=== PATIENT | male | born 1945 | race Caucasian/White ===

== ENCOUNTER → 2017-09-20 09:56 | Day surgery (SDC) | payer OTHER, SELFPAY ==
[2017-09-20 10:27] VITALS: BP 144/96; PULSE 70; TEMP 36.1; O2SAT 99; BMI 24.4
--- NOTE | 2017-09-20 11:09 | PM.HP.1 ---
History of Present Illness Chief complaint: [id number] Narrative: Eleuterio Avery is a 72 year old male He had polyps removed at his last colonoscopy 5 years ago. He is here for screening exam. PFS Medical History Prostate cancer (Acute) Surgical History Status post right knee replacement (Resolved) History of cataract surgery (Inactive) Family History Brother Cancer Prostate cancer Social History household members: spouse Meds Home Medications Medication Instructions Recorded Confirmed Type ASPIRIN (Aspirin EC) 81 mg PO Q DAY #0 10/09/10 09/20/17 History terazosin 5 mg PO Q DAY #0 02/04/17 09/20/17 History Generic Name Dose Route Start Last Admin Trade Name Freq PRN Reason Stop Dose Admin Flumazenil 0.2 mg 09/20/17 10:56 Romazicon IV PRN PRN Benzodiazepine Reversal Sodium Chloride 1,000 mls @ 200 mls/hr 09/20/17 11:00 09/20/17 11:12 Normal Saline 0.9% IV 200 mls/hr CONT TREVOR Administration Naloxone HCl 0.2 mg 09/20/17 10:56 Narcan IV Q2MIN PRN Opiate Reversal Allergies Allergy/AdvReac Type Severity Reaction Status Date / Time No Known Drug Allergies Allergy Verified 09/20/17 10:12 Review of Systems Review of Systems All systems reviewed & are unremarkable except as noted in HPI and below Exam Vital Signs (past 8 hours): Vital Signs - 8 hr 09/20/17 10:27 Temperature 97 F L Pulse Rate 70 Blood Pressure 144/96 H Pulse Oximetry 99 Pulse Oximetry 99 Oxygen Delivery Method Room Air Narrative Exam Narrative: Operative no apparent distress. Neck is supple. No nodes in the supraclavicular areas. Lungs clear to auscultation without rales or rhonchi. Heart regular rate and rhythm me as a 2/6 systolic murmur heard best at the left apex without radiation. Abdomen is mildly protuberant soft nontender without mass. Alert and oriented x3. Assessment & Plan Plan: Plan: I have discussed the procedure and the rationale with the patient including risks of bleeding, perforation which would necessitate a major operation, failure to find remove all lesions and the potential to tattoo. They appeared to understand and wished to proceed.
[2017-09-20] MEDS: SODIUM CHLORIDE 0.9% 1,000 ML 200 ML IV (11:12)
--- NOTE | 2017-09-20 11:15 | PM.PREOP ---
Pre-operative Note Interval Note Pre-op Check: History & Physical exam performed today H&P completed within 30 days and has changed as indicated here:: None ASA Class (for procedural sedation): II
--- NOTE | 2017-09-20 11:16 | P.HP_ITS ---
History of Present Illness Chief complaint: [id number] Narrative: Eleuterio Avery is a 72 year old male He had polyps removed at his last colonoscopy 5 years ago. He is here for screening exam. [facility] Medical History Prostate cancer (Acute) Surgical History Status post right knee replacement (Resolved) History of cataract surgery (Inactive) Family History Brother Cancer Prostate cancer Social History household members: spouse Meds Home Medications Medication Instructions Recorded Confirmed Type ASPIRIN (Aspirin EC) 81 mg PO Q DAY #0 10/09/10 09/20/17 History terazosin 5 mg PO Q DAY #0 02/04/17 09/20/17 History Generic Name Dose Route Start Last Admin Trade Name Freq PRN Reason Stop Dose Admin Flumazenil 0.2 mg 09/20/17 10:56 Romazicon IV PRN PRN Benzodiazepine Reversal Sodium Chloride 1,000 mls @ 200 mls/hr 09/20/17 11:00 09/20/17 11:12 Normal Saline 0.9% IV 200 mls/hr CONT TREVOR Administration Naloxone HCl 0.2 mg 09/20/17 10:56 Narcan IV Q2MIN PRN Opiate Reversal Allergies Allergy/AdvReac Type Severity Reaction Status Date / Time No Known Drug Allergies Allergy Verified 09/20/17 10:12 Review of Systems Review of Systems All systems reviewed & are unremarkable except as noted in HPI and below Exam Vital Signs (past 8 hours): Vital Signs - 8 hr 3 09/20/17 10:27 Temperature 97 F L Pulse Rate 70 Blood Pressure 144/96 H Pulse Oximetry 99 Pulse Oximetry 99 Oxygen Delivery Method Room Air Narrative Exam Narrative: Operative no apparent distress. Neck is supple. No nodes in the supraclavicular areas. Lungs clear to auscultation without rales or rhonchi. Heart regular rate and rhythm me as a 2/6 systolic murmur heard best at the left apex without radiation. Abdomen is mildly protuberant soft nontender without mass. Alert and oriented x3. Assessment & Plan Plan: Plan: I have discussed the procedure and the rationale with the patient including risks of bleeding, perforation which would necessitate a major operation, failure to find remove all lesions and the potential to tattoo. They appeared to understand and wished to proceed.
--- NOTE | 2017-09-20 11:42 | PM.OP.ENDO ---
Operative Date/Time/Diagnoses - Date of procedure: 09/20/17 Time of procedure: 11:42 Pre-op diagnosis: History of polyps Post-op diagnosis: same (Pierson colonic diverticulosis) Procedure & Clinicians Study performed: Colonoscopy Same procedure as scheduled: Yes Indications: Screening in 5 years since last colonoscopy. History of polyps. Surgeon: Rosales Abreu Procedure Notes SCOAP/Timeout: Performed Procedure in detail: The patient was placed in the left lateral decubitus position and underwent IV sedation directed by the surgeon consisting of fentanyl and Versed. Digital exam was remarkable for large firm prostate consistent with patient's diagnosis of prostate cancer. The scope was inserted and advanced through the rectum into the sigmoid, descending, transverse, and ascending colon. The patient was noted to have extensive sigmoid diverticulosis and scattered diverticula elsewhere.. The cecum was reached identified by the ileocecal valve and the appendiceal opening. The ileocecal valve was[not] cannulated. The scope was gradually brought out. The scope ultimately was retroflexed in the rectum. The appearance was[normal in appearance]. The scope was removed and the patient tolerated the procedure well Scope withdrawal time: 7 min Sedation minutes: 25 Findings: diverticulosis (Pierson colonic with heaviest concentration in the sigmoid) Specimen(s): none sent Complications: none Recommendations: Colonscopy in 5 years Plan for aftercare: Follow-up as needed Follow up: as needed Disposition: PACU
[2017-09-20] MEDS: MIDAZOLAM 5 MG/5 ML VIAL IV (11:43)
[2017-09-20] MEDS: fentaNYL 250 MCG/5 ML INJ IV (11:43)
[2017-09-20 11:44] VITALS: BP 109/74; PULSE 64; RESP 20; TEMP 37; O2SAT 93
--- NOTE | 2017-09-20 11:46 | P.OP.ENDO_ITS ---
Operative Date/Time/Diagnoses - Date of procedure: 09/20/17 Time of procedure: 11:42 Pre-op diagnosis: History of polyps Post-op diagnosis: same (Pierson colonic diverticulosis) Procedure & Clinicians Study performed: Colonoscopy Same procedure as scheduled: Yes Indications: Screening in 5 years since last colonoscopy. History of polyps. Surgeon: Rosales Abreu Procedure Notes SCOAP/Timeout: Performed Procedure in detail: The patient was placed in the left lateral decubitus position and underwent IV sedation directed by the surgeon consisting of fentanyl and Versed. Digital exam was remarkable for large firm prostate consistent with patient's diagnosis of prostate cancer. The scope was inserted and advanced through the rectum into the sigmoid, descending, transverse, and ascending colon. The patient was noted to have extensive sigmoid diverticulosis and scattered diverticula elsewhere.. The cecum was reached identified by the ileocecal valve and the appendiceal opening. The ileocecal valve was[not] cannulated. The scope was gradually brought out. The scope ultimately was retroflexed in the rectum. The appearance was[normal in appearance]. The scope was removed and the patient tolerated the procedure well Scope withdrawal time: 7 min Sedation minutes: 25 Findings: diverticulosis (Pierson colonic with heaviest concentration in the sigmoid ) Specimen(s): none sent Complications: none Recommendations: Colonscopy in 5 years Plan for aftercare: Follow-up as needed Follow up: as needed Disposition: PACU
[2017-09-20 11:50] VITALS: BP 116/81; PULSE 69; RESP 14; O2SAT 92
[2017-09-20 11:53] VITALS: BP 116/80; PULSE 60; RESP 11; O2SAT 96
[2017-09-20 11:59] VITALS: BP 111/76; PULSE 62; RESP 15; TEMP 37; O2SAT 93
[2017-09-20 12:11] VITALS: BP 123/82; PULSE 62; RESP 16; TEMP 36.5; O2SAT 97
== END | disposition home or self-care (01) ==
PROVIDERS: PCP Internal Medicine; Visit Provider Specialist
PROC: 0DJD8ZZ Inspection of Lower Intestinal Tract, Via Natural or Artificial Opening Endoscopic (ICD-10-PCS; CPT 45378; principal; 2017-09-20 10:45)
DX: Z12.11 Encounter for screening for malignant neoplasm of colon (principal); Z86.010 Personal history of colon polyps; K57.30 Diverticulosis of large intestine without perforation or abscess without bleeding
CPT/HCPCS: G0105; 99152; 99153; J2250; J3010

== ENCOUNTER → 2018-04-19 11:10 | Outpatient (CLI) | payer OTHER, SELFPAY ==
--- NOTE | 2018-04-19 | DI.RAD.S_ITS ---
PROCEDURE: XR CHEST 2V INDICATIONS: Nonrheumatic aortic (valve) insufficiency TECHNIQUE: 2 views of the chest were acquired. COMPARISON: None. FINDINGS: Surgical changes and devices: None. Lungs and pleura: No pleural effusions or pneumothorax. Lungs are clear. Mediastinum: Mediastinal contours are normal. Heart size is normal. Bones and chest wall: No suspicious bony abnormalities. Soft tissues appear unremarkable. IMPRESSION: No acute cardiopulmonary findings. Dictated by: Renetta Pack M.D. on 04/19/2018 at 12:41 Approved by: Renetta Pack M.D. on 04/19/2018 at 12:41
== END ==
PROVIDERS: PCP Internal Medicine; Visit Provider Internal Medicine Cardiovascular Disease
DX: I35.1 Nonrheumatic aortic (valve) insufficiency (principal)
CPT/HCPCS: 71046

== ENCOUNTER → 2018-05-15 13:38 | Outpatient (CLI) | payer OTHER, SELFPAY ==
--- NOTE | 2018-05-15 14:57 | PM.TREADMILL ---
Cardiac Stress Test Report Referral & Results Date Patient Seen: 05/15/18 Requesting provider: Gurjit Jones Indication: Left bundle branch block Rest ECG: Left bundle branch block Procedure Note: After both written and verbal informed consent the patient had an IV started by the diagnostic imaging RN, and then was hooked up to the treadmill monitoring system. The Lexiscan material, and then the Cardiolite tracer, were administered sequentially. An additional 3 min was spent monitoring the patient while supine on the gurney. The patient had a normal response to all infused materials. Impression: Please see perfusion imaging report for details regarding possible ischemia Please note: Actual ECG tracings can be found in the PACS system.
--- NOTE | 2018-05-16 15:11 | DI.NM.S_ITS ---
DATE OF SERVICE: 05/15/2018 PROCEDURE: Pharmacological perfusion study. INDICATIONS: Chest pressure with underlying left bundle-branch block, hypertension, aortic regurgitation. RADIOPHARMACEUTICAL: 24.9 mCi technetium-99m Myoview IV was injected at stress and 26.7 mCi technetium-99m Myoview IV was injected at rest. CARDIAC STRESS: Patient underwent IV Lexiscan perfusion study under the supervision of an attending staff using standard Lexiscan as per protocol. Baseline rhythm was sinus with underlying left bundle-branch block. Stress EKG did not reveal any new obvious inducible ischemic changes. There were no significant arrhythmias. The patient remained hemodynamically stable. RAW DATA: There was increased subdiaphragmatic activity. GATED STUDY: Stress LV ejection fraction 71%. There was no transient ischemic dilatation. TID ratio is 0.99, which is within normal limits. Resting end- diastolic volume is 128 mL. Lung/heart ratio is 0.38, which is within normal limits. No obvious regional significant wall motion abnormality seen. MYOCARDIAL PERFUSION: Stress supine and resting supine images revealed moderately sized, [id number] decreased perfusion of inferior wall and inferior apex which got completely resolved during prone images suggestive of diaphragmatic tissue attenuation artifact. No obvious convincing ischemia infarction. CONCLUSION: I will call this study likely a normal myocardial perfusion study with evidence of diaphragmatic tissue attenuation artifact which got resolved during prone images. Patient had perfusion study in 03/2017. At that time also he had similar perfusion defect which got resolved during prone images. At that time, calculated left ventricular (LV) ejection fraction was 64% and resting end- diastolic volume 140 mL. Overall, this is a low-risk myocardial perfusion scan. Eleuterio Avery - Carolyn/ doc#: [id number]/job#: [id number] dd: 05/16/2018 12:58:00 dt: 05/16/2018 15:01:00 DICTATING MD/COPIES TO: Nolvia Ruiz MD COPIES MNE: BETSY
== END ==
PROVIDERS: PCP Internal Medicine; Visit Provider Internal Medicine Cardiovascular Disease
DX: I44.7 Left bundle-branch block, unspecified (principal); I35.1 Nonrheumatic aortic (valve) insufficiency; I10 Essential (primary) hypertension; R07.89 Other chest pain
CPT/HCPCS: 78452; 93016; 93017; 93018; A9502; J2785

== ENCOUNTER → 2018-09-16 11:04 | Outpatient (CLI) | payer OTHER, SELFPAY ==
[2018-09-16 13:14] LABS: Prostate Specific Antigen 5.49 ng/mL (0.10-4.00)
== END ==
PROVIDERS: PCP Family Medicine; Visit Provider Urology
DX: R97.20 Elevated prostate specific antigen [PSA] (principal)
CPT/HCPCS: 36415; 84153

== ENCOUNTER → 2018-11-22 19:01 | Outpatient (CLI) | payer OTHER, SELFPAY ==
--- NOTE | 2018-11-22 19:04 | DI.MRI.S_ITS ---
PROCEDURE: MR LUMBAR SPINE WO CON INDICATIONS: ongoing back pain TECHNIQUE: Noncontrast sagittal T1 spin echo and T2 fast echo, sagittal STIR, axial T1 and T2 fast spin echo through the lumbar spine. In cases with scoliosis, additional coronal T2 fast spin echo may be performed. COMPARISON: [facility], CT, IVP (ABD & PEL WWO CONTRAST), 07/08/2017, 9:49. FINDINGS: Image quality: Excellent. Alignment and Curvature: There is minimal anterolisthesis of L4 and L5. No gross pars defect is seen. Bone Marrow: There is marrow edema involving inferior portion of L5 and throughout S1 vertebral bodies. No discrete fracture line is seen. No significant loss of vertebral body heights. No bony erosive changes are seen. Spinal Cord: Conus medullaris terminates at the L1-2 level. Visualized cord demonstrates normal signal and size. Paraspinous Soft Tissues: No paravertebral masses. L1-L2: Mild diffuse disc bulge and bilateral facet arthrosis is seen. No significant canal stenosis or neuroforaminal narrowing. L2-L3: Mild diffuse disc bulge and bilateral facet arthrosis is seen with no significant central canal stenosis or neuroforaminal narrowing. L3-L4: There is decreased intervertebral disc space and degenerative endplate changes. Broad-based disc bulge and bilateral facet arthrosis is seen with mild to moderate central canal stenosis and mild bilateral neuroforaminal narrowing. L4-L5: Decreased intervertebral disc space and degenerative endplate changes are seen. Broad-based disc bulge and bilateral facet arthrosis is seen. There is mild central canal stenosis and moderate right-sided neuroforaminal narrowing. Mild left-sided neural foramina narrowing is also seen. L5-S1: Decreased intervertebral disc space and degenerative end plate changes are seen. Diffuse disc bulge and bilateral facet arthrosis is seen. No significant central canal stenosis. Moderate bilateral neural foramina narrowing is seen. There is likely compression of bilateral exiting L5 nerve roots. IMPRESSION: 1. Edema involving inferior half of L5 vertebral body and S1 vertebral body with no discrete fracture line seen. No loss of vertebral body height. No bony erosive changes. Findings most likely represent Modic type degenerative end plate changes. No other area of abnormal marrow signal is seen. 2. Degenerative disc bulge and bilateral facet arthrosis throughout lumbar spine with mild central canal stenosis and mild to moderate bilateral neuroforaminal narrowing as described above more prominent at L4-5 and L5-S1 levels. 3. Minimal anterolisthesis of L4 on L5. No gross pars defect. Dictated by: Alejandro Hassan M.D. on 11/23/2018 at 10:09 Approved by: Alejandro Hassan M.D. on 11/23/2018 at 10:21
== END ==
PROVIDERS: Family Provider Family Medicine; PCP Family Medicine; Visit Provider Family Medicine
DX: M46.46 Discitis, unspecified, lumbar region (principal); M46.26 Osteomyelitis of vertebra, lumbar region; M47.816 Spondylosis without myelopathy or radiculopathy, lumbar region; M47.817 Spondylosis without myelopathy or radiculopathy, lumbosacral region
CPT/HCPCS: 72148

== ENCOUNTER → 2018-11-28 11:09 | Outpatient (CLI) | payer OTHER, SELFPAY ==
[2018-11-28 12:02] LABS: Add Manual Diff / Slide Review NO; Basophils Absolute Auto 0 /uL (0-100); Basophils Percent Auto 0.4 % (0-2); Eosinophils Absolute Auto 100 /uL (0-450); Eosinophils Percent Auto 1.2 % (2-4); Hematocrit 41.6 % (41-53); Hemoglobin 14.1 g/dL (13.5-17.5); Lymphocytes Absolute Auto 1300 /uL (1100-4500); Lymphocytes Percent Auto 15.7 % (25-40); Mean Corpuscular HGB Conc 33.8 % (30-36); Mean Corpuscular Hemoglobin 31.4 PG (26-34); Mean Corpuscular Volume 92.9 fL (80-100); Monocytes Absolute Auto 700 /uL (0-900); Monocytes Percent Auto 8.6 % (3-14); Neutrophils Absolute Auto 6300 /uL (1500-7000); Neutrophils Percent Auto 74.1 % (50-75); Platelet Count 261 X10^3/uL (150-400); Red Blood Cell Count 4.48 X10^6/uL (4.5-5.9); Red Cell Distribution Width 12.2 % (11.6-14.8); White Blood Cell Count 8.5 X10^3/uL (4.5-11.0)
[2018-11-28 12:14] LABS: C-Reactive Protein Quant 4.5 mg/dL (<1.0)
[2018-11-28 12:15] LABS: Erythrocyte Sedimentation Rate 48 MM/HR (0-15)
[2018-11-28 12:42] LABS: Prostate Specific Antigen Scrn 8.08 ng/mL (0.1-4.0)
== END ==
PROVIDERS: PCP Family Medicine; Visit Provider Family Medicine
DX: M46.47 Discitis, unspecified, lumbosacral region (principal)
CPT/HCPCS: 36415; 85025; 85651; 86140; G0103

== ENCOUNTER 2018-11-29 11:49 | Inpatient (IN) | payer OTHER, SELFPAY ==
[2018-11-29 12:29] VITALS: BP 148/76; PULSE 72; RESP 16; TEMP 37; O2SAT 98
[2018-11-29 13:18] LABS: Add Manual Diff / Slide Review NO; Basophils Absolute Auto 0 /uL (0-100); Basophils Percent Auto 0.3 % (0-2); Eosinophils Absolute Auto 100 /uL (0-450); Eosinophils Percent Auto 0.6 % (2-4); Hematocrit 39.8 % (41-53); Hemoglobin 13.5 g/dL (13.5-17.5); Lymphocytes Absolute Auto 1100 /uL (1100-4500); Lymphocytes Percent Auto 10.8 % (25-40); Mean Corpuscular HGB Conc 33.9 % (30-36); Mean Corpuscular Hemoglobin 31.3 PG (26-34); Mean Corpuscular Volume 92.4 fL (80-100); Monocytes Absolute Auto 700 /uL (0-900); Monocytes Percent Auto 7.1 % (3-14); Neutrophils Absolute Auto 8200 /uL (1500-7000); Neutrophils Percent Auto 81.2 % (50-75); Platelet Count 250 X10^3/uL (150-400); Red Blood Cell Count 4.31 X10^6/uL (4.5-5.9); Red Cell Distribution Width 12.3 % (11.6-14.8); White Blood Cell Count 10.1 X10^3/uL (4.5-11.0)
--- NOTE | 2018-11-29 13:23 | P.HP_ITS ---
History of Present Illness Date Patient Seen: 11/29/18 Time Patient Seen: 11:20 Chief complaint: DIRECT ADMIT LUMBAR OSTEOMYLITIS Narrative: Patient is a 73-year-old otherwise healthy male who presented to clinic in early October for lower back pain. It had been going on for about a month that he initially described as discomfort. Patient saw a chiropractor for Nuca treatment, saw x-ray, was out of alignment in the cervical spine, and got good relief in his lower back from this adjustment. 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 Got another a djustment and got no relief from the pain. Has pain that radiates across the lower back, has taken oxy 5mg from rx given to patient s/p his knee replacement. Has also tried ice, heat, ibuprofen, motrin, aleve. Aleve took 2 hours to take effect but was best at managing pain. Feels like someone took a hammer or knife to my back. Tries also to stretch frequently but this has also not helped. Denies numbness and tingling, denies pain shooting into legs. Denies hip pain. He was given a Medrol Dosepak and sent for physical therapy. He did not make any improvement at all so we obtained an MRI of his lumbar spine. It showed some bone marrow edema and possible diskitis/osteomyelitis. Inf lammatories were drawn and showed a ESR of 48 and a CRP of 4.5. He follows with Dr. Kenney for BPH and his psa was 8 up from 5.3 from September of this year. Patient History Medical History (Updated 11/29/18 @ 19:31 by Cheri Murillo DO) LBBB (left bundle branch block) (Chronic) Colon polyps (Resolved) Diverticulosis (Chronic ~09/2017) Urethral stricture (Acute ~09/2017) Surgical History (Updated 11/29/18 @ 20:15 by Cheri Murillo DO) History of cataract extraction with lens replacement (Acute 09/23/15) History of total right knee replacement (Acute 03/26/15) History of cataract surgery (Inactive) Family History (Updated 09/20/17 @ 11:13 by Rosales Abreu MD) Brother Cancer Prostate cancer Social History household members: spouse Smoking Status: Never smoker alcohol intake: current Family & Social History Social History: household members spouse Tobacco & Substance use: Smoking Status Never smoker Meds Home Medications Medication Instructions Recorded Confirmed Type terazosin 5 mg PO Q DAY #0 02/04/17 11/29/18 History oxycodone 10 mg tablet 10 mg PO Q4-6H PRN #30 tab 11/27/18 11/29/18 Rx Allergies Allergy/AdvReac Type Severity Reaction Status Date / Time No Known Drug Allergies Allergy Verified 10/31/18 10:01 Review of Systems Review of Systems All systems reviewed & are unremarkable except as noted in HPI and below Exam Vital Signs (past 8 hours): - 11/29/18 12:29 Temperature 98.6 F Pulse Rate 72 Respiratory Rate 16 Blood Pressure 148/76 H Pulse Oximetry 98 Oxygen Flow Rate 0 Narrative Exam Narrative: General: cooperative, healthy appearing, well developed, well groomed and acute distress (with motion) moderate Nutritional Appearance: well nourished Orientation: alert, awake and oriented x3 Heart: Regular rate and rhythm, 2-3/6 murmur not new Lungs: Clear to auscultation bilaterally, no wheezes, rales or rhonchi Extremities: Warm and well perfused, no edema Musc Thoracic/Lumbar Spine: straight leg raise negative bilaterally, pain with thoraco-lumbar ROM and thoraco-lumbar spasm Sacroiliac joints: on the left tender to palpation Neuro General: gait abnormal (able to walk on heels and toes, favors right side) and deep tendon reflexes 2+ bilaterally Objective Imaging MRI - lumbar: Radiologist's impression: MPRESSION: 1. Edema involving inferior half of L5 vertebral body and S1 vertebral body with no discrete fracture line seen. No loss of vertebral body height. No bony erosive changes. Findings most likely represent Modic type degenerative end plate changes. No other area of abnormal marrow signal is seen. 2. Degenerative disc bulge and bilateral facet arthrosis throughout lumbar spine with mild central canal stenosis and mild to moderate bilateral neuroforaminal narrowing as described above more prominent at L4-5 and L5-S1 levels. 3. Minimal anterolisthesis of L4 on L5. No gross pars defect. Dictated by: Alejandro Hassan M.D. on 11/23/2018 at 10:09 Approved by: Alejandro Hassan M.D. on 11/23/2018 at 10:21 ADDENDUM: A differential diagnosis for L5-S1 vertebral disc and adjacent vertebral body edema is discitis/vertebral osteomyelitis. There is mild prevertebral soft tissue swelling. Recommend clinical correlation. The result was discussed with Dr. Murillo. Dictated by: Ann Jefferson M.D. on 11/28/2018 at 8:14 Approved by: Ann Jefferson M.D. on 11/28/2018 at 8:19 Labs Result Diagrams: 11/29/18 12:50 11/29/18 12:50 Assessment & Plan Assessment & Plan narrative: 73 yo male who has significant back pain with MRI and lab findings concerning for discitis/osteomyelitis on imaging. He has had no improvement in his pain over the past 3-4 weeks despite a course of steroids and physical therapy. His WBC has increased since yesterday with a slight left yaa ft. He's also had a slight increase in his already elevated CRP since yesterday. Discussed his case with orthopedics who reviewed the imaging. There isn't anything surgical at this time. Possible sources would be a prostatitis but patient has had no symptoms and only a slight bump in his PSA. Blood and urine cultures are pending. A metastatic cancer is another probable cause given his PSA elevation and family history but this wouldn't cause the elevation in WBC. So for now will follow cultures and treat empirically with vancomycin and ceftriaxone and see if he improves. If no improvement in 4-5 days would re-image with and without contrast. Pain control has been an issue at home as well. While patient himself does not endorse severe pain his indicates that there are times when he turns white and shakes because of it. So I am encouraging him to take medication for his pain before it escalates. Will give him a few doses of ketorolac overnight. Would not continue if he will continue to need vancomycin. Monitor his kidney function. Continue terazosin for BPH. Code status: full code DVT prophylaxis: lovenox Patient requires IV antibiotics for osteomyelitis and pain control and will be here for at least 2 midnights while we await culture results. I am hopeful that if this treatment is effective and we can narrow the spectrum of antibiotics by culture that he would be able to receive his infusions at home.
[2018-11-29 13:39] LABS: Alanine Aminotransferase 27 IU/L (21-72); Albumin 3.9 g/dL (3.5-5.0); Albumin Globulin Ratio 1.2 (1.0-2.8); Alkaline Phosphatase 72 U/L (38-126); Aspartate Aminotransferase 28 IU/L (17-59); Bilirubin Total 0.5 mg/dL (0.2-1.3); Blood Urea Nitrogen 18 mg/dL (9-20); C-Reactive Protein Quant 4.9 mg/dL (<1.0); Calcium 9.8 mg/dL (8.4-10.2); Carbon Dioxide 28 mmol/L (22-32); Chloride 99 mmol/L (98-107); Estimated Glomerular Filt Rate > 60.0 mL/min (>60); Globulin 3.2 g/dL (1.7-4.1); Glucose 107 mg/dL (80-110); HEMOLYSIS < 15 (0-50); Potassium 4.3 mmol/L (3.4-5.1); Sodium 138 mmol/L (137-145); Total Protein 7.1 g/dL (6.3-8.2)
[2018-11-29 13:50] VITALS: BMI 22.6
[2018-11-29 15:10] VITALS: BP 131/58; PULSE 76; RESP 18; TEMP 36.7
--- NOTE | 2018-11-29 16:34 | OT.IP.TRT ---
Occupational Therapy Treatment Note M3 OT- IP Subjective and Pain Start: 11/29/18 16:33 Freq: Status: Active Protocol: Document 11/29/18 16:33 GERARDO (Rec: 11/29/18 16:34 GERARDO [id number]) OT- Subjective Occupational Therapy Visit Type Visit Start Time 16:30 Notes OT referral received. Will initiate evaluation in AM.
[2018-11-29 16:45] VITALS: O2SAT 98
[2018-11-29] MEDS: CEFTRIAXONE 2 GM/50 ML FROZ.PIGGY IV (17:33)
[2018-11-29] MEDS: KETOROLAC 30 MG/ML VIAL IV (18:04)
[2018-11-29] MEDS: VANCOMYCIN 1500 MG IV (18:05)
[2018-11-29 19:25] VITALS: BP 137/73; PULSE 63; RESP 18; TEMP 36.7
[2018-11-29] MEDS: DOCUSATE 100 MG CAPSULE PO (21:13)
[2018-11-29] MEDS: OXYCODONE IR 10 MG TABLET PO (21:17)
[2018-11-29 23:30] VITALS: BP 151/61; PULSE 56; RESP 16; TEMP 36.6; O2SAT 95
[2018-11-30] VITALS (8 sets, daily range): BP systolic 119–142; BP diastolic 60–97; PULSE 50–67; RESP 16–19; TEMP 36.3–36.8; O2SAT 95–99
[2018-11-30] MEDS: KETOROLAC 30 MG/ML VIAL IV ×2 (00:23→05:48)
[2018-11-30] MEDS: LORazepam 2 MG/ML INJ 0.5 MG IV (00:47)
[2018-11-30] MEDS: VANCOMYCIN 1500 MG IV (05:49)
[2018-11-30 06:13] LABS: Add Manual Diff / Slide Review NO; Basophils Absolute Auto 0 /uL (0-100); Basophils Percent Auto 0.6 % (0-2); Eosinophils Absolute Auto 200 /uL (0-450); Eosinophils Percent Auto 2.5 % (2-4); Hematocrit 37.2 % (41-53); Hemoglobin 12.7 g/dL (13.5-17.5); Lymphocytes Absolute Auto 1600 /uL (1100-4500); Lymphocytes Percent Auto 24.7 % (25-40); Mean Corpuscular HGB Conc 34.3 % (30-36); Mean Corpuscular Hemoglobin 31.3 PG (26-34); Mean Corpuscular Volume 91.3 fL (80-100); Monocytes Absolute Auto 700 /uL (0-900); Monocytes Percent Auto 10.4 % (3-14); Neutrophils Absolute Auto 4100 /uL (1500-7000); Neutrophils Percent Auto 61.8 % (50-75); Platelet Count 216 X10^3/uL (150-400); Red Blood Cell Count 4.07 X10^6/uL (4.5-5.9); Red Cell Distribution Width 12.4 % (11.6-14.8); White Blood Cell Count 6.6 X10^3/uL (4.5-11.0)
[2018-11-30 06:27] LABS: BUN Creatinine Ratio 26.3 (6-22); Blood Urea Nitrogen 21 mg/dL (9-20); Calcium 9.5 mg/dL (8.4-10.2); Carbon Dioxide 30 mmol/L (22-32); Chloride 103 mmol/L (98-107); Estimated Glomerular Filt Rate > 60.0 mL/min (>60); Glucose 108 mg/dL (80-110); HEMOLYSIS < 15 (0-50); Potassium 4.4 mmol/L (3.4-5.1); Sodium 137 mmol/L (137-145)
--- NOTE | 2018-11-30 08:17 | PM.PN.1 ---
Subjective Date Patient Seen: 11/30/18 Time Patient Seen: 08:17 Interval history: Hospital day 2 with diagnosis of lumbar diskitis/osteomyelitis L5-S1 level. Dr. Murillo did do phone consult with Dr. Garcia regarding the patient's back pain and MRI findings. It was recommended that patient be admitted to the hospital for IV antibiotic. He states his pain level on admission yesterday was 8/10 and now it is 5/10. He denies any leg symptoms. Still notes some discomfort when moving out of bed and walking. No difficulty urinating. [place] [id number]. Urine and blood cultures are pending. He has been afebrile. Exam Vital Signs (past 8 hours): - 11/30/18 03:20 11/30/18 05:03 Temperature 97.6 F Pulse Rate 50 L Respiratory Rate 16 Blood Pressure 139/97 H Pulse Oximetry 97 97 Oxygen Delivery Method Room Air Oxygen Flow Rate 0 Narrative Exam Narrative: Alert, oriented no acute distress resting in bed. Legs. No calf pain or swelling. Pulses symmetrical. Good sensation to touch to lower legs. Good strength on foot dorsiflexion plantar flexion. Objective Labs Result Diagrams: 11/30/18 05:50 11/30/18 05:50 Labs: Laboratory Results - last 24 hr 11/29/18 11/29/18 11/29/18 12:50 12:50 12:50 WBC 10.1 RBC 4.31 L Hgb 13.5 Hct 39.8 L MCV 92.4 MCH 31.3 MCHC 33.9 RDW 12.3 Plt Count 250 Neut % (Auto) 81.2 H Lymph % (Auto) 10.8 L [place] % (Auto) 7.1 Eos % (Auto) 0.6 L Baso % (Auto) 0.3 Neut # (Auto) 8200 H Lymph # (Auto) 1100 [place] # (Auto) 700 Eos # (Auto) 100 Baso # (Auto) 0 Sodium 138 Potassium 4.3 Chloride 99 Carbon Dioxide 28 BUN 18 Creatinine 0.90 Estimated GFR > 60.0 BUN/Creatinine Ratio 20.0 Glucose 107 Calcium 9.8 Total Bilirubin 0.5 AST 28 ALT 27 Alkaline Phosphatase 72 C-Reactive Protein 4.9 H Total Protein 7.1 Albumin 3.9 Globulin 3.2 Albumin/Globulin Ratio 1.2 11/30/18 11/30/18 05:50 05:50 WBC 6.6 RBC 4.07 L Hgb 12.7 L Hct 37.2 L MCV 91.3 MCH 31.3 MCHC 34.3 RDW 12.4 Plt Count 216 Neut % (Auto) 61.8 Lymph % (Auto) 24.7 L [place] % (Auto) 10.4 Eos % (Auto) 2.5 Baso % (Auto) 0.6 Neut # (Auto) 4100 Lymph # (Auto) 1600 [place] # (Auto) 700 Eos # (Auto) 200 Baso # (Auto) 0 Sodium 137 Potassium 4.4 Chloride 103 Carbon Dioxide 30 BUN 21 H Creatinine 0.80 Estimated GFR > 60.0 BUN/Creatinine Ratio 26.3 H Glucose 108 Calcium 9.5 Total Bilirubin AST ALT Alkaline Phosphatase C-Reactive Protein Total Protein Albumin Globulin Albumin/Globulin Ratio Assessment & Plan Assessment & Plan narrative: Plan: Patient will continue on his current antibiotic. Await culture results. Consult for Dr. Garcia is pending later today. Quality VTE Deep Vein Thrombosis/Pulmonary Embolism Present on Admission: No
[2018-11-30] MEDS: ENOXAPARIN 40 MG/0.4 ML SYRINGE SUBCUT (08:55)
[2018-11-30] MEDS: TERAZOSIN 5 MG CAPSULE PO (08:56)
[2018-11-30] MEDS: SODIUM CHLORIDE 0.9% FLUSH 10 ML IV ×2 (08:57→20:09)
--- NOTE | 2018-11-30 09:13 | P.PN_ITS ---
Subjective Date Patient Seen: 11/30/18 Time Patient Seen: 09:12 Interval history: Patient is sitting up before breakfast this morning. Tells me that his pain is improved since last night. Continues to not have any lower urinary tract symptoms. Has not had any fevers. Tolerating his antibiotics well. Exam Vital Signs (past 8 hours): - 11/30/18 03:20 11/30/18 05:03 11/30/18 08:00 Temperature 97.6 F 97.3 F L Pulse Rate 50 L 66 Respiratory Rate 16 16 Blood Pressure 139/97 H 132/65 Pulse Oximetry 97 97 95 Oxygen Delivery Method Room Air Oxygen Flow Rate 0 Narrative Exam Narrative: General: cooperative, healthy appearing, well developed, well groomed, no acute distress, sitting comfortably in hospital bed Nutritional Appearance: well nourished Orientation: alert, awake and oriented x3 Heart: Regular rate and rhythm, 2-3/6 murmur not new Lungs: Clear to auscultation bilaterally, no wheezes, rales or rhonchi : good anal sphincter tone, no stool in the vault, enlarged prostate smooth Extremities: Warm and well perfused, no edema Objective Labs Result Diagrams: 11/30/18 05:50 11/30/18 05:50 Labs: Laboratory Results - last 24 hr 11/29/18 11/29/18 11/29/18 12:50 12:50 12:50 WBC 10.1 RBC 4.31 L Hgb 13.5 Hct 39.8 L MCV 92.4 MCH 31.3 MCHC 33.9 RDW 12.3 Plt Count 250 Neut % (Auto) 81.2 H Lymph % (Auto) 10.8 L [place] % (Auto) 7.1 Eos % (Auto) 0.6 L Baso % (Auto) 0.3 Neut # (Auto) 8200 H Lymph # (Auto) 1100 [place] # (Auto) 700 Eos # (Auto) 100 Baso # (Auto) 0 Sodium 138 Potassium 4.3 Chloride 99 Carbon Dioxide 28 BUN 18 Creatinine 0.90 Estimated GFR > 60.0 BUN/Creatinine Ratio 20.0 Glucose 107 Calcium 9.8 Total Bilirubin 0.5 AST 28 ALT 27 Alkaline Phosphatase 72 C-Reactive Protein 4.9 H Total Protein 7.1 Albumin 3.9 Globulin 3.2 Albumin/Globulin Ratio 1.2 11/30/18 11/30/18 05:50 05:50 WBC 6.6 RBC 4.07 L Hgb 12.7 L Hct 37.2 L MCV 91.3 MCH 31.3 MCHC 34.3 RDW 12.4 Plt Count 216 Neut % (Auto) 61.8 Lymph % (Auto) 24.7 L [place] % (Auto) 10.4 Eos % (Auto) 2.5 Baso % (Auto) 0.6 Neut # (Auto) 4100 Lymph # (Auto) 1600 [place] # (Auto) 700 Eos # (Auto) 200 Baso # (Auto) 0 Sodium 137 Potassium 4.4 Chloride 103 Carbon Dioxide 30 BUN 21 H Creatinine 0.80 Estimated GFR > 60.0 BUN/Creatinine Ratio 26.3 H Glucose 108 Calcium 9.5 Total Bilirubin AST ALT Alkaline Phosphatase C-Reactive Protein Total Protein Albumin Globulin Albumin/Globulin Ratio Assessment & Plan Assessment & Plan narrative: 73 yo male who has significant back pain with MRI and lab findings concerning for discitis/osteomyelitis on imaging. He has had improvement overnight in his pain after starting antibiotics. His WBC is down today. Appreciate orthopedics recommendations. Will continue antibiotics and hope for a definitive source on culture so we can narrow the spectrum. Will consult with ID. A metastatic cancer is another probable cause given his PSA elevation and family history but this wouldn't cause the elevation in WBC. Discussed with urology and they do not believe his small elevation would indicate a prostate malignancy and normal for age. Pain control has been an issue at home as well. While patient himself does not endorse severe pain his indicates that there are times when he turns white and shakes because of it. So I am encouraging him to take medication for his pain before it escalates. PO oxycodone and hydromorphone for breakthrough. Continue terazosin for BPH. Code status: full code DVT prophylaxis: lovenox Patient requires IV antibiotics for osteomyelitis and pain control and will be here for at least another night while we await culture results. I am hopeful that if this treatment is effective and we can narrow the spectrum of antibioti cs by culture that he would be able to receive his infusions at home. Quality VTE Deep Vein Thrombosis/Pulmonary Embolism Present on Admission: No
--- NOTE | 2018-11-30 09:30 | PT.IIE ---
Current Diagnoses Osteomyelitis of vertebra, lumbosacral region (11/29/18) Surgical History (Last Updated 11/29/18 @ 20:15 by Cheri Murillo DO) History of cataract extraction with lens replacement (Acute 09/23/15) History of total right knee replacement (Acute 03/26/15) History of cataract surgery (Inactive) Medical History (Last Updated 11/29/18 @ 19:31 by Cheri Murillo DO) LBBB (left bundle branch block) (Chronic) Colon polyps (Resolved) Diverticulosis (Chronic ~09/2017) Urethral stricture (Acute ~09/2017) Physical Therapy Inpatient Evaluation/Re-Eval M1 PT/OT-IP Prior Functional Status Start: 11/30/18 11:29 Freq: NEEDED Status: Active Protocol: Document 11/30/18 09:30 AB (Rec: 11/30/18 11:38 AB [email or web address]) Medical Review Prior Functional Status Medical History Reviewed Yes Diet/Fluid Consistency Regular Communication able to make needs known Mobility and Gait pt stated that he is independent with all mobilities and ambulation without AD Social History Household Members spouse Living Arrangements House Number of Floors (Floors) 3 or More Floors Number of Stairs To Enter/Railing? has 4 steps with R rail ascending to enter has 12 steps R rail ascending to bedroom level has 12 steps R rail ascending to basement Home Environment Standard Height Toilet Walk in Shower Employment Status Retired M2 PT-IP Current Condition Start: 11/30/18 11:29 Freq: NEEDED Status: Active Protocol: Document 11/30/18 09:30 AB (Rec: 11/30/18 11:38 AB [email or web address]) Physical Therapy Current Condition Current Condition Evaluation Date 11/30/18 Treatment Diagnosis lumbar discitis/osteomyelitis; difficulty in walking Onset Date 11/29/18 M3 PT-IP Subjective Start: 11/30/18 11:29 Freq: NEEDED Status: Active Protocol: Document 11/30/18 09:30 AB (Rec: 11/30/18 11:38 AB [email or web address]) Subjective Physical Therapy Visit Type Type Initial Evaluation Visit Start Time 09:30 Visit Stop Time 10:17 Total Visit Minutes 47 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 Physical Therapy Visit Comments Patient Comments pt agreeable to do PT Therapy Pain Assessment Pain When Pain Assessed At Rest Pain Present Pain Present Pain Reported Location lumbar Intensity 3 Scale Used Numeric (1 - 10) Pain Management Techniques Timing of Activity with Medications M4 PT-IP Mobility and Gait Start: 11/30/18 11:29 Freq: NEEDED Status: Active Protocol: Document 11/30/18 09:30 AB (Rec: 11/30/18 11:38 AB [email or web address]) PT-Bed Mobility Assessment Rolling Type of Rolling Log Rolling Level of Assist Standby Assistance Supine to Sit Supine to Sit Standby Assistance Sit to Supine Sit to Supine Standby Assistance Scooting Scooting to Edge of Bed Standby Assistance PT-Transfer Assessment Sit to and From Stand Sit to and from Stand Standby Assistance Equipment Transfer Assistive Device None Gait Belt Orthotic/Prosthetic Devices or Brace: No Transfers Transfer Destination Bed Chair Transfer Technique Stand Step Pivot Transfer Ability Level of Assist Standby Assistance Comments Mobility Comments pt found standing without AD by the sink and wanted to brush his teeth. spouse in room with pt. Gait Assessment Gait Gait Assistance Required: Standby Assistance Distance (Feet) 250 Assistive Devices Assistive Device None Gait Belt Orthotic/Prosthetic Devices or Brace: No Gait Deviations General Gait Pattern Antalgic Lateral Trunk Lean Factors Limiting Gait Function Factors Limiting Gait Function Pain Comments Gait Comments pt ambulated without AD ~ 250 ft SBA; presents with antalgic gait in lateral trunk lean to the L. pt stated that he has a bad L knee. Stair Climbing Assessment Evaluation Level of Assist On Stairs Standby Assistance Devices Stair Climbing Assistive Devices Right Railing Technique/Endurance Stair Climbing Direction Ascend and Descend Stair Climbing Technique Step Over Step Number of Steps Climbed 3 Query Text: Stair Climbing Set # Repetitions (reps) 5 PT-Balance Assessment Sitting Balance and Reactions Static Sitting Balance Ability Normal Dynamic Sitting Balance Ability Normal Standing Balance and Reactions Static Standing Balance Ability Good Dynamic Standing Balance Ability Fair Device Used without AD M5 PT-IP Objective Assessments Start: 11/30/18 11:29 Freq: NEEDED Status: Active Protocol: Document 11/30/18 09:30 AB (Rec: 11/30/18 11:38 AB [email or web address]) Orientation Orientation/Cognition Level of Alertness Alert Orientation Name Age Birthday Month Date Year Day of Week Place Situation Language Function Ability No Deficits Noted Safety Awareness Understands Safety Issues Memory Description No Deficits Noted Gross Range of Motion Lower Extremity ROM Assessment Within Functional Limits Strength Lower Extremity Strength Assessment Within Functional Limits Coordination Assessment Gross Coordination Gross Coordination WNL Sensation Assessment Sensation Gross Sensation WNL Muscle Tone Muscle Tone WNL Yes M6 PT-IP Treatment Start: 11/30/18 11:29 Freq: NEEDED Status: Active Protocol: Document 11/30/18 09:30 AB (Rec: 11/30/18 11:38 [email or web address]) Physical Therapy Treatment Education Education Provided Precautions Safety Other Treatments Other Treatment Performed educated on log roll bed mobility and back precautions. M7 PT-IP Assessment and Plan Start: 11/30/18 11:29 Freq: NEEDED Status: Active Protocol: Document 11/30/18 09:30 AB (Rec: 11/30/18 11:38 [email or web address]) PT Summary Assessment and Plan Potential Rehabilitation Potential Excellent Status of Condition at Evaluation Stable Summary Impairments Pain ROM Balance Bed Mobility Transfers Gait Activity Tolerance Assessment Summary Pt is doing well with mobility . pt cleared to ambulate in room independently. may ambulate with nurses with supervision for safety. pt aware of safety. PT eval completed and no further PT intervention indicated at this time. Frequency of Treatment Frequency Of Treatment Discharge Recommendations To Nursing Amount of Assist Needed Standby Assistance Discharge Recommendations PT Discharge Recommendations Home
--- NOTE | 2018-11-30 10:46 | CM.DANOTE ---
DCP: Case received, EMR reviewed and met with patient. Introduced self and role. Was able to converse with patient and obtain baseline health information. DCP assessment completed with information currently available. Patient is a 73 year old male who admitted this morning to the care of the hospitalist/orthopedic team. PCP: Dr. Murillo. Payer: confirmed: [facility]. Patient came to the hospital secondary to low back pain. He holds diagnosis of Osteomyletis. He is currently on two antibiotics, and culture is pending. Met with patient. Pleasant, alert and oriented. He lives with his , Nicolasa, who had just come into the room. Patient is active, golfs. Stated that he had been going to outpatient therapy here in [place] for chronic back pain and had noticed a different sort of discomfort. He then had an MRI, and due to diagnosis, was hospitalized. Is working with orthopedics as well, and will be seeing Dr. Garcia today. Kurtis Urbano had also gave report on patient. His primary provider had been in to see patient earlier this morning. P: DCP to continue to follow closely. He will continue with IV therapy while here. Will depend upon culture to see if patient will be able to be switched to oral upon discharge home. Crystal Villafuerte RN/Basic Sciences Professor
[2018-11-30 11:46] LABS: Acinetobacter baumannii Not Detected (Not Detect); Candida albicans Not Detected (Not Detect); Candida glabrata Not Detected (Not Detect); Candida krusei Not Detected (Not Detect); Candida parapsilosis Not Detected (Not Detect); Candida tropicalis Not Detected (Not Detect); E. coli Not Detected (Not Detect); Enterobacter cloacae complex Not Detected (Not Detect); Enterobacteriaceae species Not Detected (Not Detect); Enterococcus species Not Detected (Not Detect); Haemophilus influenzae Not Detected (Not Detect); KPC (carbapenem-resist gene) Not Detected (Not Detect); Listeria monocytogenes Not Detected (Not Detect); Methicillin-resistant gene Not Detected (Not Detect); Neisseria meningitidis Not Detected (Not Detect); Proteus species Not Detected (Not Detect); Pseudomonas aeruginosa Not Detected (Not Detect); Serratia marcescens Not Detected (Not Detect); Staphylococcus species Detected (Not Detect); Streptococcus agalactiae (Gr B Not Detected (Not Detect); Streptococcus pneumonia Not Detected (Not Detect); Streptococcus pyogenes (Gr A) Not Detected (Not Detect); Streptococcus species Not Detected (Not Detect); Vancomycin-rest genes A/B Not Detected (Not Detect)
--- NOTE | 2018-11-30 13:15 | OT.IP.TRT ---
Current Diagnoses Osteomyelitis of vertebra, lumbosacral region (11/29/18) Occupational Therapy Treatment Note M3 OT- IP Subjective and Pain Start: 11/29/18 16:33 Freq: Status: Active Protocol: Document 11/30/18 13:15 GERARDO (Rec: 11/30/18 13:38 PJDonald [email or web address]) OT- Subjective Occupational Therapy Visit Type Type Administrative Note Visit Start Time 13:10 Visit Stop Time 13:15 Total Visit Minutes 5 Notes Brief OT interview completed with this 73 yr old male admitted with L5-S1 lumbar osteomyelitis/discitis, on IV antibiotics. Now that pain is better controlled, pt is independent with self care tasks in room. Note P.T. has cleared pt for independent ambulation. No OT goals identified for this admission. No charge.
[2018-11-30] MEDS: OXYCODONE IR 10 MG TABLET PO ×2 (13:39→20:08)
[2018-11-30] MEDS: CEFTRIAXONE 2 GM/50 ML FROZ.PIGGY IV (17:02)
[2018-11-30] MEDS: VANCOMYCIN 1,500 MG/300 ML FROZ.PIGGY 200 MG IV (18:22)
[2018-12-01] VITALS (8 sets, daily range): BP systolic 99–141; BP diastolic 52–75; PULSE 60–68; RESP 16–18; TEMP 36.4–37.3; O2SAT 94–98
[2018-12-01] MEDS: HYDROMORPHONE 1 MG INJ IV ×2 (00:08→05:59)
[2018-12-01] MEDS: LORazepam 2 MG/ML INJ 0.5 MG IV (02:34)
[2018-12-01] MEDS: OXYCODONE IR 10 MG TABLET PO ×2 (02:34→09:10)
--- NOTE | 2018-12-01 04:32 | CM.MNRNOTE ---
Pt reported pain worse overnight, it had been good all day, now it hurts bad. Pt rates pain 8/10 3hrs after 10mg oxycodone given. Pt given 1mg IV dilaudid with good effect. Pt reported anxiety, PO ativan given. Pt pain con't to be controlled overnight with PO oxycodone. Consult requested for Dr. Garcia, not yet done. Plan to con't IV antibiotics for treatment of osteomyelitis and discitis. Blood cultures drawn on 11/29 with preliminary results of staph, await final results.
[2018-12-01] MEDS: VANCOMYCIN TROUGH 1 REQUEST MISC (05:30)
[2018-12-01 05:50] LABS: Add Manual Diff / Slide Review NO; Basophils Absolute Auto 0 /uL (0-100); Basophils Percent Auto 0.5 % (0-2); Eosinophils Absolute Auto 200 /uL (0-450); Eosinophils Percent Auto 2.5 % (2-4); Hematocrit 36.9 % (41-53); Hemoglobin 12.7 g/dL (13.5-17.5); Lymphocytes Absolute Auto 1600 /uL (1100-4500); Lymphocytes Percent Auto 17.4 % (25-40); Mean Corpuscular HGB Conc 34.3 % (30-36); Mean Corpuscular Hemoglobin 31.5 PG (26-34); Mean Corpuscular Volume 91.8 fL (80-100); Monocytes Absolute Auto 900 /uL (0-900); Monocytes Percent Auto 10.1 % (3-14); Neutrophils Absolute Auto 6300 /uL (1500-7000); Neutrophils Percent Auto 69.5 % (50-75); Platelet Count 227 X10^3/uL (150-400); Red Blood Cell Count 4.03 X10^6/uL (4.5-5.9); White Blood Cell Count 9.1 X10^3/uL (4.5-11.0)
[2018-12-01 05:58] LABS: Blood Urea Nitrogen 18 mg/dL (9-20); Calcium 9.4 mg/dL (8.4-10.2); Carbon Dioxide 28 mmol/L (22-32); Chloride 101 mmol/L (98-107); Estimated Glomerular Filt Rate > 60.0 mL/min (>60); Glucose 109 mg/dL (80-110); HEMOLYSIS < 15 (0-50); Potassium 4.1 mmol/L (3.4-5.1); Sodium 137 mmol/L (137-145); Vancomycin Trough 12.7 ug/mL (10-20)
[2018-12-01] MEDS: SODIUM CHLORIDE 0.9% 250 ML 21 ML IV (05:59)
[2018-12-01] MEDS: VANCOMYCIN 1,500 MG/300 ML FROZ.PIGGY 200 MG IV (06:00)
--- NOTE | 2018-12-01 07:26 | DI.ECHO.S_ITS ---
[facility]---------+ [facility] +---------+ : : [address] : : : : [id number] : : : : Phone: [phone]+ Echocardiogram Report + + :Name: FACUNDO MARTINO Study Date: 12/01/2018 Height: 72 in : :[facility] Weight: 170 lb : : Gender: Male BSA: 2.0 m2 : :: 1945 Age: 73 yrs BP: 139/71 mmHg: :Reason For Study: Endocarditis : : Performed By: Sherice Person : :Referring: LISA RODRÍGUEZ : + + Interpretation Summary Normal left ventricle size with ejection fraction 60-65%. Mildly dilated left atrium. Mild aortic valve sclerosis. Moderate aortic regurgitation. Mild-moderately enlarged ascending aorta (4.3 cm). No vegetation seen. Comparison is made with the echocardiogram of 10-02-15, LV wall thickenss has decreased. Procedure: A two-dimensional transthoracic echocardiogram with color flow and Doppler was performed. The study quality was technically good. Comparison is made with the echocardiogram of 10-02-15. The patient was in normal sinus rhythm during the exam. Left Ventricle: The left ventricle is normal in size. There is normal left ventricular wall thickness. The ejection fraction is estimated to be 60-65%. There are no focal wall motion abnormalities. Right Ventricle: The right ventricle grossly appears normal in size with probable normal systolic function. Atria: The left atrium is mildly dilated. Right atrial size is normal. Mitral Valve: The mitral valve is normal in structure and function. There is no mitral regurgitation noted. Aortic Valve: The aortic valve is trileaflet. The aortic valve opens well. There is mild aortic valve sclerosis. There is moderate aortic regurgitation. Tricuspid Valve: The tricuspid valve is normal in structure and function. There is trace tricuspid regurgitation. The right ventricular systolic pressure is estimated to be at least 23 mmHg based on an estimated right atrial pressure of 3 mm Hg. Pulmonic Valve: The pulmonic valve is normal in structure and function. There is trace pulmonic regurgitation. Great Vessels: The aortic root is mildly dilated. The ascending aorta is mild-moderately enlarged. The aortic arch is at the upper limits of normal in size. The IVC is of normal diameter and collapses greater than 50% with a sniff. This suggests a low right atrial pressure of 3 mm Hg. Pericardium/ Pleura There is no pericardial effusion. There is no pleural effusion. MMode/2D Measurements & Calculations LVIDd: 5.9 cm Ao root diam: 4.1 cm LVIDs: 3.0 cm Aortic Jxn: 3.3 cm FS: 48.1 % asc Aorta Diam: 4.3 cm EPSS: 0.91 cm Ao Arch Diam (Prox Trans): 3.4 cm IVSd: 1.1 cm LVPWd: 0.94 cm LV . diameter/BSA (cm/m^2): 2.9 LV sys. diameter/BSA (cm/m^2): 1.5 LA dimension: 3.9 cm RA long axis: 4.4 cm LA A2 area: 23.6 cm2 RA area: 15.7 cm2 LA A4 area: 22.3 cm2 RA vol: 47.8 ml LA length (vol): 6.2 cm RA : 24.1 ml/m2 LA vol: 72.0 ml RVDd major: 5.5 cm LA vol index: 36.2 ml/m2 RVD1 (basal): 3.4 cm RVD2 (mid): 3.1 cm Doppler Measurements & Calculations Ao V2 max: 178.3 cm/sec AI P1/2t: 694.0 msec Ao V2 mean: 116.8 cm/sec AI dec slope: 171.8 cm/sec2 Ao max P.7 mmHg Ao mean P.4 mmHg Ao V2 VTI: 37.6 cm MV E max jacob: 78.6 cm/sec TR max jacob: 225.6 cm/sec MV A max jacob: 78.6 cm/sec TR max P.4 mmHg MV E/A: 1.0 PA V2 max: 96.1 cm/sec Med Peak E' Jacob: 4.9 cm/sec PA V2 mean: 56.4 cm/sec E/E' med: 15.9 PA mean P.6 mmHg Lat Peak E' Jacob: 5.6 cm/sec PA Accel Time: 0.13 sec E/E' lat: 14.1 E/e' average: 15.0 MV dec time: 0.28 sec MV P1/2t: 84.3 msec MV P1/2t max jacob: 78.1 cm/sec MVA(P1/2t): 2.6 cm2 Electronically signed by: Max Bradley on Reading Physician:12/01/2018 01:17 PM
[2018-12-01] MEDS: TERAZOSIN 5 MG CAPSULE PO (09:09)
[2018-12-01] MEDS: ENOXAPARIN 40 MG/0.4 ML SYRINGE SUBCUT (09:09)
[2018-12-01] MEDS: SODIUM CHLORIDE 0.9% FLUSH 10 ML IV (09:10)
[2018-12-01] MEDS: KETOROLAC 15 MG/ML VIAL IV ×2 (09:12→14:32)
--- NOTE | 2018-12-01 10:30 | PC.NURSE ---
Addendum entered by Sobia Wagoner R.N. 12/01/18 14:53: PAIN - back discomfort 3-4 on scale 0/10, discussed medications, given scheduled toradol now, up ambul hallway, gait steady. Addendum entered by Sobia Wagoner R.N. 12/01/18 12:55: PAIN - lying comfortably in bed, states pain 3 on scale 0/10, discussed medications, declines any narcotic at this time, discussed medications, dosages timing for oxycodone, toradol, will call before pain level increases past 5. Addendum entered by Sobia Wagoner R.N. 12/01/18 11:36: CARDIAC/GI - ECHO completed, discussed constipation and narcotics, per pt, reports had bm yesterday and declined stool softener this am. Addendum entered by Sobia Wagoner R.N. 12/01/18 11:07: MEDICATION - msg left with Dr. Murillo's nurse [phone] to verify the oxycodone change is scheduled and not prn. Original Note: AM NOTE - lying bed, states back pain, lower r side has worsened and medications not providing much relief, 8 on scale 0/10, I'm going backwards pt did sleep a couple hours after the earlier Dr. Chidi perla in this am and toradol iv restarted, after breakfast, given 10mg oxycodone, pt standby assist up to br w/void, states getting up to stand from dangle position in bed is the most difficult, to chair w/ice pack and positioned comfort, recheck and states his pain much improved, smiling talking on cell phone w/spouse at his side.
[2018-12-01] MEDS: BISACODYL 10 MG SUPP PR (13:30)
[2018-12-01] MEDS: CEFTRIAXONE 2 GM/50 ML FROZ.PIGGY IV (17:58)
--- NOTE | 2018-12-01 18:14 | P.DS_ITS ---
History of Present Illness Chief complaint: DIRECT ADMIT LUMBAR OSTEOMYLITIS Narrative: Patient is a 73-year-old otherwise healthy male who presented to clinic in early October for lower back pain. It had been going on for about a month that he initially described as discomfort. Patient saw a chiropractor for Nuca treatment, saw x-ray, was out of alignment in the cervical spine, and got good relief in his lower back from this adjustment. 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 Got another ad justment and got no relief from the pain. Has pain that radiates across the lower back, has taken oxy 5mg from rx given to patient s/p his knee replacement. Has also tried ice, heat, ibuprofen, motrin, aleve. Aleve took 2 hours to take effect but was best at managing pain. Feels like someone took a hammer or knife to my back. Tries also to stretch frequently but this has also not helped. Denies numbness and tingling, denies pain shooting into legs. Denies hip pain. He was given a Medrol Dosepak and sent for physical therapy. He did not make any improvement at all so we obtained an MRI of his lumbar spine. It showed some bone marrow edema and possible diskitis/osteomyelitis. Infl ammatories were drawn and showed a ESR of 48 and a CRP of 4.5. He follows with Dr. Kenney for BPH and his psa was 8 up from 5.3 from September of this year. Discharge Providers Date of admission: 11/29/18 11:49 Discharge Date: 12/01/18 Primary care physician: Cheri Murillo DO Consults: 11/29/18 12:33 Consult to Discharge Planning Routine Comment: Consult to Occupational Therapy Evaluate & Treat Comment: Physician Instructions: Evaluate and treat Consult to Physical Therapy Evaluate & Treat Comment: Physician Instructions: Evaluate and Treat Consult to Physician Routine Comment: Consulting Provider: Mina Garcia Reason for consultation: osteomyelitis Has provider been notified: Yes Discharge provider: Cheri Murillo DO Summary Discharge Diagnosis: Discitis/Osteomyelitis Lumbar degenerative disease BPH Hospital Course: 73 yo healthy male who has significant back pain with MRI and lab findings concerning for discitis/osteomyelitis. He was originally treated with vancomycin and ceftriaxone. He had improvement of his CRP on this treatment. After 36 hours of vancomycin blood cultures showed growth of coag negative staph species, likely contaminant. Vancomycin was stopped. There is still no definitive source for his discitis and there is controversy over whether this is discitis or just degenerative changes. He had improvement in his pain after starting antibiotics and toradol as well as decrease in his inflammatory markers. Had discussions with ID at [facility] who recommends sampling the disc to determine if he has infection and that he can have discitis without positive blood cultures. That we really can't be sure without a sample and then they may be negative as well since he has been on antibiotics. He is very healthy at baseline and does not feel ill. He would like to go home so we will discharge today with continuation of his ceftriaxone, once daily until Tuesday and re-evaluation of his inflammatory markers. We will try to arrange for MRI with contrast or disc biopsy then. Echocardiogram today without evidence of endocarditis which is reassuring. Urine cultures without growth. A metastatic cancer is another probable cause given his PSA elevation and family history but this wouldn't cause the elevation in WBC. Discussed with urology and they do not believe his small PSA elevation would indicate a prostate malignancy and is within normal range for age. His home dose of terazosin for BPH was continued. Code status: full code DVT prophylaxis: lovenox Exam Vital Signs (past 8 hours): - 12/01/18 11:35 12/01/18 16:00 12/01/18 16:39 Temperature 97.6 F 97.8 F Pulse Rate 61 62 Respiratory Rate 16 16 Blood Pressure 105/64 99/52 L Pulse Oximetry 98 96 98 Oxygen Delivery Method Room Air Oxygen Flow Rate 0 Narrative Exam Narrative: General: cooperative, healthy appearing, well developed, well groomed, no acute distress, sitting comfortably in hospital bed Nutritional Appearance: well nourished Orientation: alert, awake and oriented x3 Heart: Regular rate and rhythm, 2-3/6 murmur not new Lungs: Clear to auscultation bilaterally, no wheezes, rales or rhonchi Extremities: Warm and well perfused, no edema Pain on arising, gait appears normal Objective Imaging MRI - lumbar: Radiologist's impression: [address] [address] Magnetic Resonance Report Addendum Patient: Eleuterio Avery RMR#: [id number] : 4Acct:[id number] Age/Sex: 73 / MDate of Service: 11/22/18 Loc: MRI Accession Number: [id number] Procedure: MR lumbar spine wo con Ordering Provider: Cheri Murillo D.O. ADDENDUM This report includes an Addendum and supersedes previous reports for this exam. PROCEDURE: MR LUMBAR SPINE WO CON INDICATIONS: ongoing back pain TECHNIQUE: Noncontrast sagittal T1 spin echo and T2 fast echo, sagittal STIR, axial T1 and T2 fast spin echo through the lumbar spine. In cases with scoliosis, additional coronal T2 fast spin echo may be performed. COMPARISON: [facility], CT, IVP (ABD & PEL WWO CONTRAST), 07/08/2017, 9:49. FINDINGS: Image quality: Excellent. Alignment and Curvature: There is minimal anterolisthesis of L4 and L5. No gross pars defect is seen. Bone Marrow: There is marrow edema involving inferior portion of L5 and through out S1 vertebral bodies. No discrete fracture line is seen. No significant loss of vertebral body heights. No bony erosive changes are seen. Spinal Cord: Conus medullaris terminates at the L1-2 level. Visualized cord demonstrates normal signal and size. Paraspinous Soft Tissues: No paravertebral masses. L1-L2: Mild diffuse disc bulge and bilateral facet arthrosis is seen. No signif icant canal stenosis or neuroforaminal narrowing. L2-L3: Mild diffuse disc bulge and bilateral facet arthrosis is seen with no significant central canal stenosis or neuroforaminal narrowing. L3-L4: There is decreased intervertebral disc space and degenerative endplate changes. Broad-based disc bulge and bilateral facet arthrosis is seen with mild to moderate central canal stenosis and mild bilateral neuroforaminal narrowing. L4-L5: Decreased intervertebral disc space and degenerative endplate changes are seen. Broad-based disc bulge and bilateral facet arthrosis is seen. There is mild central canal stenosis and moderate right-sided neuroforaminal narrowing. Mild left-sided neural foramina narrowing is also seen. L5-S1: Decreased intervertebral disc space and degenerative end plate changes are seen. Diffuse disc bulge and bilateral facet arthrosis is seen. No significant central canal stenosis. Moderate bilateral neural foramina narrowing is seen. There is likely compression of bilateral exiting L5 nerve roots. IMPRESSION: 1. Edema involving inferior half of L5 vertebral body and S1 vertebral body with no discrete fracture line seen. No loss of vertebral body height. No bony erosive changes. Findings most likely represent Modic type degenerative end plate changes. No other area of abnormal marrow signal is seen. 2. Degenerative disc bulge and bilateral facet arthrosis throughout lumbar spine with mild central canal stenosis and mild to moderate bilateral neuroforaminal narrowing as described above more prominent at L4-5 and L5-S1 levels. 3. Minimal anterolisthesis of L4 on L5. No gross pars defect. Dictated by: Alejandro Hassan M.D. on 11/23/2018 at 10:09 Approved by: Alejandro Hassan M.D. on 11/23/2018 at 10:21 ADDENDUM: A differential diagnosis for L5-S1 vertebral disc and adjacent vertebral body edema is discitis/vertebral osteomyelitis. There is mild prevertebral soft tissue swelling. Recommend clinical correlation. The result was discussed with Dr. Murillo. Dictated by: Ann Jefferson M.D. on 11/28/2018 at 8:14 Approved by: Ann Jefferson M.D. on 11/28/2018 at 8:19 Echo: Radiologist's impression: Interpretation Summary Normal left ventricle size with ejection fraction 60-65%. Mildly dilated left atrium. Mild aortic valve sclerosis. Moderate aortic regurgitation. Mild-moderately enlarged ascending aorta (4.3 cm). No vegetation seen. Comparison is made with the echocardiogram of 10-02-15, LV wall thickenss has decreased. Labs Result Diagrams: 12/01/18 05:25 12/01/18 05:25 Labs: Laboratory Results - last 24 hr 11/29/18 12/01/18 12/01/18 12:55 05:25 05:25 WBC RBC Hgb Hct MCV MCH MCHC RDW Plt Count Neut % (Auto) Lymph % (Auto) [place] % (Auto) Eos % (Auto) Baso % (Auto) Neut # (Auto) Lymph # (Auto) [place] # (Auto) Eos # (Auto) Baso # (Auto) Sodium Potassium Chloride Carbon Dioxide BUN Creatinine Estimated GFR BUN/Creatinine Ratio Glucose Calcium C-Reactive Protein 3.0 H Vancomycin Trough 12.7 A. baumannii (PCR) Not detected Toña albicans (PCR) Not detected C. glabrata (PCR) Not detected C. krusei (PCR) Not detected C. parapsilosis (PCR) Not detected C. tropicalis (PCR) Not detected Enterobacteriac sp PCR Not detected E. cloacae complex PCR Not detected Enterococcus sp PCR Not detected E. coli (PCR) Not detected H. influenzae (PCR) Not detected Klebsiella oxytoca PCR Not detected Klebsiella pneumoniae Not detected List. monocytogenes PCR Not detected N. meningitidis (PCR) Not detected Proteus species (PCR) Not detected Serratia marcescens PCR Not detected Staphylococcus sp PCR Detected H Staph aureus (PCR) Not detected mecA-Methicil Res Gene Not detected Streptococcus sp PCR Not detected Group A Strep (PCR) Not detected Strep agalactiae (PCR) Not detected Strep pneumoniae (PCR) Not detected P. aeruginosa (PCR) Not detected Lg/B-Vanco Res Genes Not detected KPC-Carbap Res Gene PCR Not detected 12/01/18 12/01/18 05:25 05:25 WBC 9.1 RBC 4.03 L Hgb 12.7 L Hct 36.9 L MCV 91.8 MCH 31.5 MCHC 34.3 RDW 12.0 Plt Count 227 Neut % (Auto) 69.5 Lymph % (Auto) 17.4 L [place] % (Auto) 10.1 Eos % (Auto) 2.5 Baso % (Auto) 0.5 Neut # (Auto) 6300 Lymph # (Auto) 1600 [place] # (Auto) 900 Eos # (Auto) 200 Baso # (Auto) 0 Sodium 137 Potassium 4.1 Chloride 101 Carbon Dioxide 28 BUN 18 Creatinine 0.90 Estimated GFR > 60.0 BUN/Creatinine Ratio 20.0 Glucose 109 Calcium 9.4 C-Reactive Protein Vancomycin Trough A. baumannii (PCR) Toña albicans (PCR) C. glabrata (PCR) C. krusei (PCR) C. parapsilosis (PCR) C. tropicalis (PCR) Enterobacteriac sp PCR E. cloacae complex PCR Enterococcus sp PCR E. coli (PCR) H. influenzae (PCR) Klebsiella oxytoca PCR Klebsiella pneumoniae List. monocytogenes PCR N. meningitidis (PCR) Proteus species (PCR) Serratia marcescens PCR Staphylococcus sp PCR Staph aureus (PCR) mecA-Methicil Res Gene Streptococcus sp PCR Group A Strep (PCR) Strep agalactiae (PCR) Strep pneumoniae (PCR) P. aeruginosa (PCR) Lg/B-Vanco Res Genes KPC-Carbap Res Gene PCR Discharge Plan Discharge Plan Patient Disposition: Home Discharge comment: Will need antibiotics for the next two days as outpatient. Discharge Med Rec/Prescriptions Prescriptions: New ketorolac 10 mg tablet 10 mg PO TID PRN (Reason: pain) Qty: 15 RF: 0 Continued terazosin 5 MG capsule 5 mg PO Q DAY Qty: 0 RF: 0 oxycodone 10 mg tablet 10 mg PO Q4-6H PRN (Reason: pain) Qty: 30 RF: 0 Follow up/Referrals: Cheri Murillo DO [Primary Care Provider] - 3-5 Days Provider Discharge Instructions Diet: Diet as Tolerated Activity: as tolerated Cold/Heat Therapy: as beneficial Skin/Wound/Dressing Care Report to your healthcare provider any signs of infection, such as:: chills, fever and night sweats Visit Report/Discharge Packet Instructions: Back Pain (Alternative Therapy), Ketorolac Discharge Data Primary Care Provider: Cheri Murillo Attending Provider: Cheri Murillo Admit Date/Time: 11/29/18 11:49 Discharges patient from system. Discharge Date/Time: 12/01/18 19:26 Quality VTE Deep Vein Thrombosis/Pulmonary Embolism Present on Admission: No
== END 2018-12-01 19:26 | disposition home or self-care (01) | DRG 541 ==
PROVIDERS: Admitting Provider Family Medicine; PCP Family Medicine; Visit Provider Family Medicine
DX: M46.27 Osteomyelitis of vertebra, lumbosacral region (principal); M46.47 Discitis, unspecified, lumbosacral region; N40.0 Benign prostatic hyperplasia without lower urinary tract symptoms
CPT/HCPCS: 36415; 80048; 80053; 80202; 85025; 85651; 86140; 87040; 87077; 87086; 87150; 87186; 87205; 93306; 97161; 99223; 99233; 99239; G0103; G0379; J0696; J1170; J1650; J1885; J2060

== ENCOUNTER → 2018-12-02 17:42 | Outpatient (CLI) | payer OTHER, SELFPAY ==
[2018-11-29 13:50] VITALS: BMI 22.6
[2018-12-02] MEDS: CEFTRIAXONE 2 GM/50 ML FROZ.PIGGY IV (17:45)
[2018-12-02 18:17] VITALS: BP 131/71; PULSE 61; RESP 16; TEMP 36.6; O2SAT 99
--- NOTE | 2018-12-02 18:19 | PC.ADMIT ---
[id number] [facility] Admission Note: The patient,Eleuterio Avery,73 y/o, was given written information regarding hospital policies, unit procedures and contact persons. Patient's smoking status: Never smoker. Vital Signs - 8 hr 12/02/18 18:17 Temperature 97.9 F Pulse Rate 61 Respiratory Rate 16 Blood Pressure 131/71 Pulse Oximetry 99 Patient arrived to from home for IV Rocephin infusion as ordered by Dr. Murillo. Awake, alert, ambulated independently to room 202. Pleasant and calm, tolerated infusion well. Peripheral IV previously established during inpatient, flushed and infused well. VSS and afebrile. Patient verbalized understanding of IV antibiotic therapy and discussed importance of F/U 12/03 for second IV transfusion.
[2018-12-03] MEDS: CEFTRIAXONE 2 GM/50 ML FROZ.PIGGY IV (17:45)
--- NOTE | 2018-12-03 17:58 | PC.NURSE ---
Ivon shift note: Patient arrived for peripheral infusion of IV Rocephin. Peripheral access already established, flushing and infusing well. Patient pleasant and cooperative, asymptomatic. VSS and afebrile. Verbalized understanding of MRI appointment 12/04 and follow up with Dr. Murillo.
[2018-12-03 18:04] LABS: Add Manual Diff / Slide Review NO; Basophils Absolute Auto 0 /uL (0-100); Basophils Percent Auto 0.5 % (0-2); Eosinophils Absolute Auto 100 /uL (0-450); Eosinophils Percent Auto 1.6 % (2-4); Hemoglobin 12.7 g/dL (13.5-17.5); Lymphocytes Absolute Auto 1700 /uL (1100-4500); Lymphocytes Percent Auto 21.6 % (25-40); Mean Corpuscular HGB Conc 33.3 % (30-36); Mean Corpuscular Hemoglobin 31.1 PG (26-34); Mean Corpuscular Volume 93.2 fL (80-100); Monocytes Absolute Auto 700 /uL (0-900); Monocytes Percent Auto 9.3 % (3-14); Neutrophils Absolute Auto 5300 /uL (1500-7000); Platelet Count 221 X10^3/uL (150-400); Red Blood Cell Count 4.07 X10^6/uL (4.5-5.9); Red Cell Distribution Width 12.2 % (11.6-14.8); White Blood Cell Count 7.9 X10^3/uL (4.5-11.0)
[2018-12-03 18:17] VITALS: BP 133/69; PULSE 67; RESP 18; TEMP 36.6; O2SAT 98
[2018-12-03 18:21] LABS: INR 1.1 (0.9-1.3); Prothrombin Time 12.3 SECONDS (10.1-12.7)
[2018-12-03 18:30] LABS: BUN Creatinine Ratio 41.4 (6-22); Blood Urea Nitrogen 29 mg/dL (9-20); C-Reactive Protein Quant 2.3 mg/dL (<1.0); Calcium 9.6 mg/dL (8.4-10.2); Carbon Dioxide 28 mmol/L (22-32); Chloride 102 mmol/L (98-107); Estimated Glomerular Filt Rate > 60.0 mL/min (>60); Glucose 104 mg/dL (80-110); HEMOLYSIS < 15 (0-50); Potassium 4.4 mmol/L (3.4-5.1); Sodium 138 mmol/L (137-145)
== END ==
PROVIDERS: PCP Family Medicine; Visit Provider Family Medicine
DX: M46.26 Osteomyelitis of vertebra, lumbar region (principal)
CPT/HCPCS: 36415; 80048; 85025; 85610; 86140; J0696

== ENCOUNTER → 2018-12-04 11:57 | Outpatient (CLI) | payer OTHER, SELFPAY ==
[2018-11-29 13:50] VITALS: BMI 22.6
--- NOTE | 2018-12-04 12:01 | DI.MRI.S_ITS ---
PROCEDURE: MR LUMBAR SPINE WO/W CON INDICATIONS: 73 year-old man with discitis. The patient has been treated with antibiotics. TECHNIQUE: Noncontrast sagittal T1 spin echo and T2 fast spin echo, sagittal STIR, axial T1 and T2 fast spin echo through the lumbar spine. In cases with scoliosis, additional coronal T2 fast spin echo may be performed. After the administration of contrast, sagittal and axial T1 spin echo with fat saturation through the lumbar spine. COMPARISON: [facility], , MR LUMBAR SPINE WO CON, 11/22/2018, 19:23. FINDINGS: Image quality: Excellent. Alignment and curvature: There is normal bony alignment. Marrow: There is abnormal signal and enhancement involving the L5 and S1 vertebral bodies. Increased T2 signal and enhancement are also noted in anterior disc space. No acute vertebral body compression fractures. No suspicious marrow enhancement. Spinal cord: Conus medullaris terminates at the L1-L2 level. Visualized spinal cord demonstrates normal signal, without suspicious enhancement. Paraspinous soft tissues: No paravertebral masses or abnormal enhancement. L1-L2: Preserved disc height and disc signal. There is mild posterior disc bulge. The central canal is patent. No foraminal stenosis. No definitive nerve root impingement. L2-L3: Mild loss of disc height and disc signal. There is mild posterior disc bulge. Mild bilateral facet arthropathy. The central canal is patent. No foraminal stenosis. No definitive nerve root impingement. L3-L4: Preserved disc height and disc signal. There is mild posterior disc bulge. Mild bilateral facet arthropathy. The central canal is patent. Mild bilateral foraminal stenosis. No definitive nerve root impingement. L4-L5: Preserved disc height and disc signal. There is mild posterior disc bulge. Mild bilateral facet arthropathy. The central canal is patent. Mild bilateral foraminal stenosis. No definitive nerve root impingement. L5-S1: Moderate loss of disc height. There is increased T2 signal in the intervertebral disc. There is mild posterior disc bulge. A posterior central annular fissure is present. Mild bilateral facet arthropathy. The central canal is patent. Moderate to severe bilateral bilateral foraminal stenosis. No definitive nerve root impingement. IMPRESSION: 1. There is abnormal signal and enhancement of the L5 and S1 vertebral bodies. Abnormal signal and enhancement are also noted in anterior L5-S1 disc space with associated prevertebral soft tissue enhancement at L5-S1. The MRI findings would be compatible with discitis and vertebral osteomyelitis. There is significant degenerative disc disease at L5-S1. A differential diagnosis is reactive marrow signal changes (Modic type I) but paravertebral soft tissue involvement is rare in degenerative disc disease. 2. Multilevel degenerative disc disease and facet arthropathy as described. I have discussed the patient with Dr. Murillo. The patient has elevated inflammatory markers and has been on antibiotics treatment. Dictated by: Ann Jefferson M.D. on 12/04/2018 at 13:16 Approved by: Ann Jefferson M.D. on 12/04/2018 at 13:52
== END ==
PROVIDERS: PCP Family Medicine; Visit Provider Family Medicine
DX: M54.5 Low back pain (principal); M46.26 Osteomyelitis of vertebra, lumbar region
CPT/HCPCS: 72158

== ENCOUNTER → 2018-12-05 10:07 | Outpatient (CLI) | payer OTHER, SELFPAY ==
[2018-11-29 13:50] VITALS: BMI 22.6
--- NOTE | 2018-12-05 10:09 | DI.RAD.S_ITS ---
PROCEDURE: FL GUIDED PICC PLACEMENT INDICATIONS: mcc antibiotics COMPARISON: [facility], MR, MR LUMBAR SPINE WO/W CON, 12/04/2018, 12:15. FINDINGS: PICC was placed by the intravenous therapy team from the right side. Fluoroscopic spot film demonstrates tip of PICC in the SVC. IMPRESSION: Tip of PICC lies within the SVC. Dictated by: Ann Jefferson M.D. on 12/05/2018 at 13:40 Approved by: Ann Jefferson M.D. on 12/05/2018 at 13:40
== END ==
PROVIDERS: PCP Family Medicine; Visit Provider Family Medicine
DX: M46.46 Discitis, unspecified, lumbar region (principal); M46.26 Osteomyelitis of vertebra, lumbar region
CPT/HCPCS: 36573

== ENCOUNTER → 2019-01-09 15:00 | Oncology outpatient (ONC) | payer OTHER, SELFPAY ==
[2018-12-04] MEDS: CEFTRIAXONE 2 GM/50 ML FROZ.PIGGY IV (15:20)
[2018-12-04 15:25] VITALS: BP 110/67; PULSE 70; RESP 18; TEMP 36.8; O2SAT 98
--- NOTE | 2018-12-04 15:28 | PC.NURSE ---
IV site dc'd with cath intact. area pink, tender. pt getting a PICC tomorrow.
[2018-12-05] MEDS: CEFTRIAXONE 2 GM/50 ML FROZ.PIGGY IV (15:28)
[2018-12-05 15:36] VITALS: BP 134/72; PULSE 69; RESP 18; TEMP 36.9; O2SAT 99
[2018-12-06 15:18] VITALS: BP 135/71; PULSE 62; RESP 16; TEMP 36.5; O2SAT 98
[2018-12-06] MEDS: CEFTRIAXONE 2 GM/50 ML FROZ.PIGGY IV (15:43)
[2018-12-09] MEDS: CEFTRIAXONE 2 GM/50 ML FROZ.PIGGY IV (14:58)
[2018-12-09 14:59] VITALS: BP 121/69; PULSE 78; RESP 20; TEMP 36.4; O2SAT 98
[2018-12-10] MEDS: CEFTRIAXONE 2 GM/50 ML FROZ.PIGGY IV (14:40)
--- NOTE | 2018-12-10 15:09 | PC.NURSE ---
Infusion Pt arrived and PICC flushed. Ceftriaxone started without issue. Dapto arrived and awaiting infusion of Ceftriaxone to complete before starting. Pt up in chair.
[2018-12-10 15:22] VITALS: BP 127/65; PULSE 75; RESP 16
--- NOTE | 2018-12-10 19:00 | PC.NURSE ---
post infusion note Pt tolerated abx infusion well. Right upper arm PICC flushed per protocol.
--- NOTE | 2018-12-11 11:16 | ONC.SCHED ---
patient spent last Tuesday night at hospital in [place] . . . had infusion for that day done there. He will bring records from that hospital stay when he come in today.
[2018-12-11 15:34] VITALS: BP 139/76; PULSE 70; RESP 16; TEMP 36.4; O2SAT 98
[2018-12-11] MEDS: CEFTRIAXONE 2 GM/50 ML FROZ.PIGGY IV (15:35)
[2018-12-12 15:24] LABS: Add Manual Diff / Slide Review NO; Basophils Absolute Auto 0 /uL (0-100); Basophils Percent Auto 0.5 % (0-2); Eosinophils Absolute Auto 200 /uL (0-450); Eosinophils Percent Auto 3.2 % (2-4); Hematocrit 36.5 % (41-53); Hemoglobin 12.5 g/dL (13.5-17.5); Lymphocytes Absolute Auto 1100 /uL (1100-4500); Mean Corpuscular HGB Conc 34.2 % (30-36); Mean Corpuscular Hemoglobin 31.1 PG (26-34); Monocytes Absolute Auto 700 /uL (0-900); Monocytes Percent Auto 10.5 % (3-14); Neutrophils Absolute Auto 4900 /uL (1500-7000); Neutrophils Percent Auto 69.8 % (50-75); Platelet Count 159 X10^3/uL (150-400); Red Blood Cell Count 4.01 X10^6/uL (4.5-5.9); Red Cell Distribution Width 12.5 % (11.6-14.8); White Blood Cell Count 7.1 X10^3/uL (4.5-11.0)
[2018-12-12 15:39] LABS: Alanine Aminotransferase 22 IU/L (21-72); Albumin 3.9 g/dL (3.5-5.0); Albumin Globulin Ratio 1.2 (1.0-2.8); Alkaline Phosphatase 73 U/L (38-126); Aspartate Aminotransferase 24 IU/L (17-59); BUN Creatinine Ratio 18.9 (6-22); Bilirubin Total 0.5 mg/dL (0.2-1.3); Blood Urea Nitrogen 17 mg/dL (9-20); C-Reactive Protein Quant 6.5 mg/dL (<1.0); Calcium 9.6 mg/dL (8.4-10.2); Carbon Dioxide 28 mmol/L (22-32); Chloride 99 mmol/L (98-107); Estimated Glomerular Filt Rate > 60.0 mL/min (>60); Globulin 3.3 g/dL (1.7-4.1); Glucose 126 mg/dL (80-110); HEMOLYSIS < 15 (0-50); Potassium 4.2 mmol/L (3.4-5.1); Sodium 138 mmol/L (137-145); Total Protein 7.2 g/dL (6.3-8.2)
[2018-12-12 15:46] LABS: Erythrocyte Sedimentation Rate 39 MM/HR (0-15)
[2018-12-12] MEDS: CEFTRIAXONE 2 GM/50 ML FROZ.PIGGY IV (16:38)
[2018-12-13] MEDS: CEFTRIAXONE 2 GM/50 ML FROZ.PIGGY IV (16:07)
[2018-12-14 14:44] VITALS: BP 128/73; PULSE 70; RESP 18; TEMP 37; O2SAT 97
[2018-12-14] MEDS: CEFTRIAXONE 2 GM/50 ML FROZ.PIGGY IV (15:23)
[2018-12-14 16:56] LABS: Creatine Kinase 40 U/L (55-170)
[2018-12-15] MEDS: CEFTRIAXONE 2 GM/50 ML FROZ.PIGGY IV (14:30)
[2018-12-15 14:36] VITALS: BP 143/69; PULSE 68; RESP 16; TEMP 36.4; O2SAT 99
--- NOTE | 2018-12-15 15:27 | PC.NURSE ---
Addendum entered by Barbara Peoples R.N. 12/15/18 15:55: 1559 - Patient's daptomycin completed. PICC line heplocked per protocol. Patient ambulated off unit in good condition with all belongings. Original Note: Infusion PICC flushed without issue and has positive blood return. Abx infused without issue. Daptomycin infusing at change of shift. Informed oncoming RN of infusion.
[2018-12-16] MEDS: CEFTRIAXONE 2 GM/50 ML FROZ.PIGGY IV (14:38)
--- NOTE | 2018-12-16 16:16 | PC.NURSE ---
Pt IV ABO complete PICC fluished per protocal Discharge in stable condition.
[2018-12-17 13:45] VITALS: BP 144/70; PULSE 66; RESP 16; TEMP 36.6; O2SAT 99
[2018-12-17] MEDS: CEFTRIAXONE 2 GM/50 ML FROZ.PIGGY IV (14:02)
--- NOTE | 2018-12-17 14:23 | PC.NURSE ---
Pt is here for IV antibiotics at 1345. Tolerating well.
--- NOTE | 2018-12-17 15:25 | PC.NURSE ---
Pt just left after his iv antibiotic infused. Tolerated well and picc flushed before leaving. All VSS.
[2018-12-18 14:33] LABS: Add Manual Diff / Slide Review NO; Basophils Absolute Auto 100 /uL (0-100); Basophils Percent Auto 0.9 % (0-2); Eosinophils Absolute Auto 100 /uL (0-450); Eosinophils Percent Auto 1.9 % (2-4); Hematocrit 37.6 % (41-53); Hemoglobin 12.6 g/dL (13.5-17.5); Lymphocytes Absolute Auto 1100 /uL (1100-4500); Lymphocytes Percent Auto 15.5 % (25-40); Mean Corpuscular HGB Conc 33.6 % (30-36); Mean Corpuscular Hemoglobin 30.8 PG (26-34); Mean Corpuscular Volume 91.7 fL (80-100); Monocytes Absolute Auto 500 /uL (0-900); Neutrophils Absolute Auto 5200 /uL (1500-7000); Neutrophils Percent Auto 74.7 % (50-75); Platelet Count 182 X10^3/uL (150-400); Red Blood Cell Count 4.11 X10^6/uL (4.5-5.9); Red Cell Distribution Width 12.5 % (11.6-14.8); White Blood Cell Count 6.9 X10^3/uL (4.5-11.0)
[2018-12-18 14:49] LABS: Alanine Aminotransferase 20 IU/L (21-72); Albumin 3.8 g/dL (3.5-5.0); Albumin Globulin Ratio 1.2 (1.0-2.8); Alkaline Phosphatase 87 U/L (38-126); Aspartate Aminotransferase 24 IU/L (17-59); BUN Creatinine Ratio 28.6 (6-22); Bilirubin Total 0.4 mg/dL (0.2-1.3); Blood Urea Nitrogen 20 mg/dL (9-20); C-Reactive Protein Quant 1.4 mg/dL (<1.0); Calcium 9.6 mg/dL (8.4-10.2); Carbon Dioxide 26 mmol/L (22-32); Chloride 103 mmol/L (98-107); Estimated Glomerular Filt Rate > 60.0 mL/min (>60); Globulin 3.2 g/dL (1.7-4.1); Glucose 125 mg/dL (80-110); HEMOLYSIS < 15 (0-50); Potassium 4.2 mmol/L (3.4-5.1); Sodium 139 mmol/L (137-145)
[2018-12-18 14:56] VITALS: BP 139/76; PULSE 69; RESP 18; TEMP 36.7; O2SAT 96
[2018-12-18 14:57] LABS: Erythrocyte Sedimentation Rate 24 MM/HR (0-15)
[2018-12-18] MEDS: CEFTRIAXONE 2 GM/50 ML FROZ.PIGGY IV (15:16)
[2018-12-19] MEDS: CEFTRIAXONE 2 GM/50 ML FROZ.PIGGY IV (14:08)
[2018-12-19 14:17] VITALS: BP 129/68; PULSE 74; RESP 16; TEMP 36.7; O2SAT 97
[2018-12-20 14:45] VITALS: BP 138/77; PULSE 73; RESP 20; TEMP 36.4; O2SAT 97
[2018-12-20] MEDS: CEFTRIAXONE 2 GM/50 ML FROZ.PIGGY IV (14:52)
[2018-12-21 14:21] VITALS: BP 126/73; PULSE 62; RESP 16; TEMP 36.6; O2SAT 99
[2018-12-21] MEDS: CEFTRIAXONE 2 GM/50 ML FROZ.PIGGY IV (14:28)
[2018-12-22] MEDS: CEFTRIAXONE 2 GM/50 ML FROZ.PIGGY IV (14:03)
[2018-12-22 14:09] VITALS: BP 133/79; PULSE 76; RESP 18; O2SAT 98
[2018-12-23 13:55] VITALS: BP 110/69; PULSE 78; RESP 14; O2SAT 96
[2018-12-23] MEDS: CEFTRIAXONE 2 GM/50 ML FROZ.PIGGY IV (14:00)
--- NOTE | 2018-12-23 15:38 | PC.NURSE ---
Infusion complete. Picc flushed. Pt ambulated off AC unit
[2018-12-24] MEDS: CEFTRIAXONE 2 GM/50 ML FROZ.PIGGY IV (13:47)
[2018-12-24 13:52] VITALS: BP 106/73; PULSE 72; RESP 18; TEMP 36.4; O2SAT 99
[2018-12-25] MEDS: CEFTRIAXONE 2 GM/50 ML FROZ.PIGGY IV (14:35)
[2018-12-25 14:50] LABS: Add Manual Diff / Slide Review NO; Basophils Absolute Auto 100 /uL (0-100); Basophils Percent Auto 1.1 % (0-2); Eosinophils Absolute Auto 200 /uL (0-450); Hematocrit 39.9 % (41-53); Hemoglobin 13.6 g/dL (13.5-17.5); Lymphocytes Absolute Auto 1200 /uL (1100-4500); Lymphocytes Percent Auto 13.5 % (25-40); Mean Corpuscular HGB Conc 34.1 % (30-36); Mean Corpuscular Hemoglobin 30.9 PG (26-34); Mean Corpuscular Volume 90.8 fL (80-100); Monocytes Absolute Auto 600 /uL (0-900); Monocytes Percent Auto 7.4 % (3-14); Neutrophils Absolute Auto 6500 /uL (1500-7000); Platelet Count 184 X10^3/uL (150-400); White Blood Cell Count 8.6 X10^3/uL (4.5-11.0)
[2018-12-25 15:10] LABS: Creatine Kinase 28 U/L (55-170)
[2018-12-25 15:13] LABS: Alanine Aminotransferase 25 IU/L (21-72); Albumin Globulin Ratio 1.2 (1.0-2.8); Alkaline Phosphatase 79 U/L (38-126); Aspartate Aminotransferase 28 IU/L (17-59); BUN Creatinine Ratio 22.5 (6-22); Bilirubin Total 0.5 mg/dL (0.2-1.3); Blood Urea Nitrogen 18 mg/dL (9-20); Calcium 9.8 mg/dL (8.4-10.2); Carbon Dioxide 27 mmol/L (22-32); Chloride 102 mmol/L (98-107); Estimated Glomerular Filt Rate > 60.0 mL/min (>60); Globulin 3.3 g/dL (1.7-4.1); Glucose 108 mg/dL (80-110); HEMOLYSIS < 15 (0-50); Potassium 4.4 mmol/L (3.4-5.1); Sodium 138 mmol/L (137-145); Total Protein 7.3 g/dL (6.3-8.2)
[2018-12-25 15:43] LABS: Erythrocyte Sedimentation Rate 12 MM/HR (0-15)
[2018-12-26 15:03] VITALS: BP 122/78; PULSE 73; RESP 16; TEMP 36.6; O2SAT 99
[2018-12-26] MEDS: CEFTRIAXONE 2 GM/50 ML FROZ.PIGGY IV (15:05)
[2018-12-27] MEDS: CEFTRIAXONE 2 GM/50 ML FROZ.PIGGY IV (14:55)
[2018-12-27 15:06] VITALS: BP 112/63; PULSE 74; RESP 16; TEMP 36.4; O2SAT 74
[2018-12-28] MEDS: CEFTRIAXONE 2 GM/50 ML FROZ.PIGGY IV (15:21)
[2018-12-28 15:44] VITALS: BP 137/81; PULSE 73; RESP 16; TEMP 36.9; O2SAT 98
[2018-12-29] MEDS: CEFTRIAXONE 2 GM/50 ML FROZ.PIGGY IV (14:36)
--- NOTE | 2018-12-29 14:39 | PC.NURSE ---
Pt arrived via home, walking in under own power, feeling pretty well. Picc accessed without difficulty.
[2018-12-29 14:46] VITALS: BP 146/74; PULSE 70; RESP 16; TEMP 36.6; O2SAT 100
[2018-12-30 13:34] VITALS: BP 132/80; PULSE 80; RESP 16; TEMP 36.4
[2018-12-30] MEDS: SODIUM CHLORIDE 0.9% FLUSH 10 ML IV ×2 (13:48→14:25)
[2018-12-30] MEDS: CEFTRIAXONE 2 GM/50 ML FROZ.PIGGY IV (13:48)
[2018-12-30] MEDS: SODIUM CHLORIDE 0.9% 250 ML 21 ML IV (13:48)
--- NOTE | 2018-12-30 13:52 | PC.NURSE ---
Addendum entered by Jailyn Suarez R.N. 12/30/18 14:28: IV infusion complete without issue. VSS. GOPAL PICC [place] flushed with NS per Hospital policy and protocol. pt left unit up ad allie in no distress at 1425. Original Note: Day Shift- Infusion Pt arrived at 1330 up ad allie by himself. settled into room 201, call light within reach. VSS, afebrile, GOPAL PICC [place] flushes easily with brisk blood return. Last changed 12/28 noted on PICC dressing. IVF started, no new concerns. Pt given ice water per request.
[2018-12-30 14:20] VITALS: BP 113/66; PULSE 77; RESP 18; TEMP 36.4; O2SAT 98
[2018-12-31 14:00] VITALS: BP 117/74; PULSE 76; RESP 18; TEMP 36.4
[2018-12-31] MEDS: SODIUM CHLORIDE 0.9% 250 ML 21 ML IV (14:11)
[2018-12-31] MEDS: CEFTRIAXONE 2 GM/50 ML FROZ.PIGGY IV (14:11)
[2018-12-31] MEDS: SODIUM CHLORIDE 0.9% FLUSH 10 ML IV ×2 (14:11→14:45)
--- NOTE | 2018-12-31 14:14 | PC.NURSE ---
Addendum entered by Jailyn Suarez R.N. 12/31/18 14:51: Infusion complete, VSS, afebrile. pt tolerated well with no concerns. GOPAL PICC flushed with NS per Hospital policy and protocol. Pt left unit at 1449 in no distress up ad allie. Original Note: Day Shift-OP infusion Pt arrived at 1350 up ad allie by himself. Settled into room 203 in recliner chair, call light within reach. VSS, afebrile, no new concerns. GOPAL PICC dressing CDI, flushes well with brisk blood return. Antibiotic infusion started.
[2018-12-31 14:43] VITALS: BP 138/75; PULSE 73; RESP 18; TEMP 36.7
[2019-01-01] MEDS: CEFTRIAXONE 2 GM/50 ML FROZ.PIGGY IV (14:46)
[2019-01-01 14:55] VITALS: BP 126/69; PULSE 64; RESP 16; TEMP 36.5; O2SAT 96
[2019-01-01 15:06] LABS: Add Manual Diff / Slide Review NO; Basophils Absolute Auto 100 /uL (0-100); Eosinophils Absolute Auto 100 /uL (0-450); Eosinophils Percent Auto 1.4 % (2-4); Hematocrit 41.6 % (41-53); Hemoglobin 13.9 g/dL (13.5-17.5); Lymphocytes Absolute Auto 1000 /uL (1100-4500); Lymphocytes Percent Auto 11.7 % (25-40); Mean Corpuscular HGB Conc 33.4 % (30-36); Mean Corpuscular Hemoglobin 30.6 PG (26-34); Mean Corpuscular Volume 91.7 fL (80-100); Monocytes Absolute Auto 600 /uL (0-900); Neutrophils Absolute Auto 6600 /uL (1500-7000); Neutrophils Percent Auto 78.9 % (50-75); Platelet Count 174 X10^3/uL (150-400); Red Blood Cell Count 4.53 X10^6/uL (4.5-5.9); Red Cell Distribution Width 13.4 % (11.6-14.8); White Blood Cell Count 8.3 X10^3/uL (4.5-11.0)
[2019-01-01 15:21] LABS: Alanine Aminotransferase 16 IU/L (21-72); Albumin 4.1 g/dL (3.5-5.0); Albumin Globulin Ratio 1.3 (1.0-2.8); Alkaline Phosphatase 87 U/L (38-126); Aspartate Aminotransferase 23 IU/L (17-59); BUN Creatinine Ratio 21.3 (6-22); Bilirubin Total 0.6 mg/dL (0.2-1.3); Blood Urea Nitrogen 17 mg/dL (9-20); C-Reactive Protein Quant 0.9 mg/dL (<1.0); Calcium 9.9 mg/dL (8.4-10.2); Carbon Dioxide 26 mmol/L (22-32); Chloride 104 mmol/L (98-107); Estimated Glomerular Filt Rate > 60.0 mL/min (>60); Globulin 3.1 g/dL (1.7-4.1); Glucose 114 mg/dL (80-110); HEMOLYSIS < 15 (0-50); Sodium 139 mmol/L (137-145); Total Protein 7.2 g/dL (6.3-8.2)
[2019-01-01 15:33] LABS: Creatine Kinase 35 U/L (55-170)
[2019-01-01 15:34] LABS: Erythrocyte Sedimentation Rate 8 MM/HR (0-15)
[2019-01-02] MEDS: CEFTRIAXONE 2 GM/50 ML FROZ.PIGGY IV (15:19)
[2019-01-02 15:24] VITALS: BP 137/79; PULSE 71; RESP 16; TEMP 36.9; O2SAT 100
[2019-01-03] MEDS: CEFTRIAXONE 2 GM/50 ML FROZ.PIGGY IV (15:09)
[2019-01-03 15:10] VITALS: BP 132/77; PULSE 68; RESP 16; TEMP 36.4; O2SAT 100
[2019-01-04] MEDS: CEFTRIAXONE 2 GM/50 ML FROZ.PIGGY IV (15:14)
[2019-01-04 15:47] VITALS: BP 134/72; PULSE 67; RESP 16; TEMP 36.8; O2SAT 99
[2019-01-05] MEDS: CEFTRIAXONE 2 GM/50 ML FROZ.PIGGY IV (14:03)
[2019-01-05] MEDS: SODIUM CHLORIDE 0.9% FLUSH 10 ML IV (14:04)
[2019-01-05] MEDS: SODIUM CHLORIDE 0.9% 250 ML 21 ML IV (14:04)
[2019-01-05 14:07] VITALS: BP 112/72; PULSE 81; RESP 24; TEMP 36.3; O2SAT 98
--- NOTE | 2019-01-05 14:09 | PC.NURSE ---
Pt arrived via home. Offers no overt complaint, picc accessed per protocal and flushed well. site intact. Pt settled to recliner.
--- NOTE | 2019-01-05 15:12 | PC.NURSE ---
infusion complete. PICC flushed and mesh sleeve applied. Pt ambulated off AC unit.
[2019-01-06] MEDS: CEFTRIAXONE 2 GM/50 ML FROZ.PIGGY IV (13:31)
[2019-01-06 13:37] VITALS: BP 116/69; PULSE 74; RESP 17; TEMP 36.6; O2SAT 94
[2019-01-07] MEDS: CEFTRIAXONE 2 GM/50 ML FROZ.PIGGY IV (13:37)
--- NOTE | 2019-01-07 13:38 | PC.NURSE ---
Pt a&o. offers no overt complaint. Arrived from home via private car.
[2019-01-07 13:41] VITALS: BP 129/66; PULSE 70; RESP 24; TEMP 36.4
[2019-01-08 13:35] VITALS: BP 129/73; PULSE 76; RESP 18; TEMP 36.4; O2SAT 99
[2019-01-08] MEDS: CEFTRIAXONE 2 GM/50 ML FROZ.PIGGY IV (13:37)
[2019-01-08] MEDS: SODIUM CHLORIDE 0.9% 250 ML 21 ML IV (13:37)
[2019-01-08] MEDS: SODIUM CHLORIDE 0.9% FLUSH 10 ML IV (13:38)
[2019-01-09] MEDS: CEFTRIAXONE 2 GM/50 ML FROZ.PIGGY IV (15:07)
[2019-01-09 15:25] VITALS: BP 124/69; PULSE 69; RESP 16; TEMP 37; O2SAT 98
[2019-01-09 15:28] LABS: Add Manual Diff / Slide Review NO; Basophils Absolute Auto 0 /uL (0-100); Basophils Percent Auto 0.6 % (0-2); Eosinophils Absolute Auto 200 /uL (0-450); Eosinophils Percent Auto 3.1 % (2-4); Hematocrit 43.1 % (41-53); Hemoglobin 14.5 g/dL (13.5-17.5); Lymphocytes Absolute Auto 1200 /uL (1100-4500); Mean Corpuscular HGB Conc 33.8 % (30-36); Mean Corpuscular Hemoglobin 30.8 PG (26-34); Mean Corpuscular Volume 91.2 fL (80-100); Monocytes Absolute Auto 600 /uL (0-900); Monocytes Percent Auto 8.8 % (3-14); Neutrophils Absolute Auto 4700 /uL (1500-7000); Neutrophils Percent Auto 69.5 % (50-75); Platelet Count 141 X10^3/uL (150-400); Red Blood Cell Count 4.72 X10^6/uL (4.5-5.9); Red Cell Distribution Width 13.8 % (11.6-14.8); White Blood Cell Count 6.7 X10^3/uL (4.5-11.0)
[2019-01-09 15:58] LABS: Erythrocyte Sedimentation Rate 5 MM/HR (0-15)
[2019-01-09 16:03] LABS: Alanine Aminotransferase 21 IU/L (21-72); Albumin Globulin Ratio 1.3 (1.0-2.8); Alkaline Phosphatase 76 U/L (38-126); Aspartate Aminotransferase 26 IU/L (17-59); Bilirubin Total 0.5 mg/dL (0.2-1.3); Blood Urea Nitrogen 21 mg/dL (9-20); Calcium 9.7 mg/dL (8.4-10.2); Carbon Dioxide 27 mmol/L (22-32); Chloride 103 mmol/L (98-107); Estimated Glomerular Filt Rate > 60.0 mL/min (>60); Glucose 117 mg/dL (80-110); HEMOLYSIS 16 (0-50); Potassium 4.4 mmol/L (3.4-5.1); Sodium 139 mmol/L (137-145)
[2019-01-09 16:04] LABS: C-Reactive Protein Quant < 0.5 mg/dL (<1.0)
--- NOTE | 2019-01-09 16:23 | PC.NURSE ---
pt staying 30min after PICC dc'd
== END ==
PROVIDERS: Hospitalist; Nurse Practitioner Family; PCP Family Medicine; Visit Provider Family Medicine
DX: M86.9 Osteomyelitis, unspecified (principal)
CPT/HCPCS: 36573; 36592; 72158; 80053; 82550; 85025; 85651; 86140; 96365; 96366; 96367; 96523; J0696; J0878

== ENCOUNTER 2019-01-17 01:40 | Emergency (ER) | payer OTHER, SELFPAY ==
[2018-12-08 15:19] VITALS: BMI 22.6
[2019-01-17 01:44] VITALS: BP 176/82; PULSE 58; RESP 16; TEMP 36.4; O2SAT 100; BMI 23.0
--- NOTE | 2019-01-17 02:00 | DI.RAD.S_ITS ---
PROCEDURE: XR CHEST 1V INDICATIONS: chest pain TECHNIQUE: One view of the chest was acquired. COMPARISON: [facility], CR, XR CHEST 2V, 04/19/2018, 11:19. FINDINGS: Surgical changes and devices: None. Lungs and pleura: Lungs are clear. No pleural effusions or pneumothorax. Mediastinum: Cardiomediastinal contours remain stable. Bones and chest wall: No suspicious bony lesions. Overlying soft tissues appear unremarkable. IMPRESSION: Stable examination of the chest without acute cardiopulmonary abnormalities. Dictated by: Tulio Castaneda M.D. on 01/17/2019 at 8:27 Approved by: Tulio Castaneda M.D. on 01/17/2019 at 8:33
[2019-01-17] MEDS: ASPIRIN 81 MG CHEW TAB 324 MG PO (02:05)
[2019-01-17] MEDS: NITROGLYCERIN 0.4 MG SL TAB SL (02:05)
[2019-01-17] MEDS: SODIUM CHLORIDE 0.9% 1,000 ML 150 ML IV (02:05)
--- NOTE | 2019-01-17 02:08 | ED.CHESTPAIN ---
HPI - Chest Pain General Chief Complaint: Chest Pain Stated Complaint: discomfort/pain through middle of chest/burping Time Seen by Provider: 01/17/19 01:42 Source: patient and family () Mode of arrival: ambulatory Limitations: no limitations History of Present Illness HPI narrative: This is a 73-year-old male comes to the emergency department with discomfort in his epigastric, radiating to his abdomen. Patient states it is a burning sort of sensation. He has been burping a lot which did relieve the discomfort somewhat. He states it does not radiate to his back. Patient did feel nauseated and had 1 episode of emesis just before leaving. He states it was a little bit reddish clear. He denies issues with bowel movements, denies any issues with urination. Patient denies any syncope or lightheadedness. He denies any diaphoresis. He states discomfort woke him up from sleep. Patient denies any exacerbating factors. He states that right after he vomited he felt a little bit better. He has not had similar symptoms prior. Patient denies any swelling in his lower extremities. He did recently have osteomyelitis, he was on 6 weeks of IV antibiotics which he recently completed and had his PICC line pulled in the last week. Patient states that he has had nuclear stress test in the past. He states his only medication right naris terazosin. He stopped his aspirin a couple months ago. He has never had any cardiac stents or cardiac catheterizations. States he had right nares surgery in 2016 and hernia repair in the past. Related Data Home Medications Medication Instructions Recorded Confirmed terazosin 5 mg PO Q DAY #0 02/04/17 01/10/19 Previous Rx's Medication Instructions Recorded lorazepam 0.5 mg tablet 0.25 mg PO BEDTIME PRN #20 tab 12/26/18 omeprazole 40 mg PO DAILY #30 cap 01/17/19 Allergies Allergy/AdvReac Type Severity Reaction Status Date / Time No Known Drug Allergies Allergy Verified 01/10/19 10:26 Review of Systems Review of Systems ROS Unobtainable: All systems reviewed & are unremarkable except as noted in HPI and below Constitutional Constitutional: Denies chills, Denies fever(s), Denies lethargy and Denies weakness Cardiovascular Cardiovascular: Reports chest pain, Denies diaphoresis, Denies syncope, Denies rapid heart rate, Denies edema, Denies irregular heart rhythm, Denies lightheadedness, Denies radiating jaw, neck or arm pain, Denies palpitations, Denies dyspnea, Denies dyspnea on exertion and Denies orthopnea Respiratory Respiratory: Denies change in phlegm color, Denies chest congestion, Denies cough, Denies hemoptysis, Denies dyspnea, Denies dyspnea on exertion and Denies wheezing Gastrointestinal Gastrointestinal: Reports abdominal pain, Denies melena, Denies hematochezia, Denies change in bowel habits, Reports dyspepsia, Denies diarrhea, Reports nausea, Reports vomiting and Reports hematemesis (reddish color) Genitourinary Genitourinary: Denies hematuria, Denies difficulty urinating, Denies dysuria, Denies flank pain, Denies urinary frequency, Denies urinary hesitancy, Denies urinary incontinence and Denies urinary urgency Musculoskeletal Musculoskeletal: Reports back pain (improving with antibiotics.) Neurologic Neurologic: Denies syncope and Denies weakness Endocrine Endocrine: Denies palpitations Allergic/Immunologic Allergic/Immunologic: Denies wheezing PFSH Medical History Aortic valve regurgitation (Chronic 02/04/17) Benign prostatic hyperplasia (Chronic) Colon polyps (Resolved) Discitis (Resolved) Diverticulosis (Chronic ~09/2017) Family history of malignant neoplasm of colon in father (02/04/17) Family history of prostate cancer in father (Chronic) LBBB (left bundle branch block) (Chronic) Urethral stricture (Acute ~09/2017) Surgical History History of cataract extraction with lens replacement (Acute 09/23/15) History of cataract surgery (Inactive) History of total right knee replacement (Acute 03/26/15) Family History Brother Cancer Prostate cancer Social History household members: spouse Smoking Status: Never smoker alcohol intake: current Family History Brother Cancer Prostate cancer Social History household members: spouse Smoking Status: Never smoker alcohol intake: current Exam Narrative Exam Narrative: GENERAL: Alert and oriented x three, well-appearing male in mild distress. HEENT: Head normocephalic, atraumatic, EOMI, pupils reactive, face symmetric, moist mucous membranes NECK: Supple, full range of motion CARDIOVASCULAR: Regular rate and rhythm without murmurs, rubs or gallops. None reproducible chest pain. No rash or skin changes. RESPIRATORY: Breath sounds equal bilaterally, no wheezes rales or rhonchi. ABDOMEN: Soft, nontender. Normoactive bowel sounds all 4 quadrants. No guarding or rebound, rigidity, no mass, no pulsatile bruit. : No CVA tenderness EXTREMITIES: Normal range of motion, no clubbing or edema. Neurovascularly intact NEUROLOGICAL: Cranial nerves II through XII grossly intact. Moving all extremities SKIN: Warm, dry, no petechiae, no rashes or lesions. Initial Vital Signs Initial Vital Signs: Vital Signs Temperature 97.5 F L 01/17/19 01:44 Pulse Rate 58 L 01/17/19 01:44 Respiratory Rate 16 01/17/19 01:44 Blood Pressure 176/82 H 01/17/19 01:44 Pulse Oximetry 100 01/17/19 01:44 Scores HEART Score Heart Score history: Moderately Suspicious Heart Score EKG: Non-Specific repolarization disturbance Heart Score Age: > or = 65 years old Heart Score risk factors: 1-2 risk factors Heart Score troponin: < or = to normal limit Heart Score Total: 5 Course Orders Ordered: ED Orders 01/17/19 EKG-12 Lead Stat 01/17/19 01:54 Complete Blood Count AUTO DIFF Stat Comprehensive Metabolic Panel Stat Lipase Stat Partial Thromboplastin Time Stat Prothrombin Time INR Stat Troponin & CK Cardiac Panel Stat 01/17/19 02:00 XR chest 1V Stat 01/17/19 03:50 Troponin & CK Cardiac Panel Stat 01/17/19 03:55 EKG-12 Lead Stat Discontinued Medications Aspirin (Aspirin Chew) 324 mg PO NOW ONE Stop: 01/17/19 02:01 Last Admin: 01/17/19 02:05 Dose: 324 mg Documented by: MARK Al Hydrox/Mg Hydrox/Simethicone 20 ml/ Lidocaine HCl 15 ml 0 ml PO NOW ONE Stop: 01/17/19 02:45 Last Admin: 01/17/19 02:56 Dose: 35 ml Documented by: MARK Sodium Chloride (Normal Saline 0.9%) 1,000 mls @ 150 mls/hr IV CONT TREVOR Last Infusion: 01/17/19 04:46 Dose: 0 mls/hr Documented by: TAMMYARRINGTO Infusion: 01/17/19 02:45 Dose: 150 mls/hr Documented by: TAMMYARRINGKANIKA Infusion: 01/17/19 02:16 Dose: 999 mls/hr Documented by: TAMMYARRINGTO Admin: 01/17/19 02:05 Dose: 150 mls/hr Documented by: [facility] Nitroglycerin (Nitrostat) 0.4 mg SL [id number] PRN PRN Reason: Chest Pain Last Admin: 01/17/19 02:05 Dose: 0.4 mg Documented by: [facility] Ondansetron HCl (Zofran) 4 mg IV NOW ONE Stop: 01/17/19 02:10 Last Admin: 01/17/19 02:10 Dose: 4 mg Documented by: MARK Vital Signs Vital signs: Vital Signs - 8 hr 01/17/19 01:44 01/17/19 02:16 01/17/19 02:36 Temperature 97.5 F L Pulse Rate 58 L 54 L 52 L Respiratory Rate 16 21 14 Blood Pressure 176/82 H Blood Pressure [Right Arm] 88/54 L 165/67 H Pulse Oximetry 100 99 100 01/17/19 04:15 01/17/19 04:55 Temperature Pulse Rate 60 64 Respiratory Rate 17 19 Blood Pressure 126/71 Blood Pressure [Right Arm] 121/69 Pulse Oximetry 98 99 MDM - Chest Pain Lab Data Attestation: I reviewed the patient's lab results. Result diagrams: 01/17/19 01:54 01/17/19 01:54 Labs: Lab Results 01/17/19 01/17/19 01/17/19 Range/Units 01:54 01:54 01:54 WBC 8.7 (4.5-11.0) X10^3/uL RBC 4.99 (4.5-5.9) X10^6/uL Hgb 15.4 (13.5-17.5) g/dL Hct 45.5 (41-53) % MCV 91.1 (80-100) fL MCH 30.9 (26-34) PG MCHC 33.9 (30-36) % RDW 14.4 (11.6-14.8) % Plt Count 181 (150-400) X10^3/uL Neut % (Auto) 60.2 (50-75) % Lymph % (Auto) 28.4 (25-40) % Gilliam % (Auto) 8.1 (3-14) % Eos % (Auto) 2.5 (2-4) % Baso % (Auto) 0.8 (0-2) % Neut # (Auto) 5300 (8336-7102) /uL Lymph # (Auto) 2500 (9933-4026) /uL Gilliam # (Auto) 700 (0-900) /uL Eos # (Auto) 200 (0-450) /uL Baso # (Auto) 100 (0-100) /uL PT 10.3 (10.1-12.7) SECONDS INR 0.9 (0.9-1.3) APTT 31 (26.4-36.2) SECONDS Sodium 140 (137-145) mmol/L Potassium 4.2 (3.4-5.1) mmol/L Chloride 101 (98-107) mmol/L Carbon Dioxide 29 (22-32) mmol/L BUN 27 H (9-20) mg/dL Creatinine 1.00 (0.66-1.25) mg/dL Estimated GFR > 60.0 (>60) mL/min BUN/Creatinine Ratio 27.0 H (6-22) Glucose 132 H (80-110) mg/dL Calcium 9.9 (8.4-10.2) mg/dL Total Bilirubin 0.4 (0.2-1.3) mg/dL AST 29 (17-59) IU/L ALT 16 L (21-72) IU/L Alkaline Phosphatase 101 (38-126) U/L Total Creatine Kinase 44 L (55-170) U/L CK-MB (CK-2) TNP CK-MB (CK-2) Rel Index TNP Troponin I < 0.012 (0.01-0.034) ng/mL Total Protein 7.6 (6.3-8.2) g/dL Albumin 4.3 (3.5-5.0) g/dL Globulin 3.3 (1.7-4.1) g/dL Albumin/Globulin Ratio 1.3 (1.0-2.8) Lipase 194 (23-300) U/L 01/17/19 Range/Units 03:50 WBC (4.5-11.0) X10^3/uL RBC (4.5-5.9) X10^6/uL Hgb (13.5-17.5) g/dL Hct (41-53) % MCV (80-100) fL MCH (26-34) PG MCHC (30-36) % RDW (11.6-14.8) % Plt Count (150-400) X10^3/uL Neut % (Auto) (50-75) % Lymph % (Auto) (25-40) % Gilliam % (Auto) (3-14) % Eos % (Auto) (2-4) % Baso % (Auto) (0-2) % Neut # (Auto) (5528-5527) /uL Lymph # (Auto) (9116-1138) /uL Gilliam # (Auto) (0-900) /uL Eos # (Auto) (0-450) /uL Baso # (Auto) (0-100) /uL PT (10.1-12.7) SECONDS INR (0.9-1.3) APTT (26.4-36.2) SECONDS Sodium (137-145) mmol/L Potassium (3.4-5.1) mmol/L Chloride (98-107) mmol/L Carbon Dioxide (22-32) mmol/L BUN (9-20) mg/dL Creatinine (0.66-1.25) mg/dL Estimated GFR (>60) mL/min BUN/Creatinine Ratio (6-22) Glucose (80-110) mg/dL Calcium (8.4-10.2) mg/dL Total Bilirubin (0.2-1.3) mg/dL AST (17-59) IU/L ALT (21-72) IU/L Alkaline Phosphatase (38-126) U/L Total Creatine Kinase 37 L (55-170) U/L CK-MB (CK-2) TNP CK-MB (CK-2) Rel Index TNP Troponin I < 0.012 (0.01-0.034) ng/mL Total Protein (6.3-8.2) g/dL Albumin (3.5-5.0) g/dL Globulin (1.7-4.1) g/dL Albumin/Globulin Ratio (1.0-2.8) Lipase (23-300) U/L Urine Dip Bedside Urine Glucose Negative Bedside Urine Bilirubin - Negative Bedside Urine Ketone - Negative Urine Specific [place] 1.015 Bedside Urine Occult Blood - Negative Bedside Urine pH 6.0 Bedside Urine Protein +/- 15 Bedside Urine Urobilinogen - Negative Bedside Urine Nitrite - Negative Bedside Urine Leukocytes - Negative Esterase Imaging Data Chest x-ray: My impression: nap noted. Patient has prior which appears similar. ECG Data Attestation: I personally reviewed and interpreted this ECG as follows: Prior ECG tracings: available for review Interpretation: Patient has sinus bradycardia left bundle branch block rate of 57 P are 177 QRS of 146 and QTC of 422. EKG appears similar to 03/18/2015. Negative for Sgarbossa criteria. EKG#2, sinus rhythm with a rate of 63 P are 190 QRS of 137 QTC of 428. Patient has left bundle branch block. Patient EKG of her to earlier EKG. Patient has prior EKG that appears similar to today's as well. MDM Narrative Medical decision making narrative: Patient received aspirin and 1 nitro sublingual which did drop his pressure to the 80s, patient was laid flat given a fluid bolus which improved his symptoms. Patient's symptoms continued, use given a GI cocktail and his symptoms resolved. Patient is feeling much better his blood pressure at this time is 1:20 a.m. systolic. His initial lab work is negative with a EKG that appears similar to prior. Patient does have multiple risk factors although some components of his history are suspicious for reflux or GERD. Patient and I discussed and he defers observation although offered and we did discuss that is a more conservative and safer pathway to follow as patient has risk factors. He prefers to do repeat 2 hour troponin and EKG and if negative follow-up with his primary care the next 24-48 hours, understands risks/benefits. He does have Cardiology that he can follow up. Discharge Plan Departure Patient Disposition: Home Clinical Impression: Atypical chest pain Discharge Date/Time: 01/17/19 04:57 Instructions: DI for Atypical Chest Pain Activity Restrictions/Additional Instructions: Follow up with your primary care or behavioral health technician in the next 24-48 hours. Call for an appointment this morning. Continue home medications as prescribed. I would recommend that you restart your aspirin 81mg daily Take omeprazole 1 tablet daily. Prescription was sent to [facility]. Return to the emergency department for fevers greater than 100.4 F, lightheadedness, passing out, new chest pain, shortness of breath, persistent vomiting, black or bloody stools new or concerning symptoms. Prescriptions: New omeprazole 40 mg capsule,delayed release(DR/EC) 40 mg PO DAILY Qty: 30 RF: 0 No Action terazosin 5 MG capsule 5 mg PO Q DAY Qty: 0 RF: 0 lorazepam 0.5 mg tablet 0.25 mg PO BEDTIME PRN (Reason: sleep) Qty: 20 RF: 0 Referrals: Gurjit Jones MD [Non-Staff] - Cheri Murillo DO [Primary Care Provider] -
[2019-01-17 02:10] LABS: Add Manual Diff / Slide Review NO; Basophils Absolute Auto 100 /uL (0-100); Basophils Percent Auto 0.8 % (0-2); Eosinophils Absolute Auto 200 /uL (0-450); Eosinophils Percent Auto 2.5 % (2-4); Hematocrit 45.5 % (41-53); Hemoglobin 15.4 g/dL (13.5-17.5); Lymphocytes Absolute Auto 2500 /uL (1100-4500); Lymphocytes Percent Auto 28.4 % (25-40); Mean Corpuscular HGB Conc 33.9 % (30-36); Mean Corpuscular Hemoglobin 30.9 PG (26-34); Mean Corpuscular Volume 91.1 fL (80-100); Monocytes Absolute Auto 700 /uL (0-900); Monocytes Percent Auto 8.1 % (3-14); Neutrophils Absolute Auto 5300 /uL (1500-7000); Neutrophils Percent Auto 60.2 % (50-75); Platelet Count 181 X10^3/uL (150-400); Red Blood Cell Count 4.99 X10^6/uL (4.5-5.9); Red Cell Distribution Width 14.4 % (11.6-14.8); White Blood Cell Count 8.7 X10^3/uL (4.5-11.0)
[2019-01-17] MEDS: ONDANSETRON 4 MG/2 ML INJ IV (02:10)
[2019-01-17 02:16] VITALS: BP 88/54; PULSE 54; RESP 21; O2SAT 99
[2019-01-17 02:17] LABS: Alanine Aminotransferase 16 IU/L (21-72); Albumin 4.3 g/dL (3.5-5.0); Albumin Globulin Ratio 1.3 (1.0-2.8); Alkaline Phosphatase 101 U/L (38-126); Aspartate Aminotransferase 29 IU/L (17-59); Bilirubin Total 0.4 mg/dL (0.2-1.3); Blood Urea Nitrogen 27 mg/dL (9-20); Calcium 9.9 mg/dL (8.4-10.2); Carbon Dioxide 29 mmol/L (22-32); Chloride 101 mmol/L (98-107); Creatine Kinase 44 U/L (55-170); Estimated Glomerular Filt Rate > 60.0 mL/min (>60); Globulin 3.3 g/dL (1.7-4.1); Glucose 132 mg/dL (80-110); HEMOLYSIS < 15 (0-50); INR 0.9 (0.9-1.3); Lipase 194 U/L (23-300); Potassium 4.2 mmol/L (3.4-5.1); Prothrombin Time 10.3 SECONDS (10.1-12.7); Sodium 140 mmol/L (137-145); Total Protein 7.6 g/dL (6.3-8.2)
[2019-01-17 02:19] LABS: PTT Partial Thromboplastin Tim 31 SECONDS (26.4-36.2)
[2019-01-17 02:28] LABS: Troponin I < 0.012 ng/mL (0.01-0.034)
[2019-01-17 02:36] VITALS: BP 165/67; PULSE 52; RESP 14; O2SAT 100
[2019-01-17] MEDS: MAG HYDROX/ALUMINUM/SIMETH SUS 20 ML, LIDOCAINE VISCOUS 2% 15 ML PO (02:56)
[2019-01-17 04:06] LABS: Creatine Kinase 37 U/L (55-170)
[2019-01-17 04:15] VITALS: BP 121/69; PULSE 60; RESP 17; O2SAT 98
[2019-01-17 04:19] LABS: Troponin I < 0.012 ng/mL (0.01-0.034)
[2019-01-17 04:55] VITALS: BP 126/71; PULSE 64; RESP 19; O2SAT 99
== END 2019-01-17 04:57 | disposition home or self-care (01) ==
PROVIDERS: Emergency Provider Emergency Medicine; PCP Family Medicine
DX: R07.89 Other chest pain (principal)
CPT/HCPCS: 36415; 36591; 71045; 80053; 81003; 82550; 83690; 84484; 85025; 85610; 85730; 93005; 93010; 96361; 96374; 99284; 99285; J2405

== ENCOUNTER → 2019-03-03 10:20 | Outpatient (CLI) | payer OTHER, SELFPAY ==
[2018-12-08 15:19] VITALS: BMI 22.6
[2019-03-03 11:10] LABS: Add Manual Diff / Slide Review NO; Basophils Absolute Auto 0 /uL (0-100); Basophils Percent Auto 0.4 % (0-2); Eosinophils Absolute Auto 200 /uL (0-450); Eosinophils Percent Auto 3.4 % (2-4); Hematocrit 48.1 % (41-53); Hemoglobin 16.5 g/dL (13.5-17.5); Lymphocytes Absolute Auto 2000 /uL (1100-4500); Lymphocytes Percent Auto 28.3 % (25-40); Mean Corpuscular HGB Conc 34.3 % (30-36); Mean Corpuscular Hemoglobin 31.7 PG (26-34); Mean Corpuscular Volume 92.4 fL (80-100); Monocytes Absolute Auto 500 /uL (0-900); Neutrophils Absolute Auto 4200 /uL (1500-7000); Neutrophils Percent Auto 60.9 % (50-75); Platelet Count 197 X10^3/uL (150-400); Red Blood Cell Count 5.21 X10^6/uL (4.5-5.9); White Blood Cell Count 6.9 X10^3/uL (4.5-11.0)
[2019-03-03 11:27] LABS: Alanine Aminotransferase 29 IU/L (21-72); Albumin 4.5 g/dL (3.5-5.0); Albumin Globulin Ratio 1.5 (1.0-2.8); Alkaline Phosphatase 80 U/L (38-126); Aspartate Aminotransferase 33 IU/L (17-59); Bilirubin Total 0.6 mg/dL (0.2-1.3); Blood Urea Nitrogen 21 mg/dL (9-20); C-Reactive Protein Quant 0.7 mg/dL (<1.0); Calcium 9.9 mg/dL (8.4-10.2); Carbon Dioxide 31 mmol/L (22-32); Chloride 103 mmol/L (98-107); Estimated Glomerular Filt Rate > 60.0 mL/min (>60); Globulin 3.1 g/dL (1.7-4.1); Glucose 107 mg/dL (80-110); HEMOLYSIS 16 (0-50); Potassium 4.4 mmol/L (3.4-5.1); Sodium 141 mmol/L (137-145); Total Protein 7.6 g/dL (6.3-8.2)
[2019-03-03 12:10] LABS: Erythrocyte Sedimentation Rate 2 MM/HR (0-15)
== END ==
PROVIDERS: PCP Family Medicine; Visit Provider Family Medicine
DX: M46.40 Discitis, unspecified, site unspecified (principal); N40.0 Benign prostatic hyperplasia without lower urinary tract symptoms; Z80.42 Family history of malignant neoplasm of prostate
CPT/HCPCS: 36415; 80053; 84153; 85025; 85651; 86140

== ENCOUNTER → 2019-09-08 08:35 | Outpatient (CLI) | payer OTHER, SELFPAY ==
[2018-12-08 15:19] VITALS: BMI 22.6
[2019-09-08 09:05] LABS: Add Manual Diff / Slide Review NO; Basophils Absolute Auto 0 /uL (0-100); Basophils Percent Auto 0.7 % (0-2); Eosinophils Absolute Auto 200 /uL (0-450); Eosinophils Percent Auto 3.6 % (2-4); Hematocrit 46.9 % (41-53); Hemoglobin 15.9 g/dL (13.5-17.5); Lymphocytes Absolute Auto 2100 /uL (1100-4500); Lymphocytes Percent Auto 32.9 % (25-40); Mean Corpuscular HGB Conc 33.8 % (30-36); Mean Corpuscular Hemoglobin 32.4 PG (26-34); Mean Corpuscular Volume 95.7 fL (80-100); Monocytes Absolute Auto 500 /uL (0-900); Monocytes Percent Auto 8.2 % (3-14); Neutrophils Absolute Auto 3400 /uL (1500-7000); Neutrophils Percent Auto 54.6 % (50-75); Platelet Count 162 X10^3/uL (150-400); Red Cell Distribution Width 13.3 % (11.6-14.8); White Blood Cell Count 6.3 X10^3/uL (4.5-11.0)
[2019-09-08 09:17] LABS: Alanine Aminotransferase 26 IU/L (<50); Albumin 4.3 g/dL (3.5-5.0); Albumin Globulin Ratio 1.4 (1.0-2.8); Alkaline Phosphatase 63 U/L (38-126); Aspartate Aminotransferase 36 IU/L (17-59); Bilirubin Total 1.5 mg/dL (0.2-1.3); Blood Urea Nitrogen 32 mg/dL (9-20); Calcium 9.5 mg/dL (8.4-10.2); Carbon Dioxide 26 mmol/L (22-32); Chloride 106 mmol/L (98-107); Cholesterol 190 mg/dL (140-199); Estimated Glomerular Filt Rate > 60.0 mL/min (>60); Glucose 123 mg/dL (80-110); HDL Cholesterol 46 mg/dL (40-60); HEMOLYSIS < 15 (0-50); LDL Cholesterol Calculated 129 mg/dL (<100); Potassium 4.4 mmol/L (3.4-5.1); Sodium 139 mmol/L (137-145); Total Protein 7.3 g/dL (6.3-8.2); Triglycerides 76 mg/dL (35-150)
== END ==
PROVIDERS: PCP Family Medicine; Referring Provider Family Medicine; Visit Provider Family Medicine
DX: Z13.1 Encounter for screening for diabetes mellitus (principal); Z13.6 Encounter for screening for cardiovascular disorders; Z13.83 Encounter for screening for respiratory disorder NEC; Z13.89 Encounter for screening for other disorder; Z87.39 Personal history of other diseases of the musculoskeletal system and connective tissue
CPT/HCPCS: 36415; 80053; 80061; 85025

== ENCOUNTER → 2019-09-18 10:33 | Outpatient (CLI) | payer OTHER, SELFPAY ==
[2018-12-08 15:19] VITALS: BMI 22.6
--- NOTE | 2019-09-18 10:34 | DI.US.S_ITS ---
PROCEDURE: US RENAL COMPLETE INDICATIONS: LEFT FLANK PAIN TECHNIQUE: Real-time scanning was performed of the kidneys and bladder, with image documentation. COMPARISON: None. FINDINGS: Kidneys: Kidneys are normal in size. Right kidney measures 12.9 cm long; left kidney measures 11.1 cm long. Right renal cortical thickness is 1.7 cm; left renal cortical thickness is 1.5 cm. Renal cortical echotexture is normal. No hydronephrosis or nephrolithiasis. No suspicious solid mass lesions. 2.8 cm superior cortical cyst on the right, 1.5 cm maximal dimension peripelvic cysts on the left. Bladder: Pre-void bladder volume is 194 mL. Post-void residual is 128 mL. Pre-void images demonstrate no intraluminal masses or stones. On pre-void images, bilateral ureteral jets are noted with color Doppler interrogation. (Of note, ureteral jets may not be detectable in up to 25% of cases due to insufficient differences in specific gravity between ureteral and bladder urine). Miscellaneous: No free pelvic fluid. The prostate is generous in size, measuring up to 6.8 x 6.7 x 8.4 cm. The patient related that he has a known history of BPH. IMPRESSION: No hydronephrosis or nephrolithiasis or mass lesion found by ultrasound. Sonographic identification of malignancy however is relatively limited in the urinary tract. Followup CT IVP scanning without and with contrast likely is warranted. BPH. Moderate post void residual. Dictated by: Myles Steward M.D. on 09/18/2019 at 11:20 Approved by: Myles Steward M.D. on 09/18/2019 at 11:26
== END ==
PROVIDERS: PCP Family Medicine; Referring Provider Family Medicine; Visit Provider Family Medicine
DX: R10.9 Unspecified abdominal pain (principal); N40.0 Benign prostatic hyperplasia without lower urinary tract symptoms; R31.0 Gross hematuria; N35.919 Unspecified urethral stricture, male, unspecified site
CPT/HCPCS: 76770

== ENCOUNTER → 2019-09-22 10:55 | Outpatient (CLI) | payer OTHER, SELFPAY ==
[2018-12-08 15:19] VITALS: BMI 22.6
[2019-09-22 12:20] LABS: Prostate Specific Antigen 4.01 ng/mL (0.10-4.00)
== END ==
PROVIDERS: PCP Family Medicine; Referring Provider Urology; Visit Provider Urology
DX: R97.20 Elevated prostate specific antigen [PSA] (principal)
CPT/HCPCS: 36415; 84153

== ENCOUNTER → 2020-06-02 11:37 | Outpatient (CLI) | payer OTHER, SELFPAY ==
[2018-12-08 15:19] VITALS: BMI 22.6
[2020-06-02 13:05] LABS: Prostate Specific Antigen Scrn 5.64 ng/mL (0.1-4.0)
== END ==
PROVIDERS: PCP Family Medicine; Referring Provider Family Medicine; Visit Provider Family Medicine
DX: R97.20 Elevated prostate specific antigen [PSA] (principal)
CPT/HCPCS: 36415; G0103

== ENCOUNTER → 2020-08-01 08:51 | Outpatient (CLI) | payer OTHER, SELFPAY ==
[2018-12-08 15:19] VITALS: BMI 22.6
[2020-08-01 08:56] LABS: RBC Urine None Seen (0-5/HPF)
[2020-08-01 09:12] LABS: Hematocrit 47.7 % (41-53); Mean Corpuscular HGB Conc 33.6 % (30-36); Mean Corpuscular Hemoglobin 32.1 PG (26-34); Mean Corpuscular Volume 95.4 fL (80-100); Platelet Count 162 X10^3/uL (150-400); Red Blood Cell Count 4.99 X10^6/uL (4.5-5.9); Red Cell Distribution Width 13.5 % (11.6-14.8); White Blood Cell Count 6.7 X10^3/uL (4.5-11.0)
[2020-08-01 09:52] LABS: Alanine Aminotransferase 22 IU/L (<50); Albumin 4.2 g/dL (3.5-5.0); Albumin Globulin Ratio 1.5 (1.0-2.8); Alkaline Phosphatase 72 U/L (38-126); Aspartate Aminotransferase 33 IU/L (17-59); BUN Creatinine Ratio 31.8 (6-22); Bilirubin Total 0.6 mg/dL (0.2-1.3); Blood Urea Nitrogen 27 mg/dL (9-20); Calcium 9.3 mg/dL (8.4-10.2); Carbon Dioxide 29 mmol/L (22-32); Chloride 104 mmol/L (98-107); Cholesterol 181 mg/dL (140-199); Estimated Glomerular Filt Rate > 60.0 mL/min (>60); Globulin 2.8 g/dL (1.7-4.1); Glucose 125 mg/dL (80-110); HDL Cholesterol 49 mg/dL (40-60); HEMOLYSIS < 15 (0-50); LDL Cholesterol Calculated 119 mg/dL (<100); Sodium 138 mmol/L (137-145); Triglycerides 64 mg/dL (35-150)
[2020-08-01 10:04] LABS: Appearance Urine UA CLEAR; Bilirubin Urine UA NEGATIVE (NEGATIVE); Color Urine UA YELLOW; Glucose Urine UA NEGATIVE (Negative); Ketones Urine UA NEGATIVE (NEGATIVE); Leukocyte Esterase Urine UA NEGATIVE (NEGATIVE); Nitrite Urine UA NEGATIVE (Negative); Occult Blood Urine UA NEGATIVE (Negative); Protein Urine UA NEGATIVE (Negative); Specific Gravity Urine UA 1.025 (1.000-1.035); Urobilinogen Urine UA 0.2 E.U./dL (0.2)
[2020-08-01 10:34] LABS: Bacteria Urine Occasional (0-1); Culture Indicated Urine Cult Not Indicated; Squamous Epithelial Cell Urine 0-1 /HPF (0-5/HPF); WBC Urine 0-1/HPF (0-5/HPF)
[2020-08-01 10:49] LABS: Creatinine Urine Random 124.7 mg/dL
[2020-08-01 10:52] LABS: Microalbumi Creatinin Ratio Ur 12.8 ug/mg CR (<30); Microalbumin Urine Random 1.6 mg/dL (0-1.6)
== END ==
PROVIDERS: PCP Family Medicine; Referring Provider Family Medicine; Visit Provider Family Medicine
DX: I10 Essential (primary) hypertension (principal); N23 Unspecified renal colic
CPT/HCPCS: 36415; 80053; 80061; 81001; 82043; 82570; 85027

== ENCOUNTER → 2020-08-09 09:08 | Outpatient (CLI) | payer OTHER, SELFPAY ==
[2018-12-08 15:19] VITALS: BMI 22.6
[2020-08-09 10:25] LABS: Hemoglobin A1C% w Est Avg Glu 6.2 % (4.0-6.0)
[2020-08-09 10:44] LABS: Glucose 116 mg/dL (80-110)
[2020-08-10 14:09] LABS: Insulin Level Total 9.5 uIU/mL (2.6-24.9)
== END ==
PROVIDERS: PCP Family Medicine; Referring Provider Family Medicine; Visit Provider Family Medicine
DX: R73.9 Hyperglycemia, unspecified (principal); Z83.3 Family history of diabetes mellitus
CPT/HCPCS: 36415; 82947; 83036; 83525

== ENCOUNTER → 2021-01-16 12:29 | Outpatient (CLI) | payer OTHER, SELFPAY ==
[2018-12-08 15:19] VITALS: BMI 22.6
[2021-01-16 14:22] LABS: BUN Creatinine Ratio 27.1 (6-22); Blood Urea Nitrogen 26 mg/dL (9-20); Calcium 9.9 mg/dL (8.4-10.2); Carbon Dioxide 27 mmol/L (22-32); Chloride 103 mmol/L (98-107); Estimated Glomerular Filt Rate > 60.0 mL/min (>60); Glucose 86 mg/dL (80-110); HEMOLYSIS < 15 (0-50); Sodium 137 mmol/L (137-145)
[2021-01-16 14:26] LABS: Potassium 5.6 mmol/L (3.4-5.1)
[2021-01-16 14:59] LABS: Prostate Specific Antigen 5.49 ng/mL (0.10-4.00)
== END ==
PROVIDERS: PCP Family Medicine; Referring Provider Urology; Visit Provider Urology
DX: R73.9 Hyperglycemia, unspecified (principal); R97.20 Elevated prostate specific antigen [PSA]
CPT/HCPCS: 36415; 80048; 83036; 84153

== ENCOUNTER → 2021-02-23 12:17 | Outpatient (CLI) | payer OTHER, SELFPAY ==
[2018-12-08 15:19] VITALS: BMI 22.6
[2021-02-23 13:18] LABS: Add Manual Diff / Slide Review NO; Basophils Absolute Auto 0 /uL (0-100); Basophils Percent Auto 0.1 % (0-2); Eosinophils Absolute Auto 100 /uL (0-450); Eosinophils Percent Auto 1.3 % (2-4); Hematocrit 49.2 % (41-53); Hemoglobin 16.4 g/dL (13.5-17.5); Lymphocytes Absolute Auto 2300 /uL (1100-4500); Lymphocytes Percent Auto 29.8 % (25-40); Mean Corpuscular HGB Conc 33.4 % (30-36); Mean Corpuscular Hemoglobin 32.9 PG (26-34); Mean Corpuscular Volume 98.5 fL (80-100); Monocytes Absolute Auto 500 /uL (0-900); Monocytes Percent Auto 6.5 % (3-14); Neutrophils Absolute Auto 4800 /uL (1500-7000); Neutrophils Percent Auto 62.3 % (50-75); Platelet Count 143 X10^3/uL (150-400); Red Blood Cell Count 4.99 X10^6/uL (4.5-5.9); Red Cell Distribution Width 13.3 % (11.6-14.8); White Blood Cell Count 7.7 X10^3/uL (4.5-11.0)
[2021-02-23 13:34] LABS: Carbon Dioxide 30 mmol/L (22-32); Chloride 103 mmol/L (98-107); HEMOLYSIS < 15 (0-50); Potassium 4.9 mmol/L (3.4-5.1); Sodium 138 mmol/L (137-145)
== END ==
PROVIDERS: PCP Family Medicine; Referring Provider Orthopaedic Surgery; Visit Provider Orthopaedic Surgery
DX: Z01.818 Encounter for other preprocedural examination (principal); Z01.812 Encounter for preprocedural laboratory examination
CPT/HCPCS: 36415; 80051; 85025; 93005; 93010

== ENCOUNTER → 2021-03-11 10:08 | Outpatient (CLI) | payer OTHER, SELFPAY ==
[2018-12-08 15:19] VITALS: BMI 22.6
[2021-03-11 12:21] LABS: COVID19 -Nasal RAPID Negative (Negative)
== END ==
PROVIDERS: PCP Family Medicine; Visit Provider Nurse Practitioner Family
DX: Z20.822 Contact with and (suspected) exposure to COVID-19 (principal)
CPT/HCPCS: 87635; C9803

== ENCOUNTER 2021-03-12 06:05 | Day surgery (SDC) | payer OTHER, SELFPAY ==
[2018-12-08 15:19] VITALS: BMI 22.6
[2021-03-05 09:56] VITALS: BMI 23.7
[2021-03-12] VITALS (13 sets, daily range): BP systolic 107–168; BP diastolic 55–85; PULSE 56–74; RESP 10–17; TEMP 35.9–36.3; O2SAT 93–99; BMI 23.0
--- NOTE | 2021-03-12 06:00 | DI.RAD.S_ITS ---
PROCEDURE: XR KNEE LT 1TO2V INDICATIONS: postop prosthesis placement TECHNIQUE: 2 view(s) of the knee acquired. COMPARISON: [facility], , KNEE 1-2 VIEWS RIGHT, 03/26/2015, 12:54. FINDINGS: Bones: Patient is status post knee joint arthroplasty. Hardware components are in expected positions. Visualized bony structures are intact. Soft tissues: Overlying postoperative changes are noted. IMPRESSION: No significant abnormality. Dictated by: John Greenwood M.D. on 03/12/2021 at 10:20 Approved by: John Greenwood M.D. on 03/12/2021 at 10:21
[2021-03-12] MEDS: LACTATED RINGERS 1,000 ML 42 ML IV ×2 (06:49→09:01)
[2021-03-12] MEDS: ACETAMINOPHEN 325 MG TABLET 975 MG PO (06:53)
[2021-03-12] MEDS: PREGABALIN 75 MG CAPSULE PO (06:54)
[2021-03-12] MEDS: CELECOXIB 200 MG CAPSULE PO (06:54)
--- NOTE | 2021-03-12 07:48 | PM.PREOP ---
Pre-operative Note COVID-19 COVID-19 status: Negative Interval Note History & Physical reviewed/Exam performed by Physician: Yes Changes to H&P: No
[2021-03-12] MEDS: CEFAZOLIN 1 GM VIAL 2 GM IV (08:03)
[2021-03-12] MEDS: LIDOCAINE 1% W/EPI 20 ML INJ (08:07)
[2021-03-12] MEDS: TRANEXAMIC ACID 1,000 MG VIAL 1000 MG INJ (08:12)
--- NOTE | 2021-03-12 08:26 | SUR.OPER ---
Supine on padded OR bed. Pillow under head, arms secured on padded armboards <90 degree abduction. Safety belt across torso. Non-operative leg secured with tape over blanket over lower leg. Operative leg secured in Jaspreet positioner. Foam padded brace at thigh of operative leg.
[2021-03-12] MEDS: BUPIVACAINE 0.25% (PF) 60 ML, EPINEPHrine 0.3 MG INJ (08:35)
[2021-03-12] MEDS: BUPIVACAINE LIPOSOME 266 MG/20 ML VIAL INJ (08:36)
[2021-03-12] MEDS: BUPIVACAINE 0.25% W/ EPI (PF) 20 ML, TRANEXAMIC ACID 1,000 MG, SODIUM CHLORIDE 0.9% 10 ML INJ (08:39)
[2021-03-12] MEDS: SODIUM CHLORIDE IRRIG SOLUTION 250 ML, POVIDONE-IODINE SPONGE STICKS 1 APPLIC IRR (08:45)
--- NOTE | 2021-03-12 09:38 | PM.OP.1 ---
Operative Date/Time/Diagnoses Date of procedure: 03/12/21 Time of procedure: 09:38 Pre-op diagnosis: Left knee osteoarthritis Post-op diagnosis: same Procedure & Clinicians Procedure: Left total knee arthroplasty Same procedure as scheduled: Yes Indications: The patient presents today for total knee arthroplasty after failure of conservative treatment. The nature of the procedure including the risks and benefits, alternatives, postoperative course and expected outcome were discussed and all questions answered. Consent was obtained. Operative site confirmed and marked. Surgeon: Mike Figueroa Chamfering Machine Operator: Yehuda Jason Anesthesia Type: General and Local Operative Notes Closure Type: primary Specimen(s): none sent Prosthetic devices, grafts, tissues, transplants, or devices: Art Persona TKA 11 CR femoral component, F stemmed tibial component, 11 medially constrained polyethylene tray and 38 mm all poly patella. Applied: implant(s) Estimated Blood Loss (mL): 10 Blood products transfused: none Tourniquet time (min): 71 Procedure in detail: The patient was taken to the operative suite and placed under anesthesia. The patient was given prophylactic antibiotics prior to surgery. The patient was also given tranexamic acid, 1 g, just prior to surgery for postoperative hemostasis. The lateral knee was prepped and the joint injected with 20 mL of 1% Lidocaine with epinephrine. The knee was then prepped and draped in usual sterile fashion. The leg was exsanguinated with an Esmarch dressing and the tourniquet raised to 250 torr. A 15 cm anterior incision was made. Next a medial trivector arthrotomy was made. The extensor mechanism was marked to ensure accurate repair. Initial exposing dissection was carried out medially and laterally. The knee was then flexed and the intramedullary femoral guide jamar placed. The distal femoral cut was made in 4? of valgus at the +1 position. The femoral size was measured and the appropriate cutting block was then placed and the anterior, posterior and chamfer cuts made. The intramedullary tibial alignment jamar was then placed. The guide was set to remove approximately 10 mm from the less affected lateral side. This gave a very minimal cut on the medial side. The proximal tibial cut was then made with an oscillating saw. All meniscus and bony debris was then removed. Posterior femoral osteophytes removed with a curved osteotome. Flexion extension gaps were checked. There is still mild tightness medially. This was balanced with percutaneous release of the MCL with an 18 gauge needle. The soft tissues were then injected with a combination of 20 mL of half percent Marcaine with epinephrine and 20 mL of Exparel. The trial components were then placed. The knee was then extended and the patellar thickness was measured and a cut made removing approximately 9 mm of bone. The patella was then sized and drilled. Some excess lateral bone was excised and the patellofemoral ligament released. The knee went into full extension and flexion beyond 130?. There was excellent medial-lateral balance throughout motion with just slight increased laxity laterally as compared to medially Patellar tracking was excellent. The trial components were removed and the knee was cleansed with Pulsavac irrigation and dried. The final components were cemented with high viscosity vacuum mixed bone cement with antibiotics. The joint was filled with a dilute Betadine solution. The knee was held in extension and the patellar clamped until the cement was adequately cured. The knee was then irrigated. The extensor mechanism was closed with 5 interrupted #1 Vicryl sutures and a running Quill suture at approximately 90 degrees of flexion. The joint was then injected with a combination of 1 g of tranexamic acid and 20 mL of quarter percent Marcaine with epinephrine. The subcutaneous tissue was closed with 2 0 Vicryl. The skin was closed with absorbable subcuticular sutures and surgical adhesive. An Aquacel dressing and Blayne wrap were then applied. The patient tolerated the procedure well and was returned to recovery room in good condition. Complications: none Post-operative Condition: stable Disposition: same day surgery Plan for aftercare: [facility] Protocol.
--- NOTE | 2021-03-12 10:06 | SUR.PHASEI ---
Pt now rousable and responds to name, nods appropriately. unable to remain awake to follow other commands. Will continue to monitor.
[2021-03-12] MEDS: fentaNYL 100 MCG/2 ML INJ IV (10:16)
[2021-03-12] MEDS: HYDROMORPHONE 0.5 MG INJ 0.2 MG IV ×2 (11:01→11:58)
[2021-03-12] MEDS: LACTATED RINGERS 1,000 ML 100 ML IV (11:04)
[2021-03-12] MEDS: OXYCODONE IR 10 MG TABLET PO (11:21)
[2021-03-12] MEDS: HYDROMORPHONE 2 MG TABLET PO ×2 (14:08→17:00)
--- NOTE | 2021-03-12 15:11 | PT.IIE ---
Current Diagnoses Unilateral primary osteoarthritis, left knee (03/12/21) Surgery Performed Operation Date: 03/12/21 07:45 Actual Procedures p Total Knee Arthroplasty(Left) - Mike Figueroa MD Medical History (Last Updated 03/05/21 @ 10:48 by Debbie Maldonado RN) Aortic valve regurgitation (02/04/17) Benign prostatic hyperplasia Colon polyps Discitis Diverticulosis (~09/2017) Family history of malignant neoplasm of colon in father (02/04/17) Family history of prostate cancer in father Hyperlipidemia LBBB (left bundle branch block) Osteoarthritis of left knee Solar purpura Thoracic aortic aneurysm Urethral stricture (~09/2017) Physical Therapy Inpatient Evaluation/Re-Eval M1 PT/OT-IP Prior Functional Status Start: 03/12/21 17:34 Freq: NEEDED Status: Active Protocol: Document 03/12/21 15:11 AB (Rec: 03/12/21 17:44 AB [id number]) Medical Review Prior Functional Status Medical History Reviewed Yes Communication able to make needs known Mobility and Gait pt tated that he is independent with all mobilities and ambulation without AD Social History Household Members spouse Living Arrangements House Number of Floors (Floors) Two Floors Number of Stairs To Enter/Railing? pt stays on main level of the house 2 platform steps to enter the house Home Environment Standard Height Toilet,Walk in Shower Home Equipment Front Wheel Walker,Straight Cane Employment Status Retired M2 PT-IP Current Condition Start: 03/12/21 17:34 Freq: NEEDED Status: Active Protocol: Document 03/12/21 15:11 AB (Rec: 03/12/21 17:44 AB [email or web address]) Physical Therapy Current Condition Current Condition Evaluation Date 03/12/21 Treatment Diagnosis s/p L TKA; difficulty in walking Onset Date 03/12/21 M3 PT-IP Subjective Start: 03/12/21 17:34 Freq: NEEDED Status: Active Protocol: Document 03/12/21 15:11 AB (Rec: 03/12/21 17:44 AB [email or web address]) Subjective Physical Therapy Visit Type Type Initial Evaluation Visit Start Time 15:11 Visit Stop Time 15:56 Total Visit Minutes 44 Number of COMMUNITY SERVICE COORDINATOR Visits 0 Physical Therapy Visit Comments Patient Comments wants to go home Therapy Pain Assessment Pain When Pain Assessed At Rest Pain Present Pain Present Pain Reported Location Left Knee Intensity 2 Scale Used Numeric (0 - 10) Pain Management Techniques Apply Cold,Elevation, Modification of Treatment,Re- positioning,Timing of Activity with Medications M4 PT-IP Mobility and Gait Start: 03/12/21 17:34 Freq: NEEDED Status: Active Protocol: Document 03/12/21 15:11 AB (Rec: 03/12/21 17:44 AB [id number]) PT-Bed Mobility Assessment Supine to Sit Supine to Sit Standby Assistance Sit to Supine Sit to Supine Standby Assistance PT-Transfer Assessment Sit to and From Stand Sit to and from Stand Standby Assistance,Contact Guard Assistance,1 Person Assistance,Use of Upper Extremities Equipment Transfer Assistive Device Gait Belt,Front Wheeled Walker Orthotic/Prosthetic Devices or Brace: No Comments Mobility Comments pt completed supine to sit SBA . completed sit to stand CGA and ambulated in room ~ 20 ft and agreed to ambulate in the hallway using FWW ~ 125 ft initially CGA and cues for L quads activation but after a 50 ft was able to ambulate SBA . pt educated on stair climbing and completed up/down platform step using FWW SBA to CGA. completed 2 sets. pt ambulated back to the room ~ 125 ft SBA. completed sit to supine SBA with cues. positioned in bed. ice pack provided. call light and table placed within reach. Gait Assessment Gait Gait Assistance Required: Standby Assistance,Contact Guard Assist Distance (Feet) 125 Able to Maintain Weight Bearing Status Yes During Gait Assistive Devices Assistive Device Gait Belt,Front Wheeled Walker Orthotic/Prosthetic Devices or Brace: No Gait Deviations General Gait Pattern Decreased Stride Length, Decreased Feet Clearance Factors Limiting Gait Function Factors Limiting Gait Function Decreased Activity Tolerance, Decreased Strength,Limited Range of Motion,Pain,Poor Balance,Poor Safety Awareness Comments Gait Comments pls refer to mobility section for details Stair Climbing Assessment Evaluation Level of Assist On Stairs 1 Person Assistance Devices Stair Climbing Assistive Devices Front Wheel Walker Technique/Endurance Stair Climbing Direction Ascend and Descend Stair Climbing Technique Step to Step Number of Steps Climbed 1 Query Text: Stair Climbing Set # Repetitions (reps) 2 PT-Balance Assessment Sitting Balance and Reactions Static Sitting Balance Ability Normal Dynamic Sitting Balance Ability Good Standing Balance and Reactions Static Standing Balance Ability Good Dynamic Standing Balance Ability Fair Device Used FWW M5 PT-IP Objective Assessments Start: 03/12/21 17:34 Freq: NEEDED Status: Active Protocol: Document 03/12/21 15:11 AB (Rec: 03/12/21 17:44 AB [email or web address]) Orientation Orientation/Cognition Level of Alertness Alert Orientation Name,Place,Situation Safety Awareness Understands Safety Issues Memory Description No Deficits Noted Gross Range of Motion Lower Extremity ROM Impairments L knee flexion : 105 deg L knee extension : ~ 10 deg less to 0 Strength Lower Extremity Strength Assessment Left Impaired Hip 4-/5 Knee 3+/5 Coordination Assessment Gross Coordination Gross Coordination WNL Sensation Assessment Sensation Gross Sensation WNL Muscle Tone Muscle Tone WNL Yes M6 PT-IP Treatment Start: 03/12/21 17:34 Freq: NEEDED Status: Active Protocol: Document 03/12/21 15:11 AB (Rec: 03/12/21 17:44 AB [id number]) Physical Therapy Treatment Education Education Provided Precautions,Weight Bearing Status,Post-Op Packet,Safety M7 PT-IP Assessment and Plan Start: 03/12/21 17:34 Freq: NEEDED Status: Active Protocol: Document 03/12/21 15:11 AB (Rec: 03/12/21 17:44 AB [email or web address]) PT Summary Assessment and Plan Potential Rehabilitation Potential Good Status of Condition at Evaluation Stable Summary Impairments Pain,ROM,Strength,Balance, Coordination,Sensation,Tone, Cognition,Bed Mobility, Transfers,Gait,Activity Tolerance Assessment Summary pt requiring SBA to CGA with mobility using FWW. pt plans to go home and his spouse will be able to assist him. pt stated that his son will also assist as needed. pt may go home when medically stable. Goals Bed Mobility Goal Independent Transfer Goal Independent,Front Wheeled Walker Gait Goal Independent,Front Wheel Walker Gait Distance 250 Other Goals up/ down 2 platform steps mod I using FWW Days to Meet Goals 3 Frequency of Treatment Frequency Of Treatment Twice a Day Treatment Plan Physical Therapy Treatment Plan Bed Mobility Training,Transfer Training,Gait Training, Therapeutic Exercise,Balance Retraining,Post Op Education, Discharge Planning,Hot or Cold Pack,Neuromuscular Re-ed, Coordination Retraining,Manual Therapy Weight Bearing Status Weight Bearing Status Weight Bear as Tolerated Allowed Weight Bearing Amount (enter % LLE WBAT or #) (%) Recommendations To Nursing Amount of Assist Needed 1 Person Assist Discharge Recommendations PT Discharge Recommendations Home with Assistance, Outpatient PT Transportation Needs at Discharge Private Vehicle
[2021-03-12] MEDS: ACETAMINOPHEN 325 MG TABLET 650 MG PO (17:00)
== END 2021-03-12 17:07 | disposition home or self-care (01) ==
LOC: OR 06:08 → AC 06:08
PROVIDERS: PCP Family Medicine; Referring Provider Orthopaedic Surgery; Visit Provider Orthopaedic Surgery
PROC: 0SRD0JZ Replacement of Left Knee Joint with Synthetic Substitute, Open Approach (ICD-10-PCS; CPT 27447; principal; 2021-03-12 07:45)
DX: M17.12 Unilateral primary osteoarthritis, left knee (principal); M25.762 Osteophyte, left knee
CPT/HCPCS: 27447; 73560; 97116; 97161; C1776; C9290; J0171; J0690; J1170; J2250; J2405; J2704; J3010

== ENCOUNTER → 2021-03-17 12:00 | Outpatient (CLI) | payer OTHER, SELFPAY ==
[2021-03-12 11:08] VITALS: BMI 23.0
--- NOTE | 2021-03-17 12:01 | DI.US.S_ITS ---
PROCEDURE: US PERIPH VENOUS LOW EXTREM LT INDICATIONS: LEFT LEG PAIN AND SWELLING TECHNIQUE: Real-time imaging, as well as color and pulse Doppler interrogation, were performed of the lower extremity deep veins from the inguinal ligament to the popliteal fossa. COMPARISON: None. FINDINGS: The common femoral, femoral and popliteal veins are normally compressible, and free of intraluminal thrombus. Color and pulse Doppler demonstrate normal phasic intraluminal flow. There is normal augmentation response to distal compression maneuver. This study is limited by generalized soft tissue swelling. IMPRESSION: Negative for deep venous thrombosis. Dictated by: Oscar Harrington M.D. on 03/17/2021 at 12:24 Approved by: Oscar Harrington M.D. on 03/17/2021 at 12:24
== END ==
PROVIDERS: PCP Family Medicine; Referring Provider Orthopaedic Surgery; Visit Provider Orthopaedic Surgery
DX: M79.89 Other specified soft tissue disorders (principal); M79.605 Pain in left leg
CPT/HCPCS: 93971

== ENCOUNTER → 2021-09-28 10:04 | Outpatient (CLI) | payer OTHER, SELFPAY ==
[2021-03-12 11:08] VITALS: BMI 23.0
[2021-09-28 11:39] LABS: Hematocrit 45.6 % (41-53); Hemoglobin 15.8 g/dL (13.5-17.5); Mean Corpuscular HGB Conc 34.7 % (30-36); Mean Corpuscular Hemoglobin 32.7 PG (26-34); Mean Corpuscular Volume 94.3 fL (80-100); Platelet Count 156 X10^3/uL (150-400); Red Blood Cell Count 4.83 X10^6/uL (4.5-5.9)
[2021-09-28 12:14] LABS: Alanine Aminotransferase 23 IU/L (<50); Albumin 4.3 g/dL (3.5-5.0); Albumin Globulin Ratio 1.5 (1.0-2.8); Alkaline Phosphatase 77 U/L (38-126); Aspartate Aminotransferase 30 IU/L (17-59); BUN Creatinine Ratio 26.1 (6-22); Bilirubin Total 0.7 mg/dL (0.2-1.3); Blood Urea Nitrogen 24 mg/dL (9-20); Calcium 9.4 mg/dL (8.4-10.2); Carbon Dioxide 29 mmol/L (22-32); Chloride 104 mmol/L (98-107); Cholesterol 191 mg/dL (140-199); Estimated Glomerular Filt Rate > 60 mL/min (>60); Globulin 2.9 g/dL (1.7-4.1); Glucose 119 mg/dL (80-110); HDL Cholesterol 46 mg/dL (40-60); HEMOLYSIS < 15 (0-50); LDL Cholesterol Calculated 95 mg/dL (<100); Potassium 4.6 mmol/L (3.4-5.1); Sodium 138 mmol/L (137-145); Total Protein 7.2 g/dL (6.3-8.2); Triglycerides 248 mg/dL (35-150)
[2021-09-28 12:43] LABS: TSH w/ Reflex to FT4 1.33 uIU/mL (0.47-4.68)
== END ==
PROVIDERS: PCP Internal Medicine; Referring Provider Internal Medicine; Visit Provider Internal Medicine
DX: E78.2 Mixed hyperlipidemia (principal); I35.1 Nonrheumatic aortic (valve) insufficiency; I44.7 Left bundle-branch block, unspecified; N40.0 Benign prostatic hyperplasia without lower urinary tract symptoms
CPT/HCPCS: 36415; 80053; 80061; 84443; 85027

== ENCOUNTER → 2021-09-28 10:27 | Outpatient (CLI) | payer OTHER, SELFPAY ==
[2021-03-12 11:08] VITALS: BMI 23.0
--- NOTE | 2021-09-28 | DI.US.S_ITS ---
PROCEDURE: US RENAL COMPLETE INDICATIONS: LEFT FLANK PAIN TECHNIQUE: Real-time scanning was performed of the kidneys and bladder, with image documentation. COMPARISON: None. FINDINGS: Kidneys: Kidneys are normal in size. Right kidney measures 10.2 cm long; left kidney measures 11.5 cm long. Right renal cortical thickness is 1.6 cm; left renal cortical thickness is 1.7 cm. Renal cortical echotexture is normal. No hydronephrosis or nephrolithiasis. No suspicious solid mass lesions. 3.0 x 3.2 x 3.3 centimeter right renal cyst. 1.3 x 1.0 x 1.0 centimeter left renal cyst. Bladder: Pre-void bladder volume is 195 mL. Post-void residual is 147 mL. Pre-void images demonstrate no intraluminal masses or stones. Prevoid images demonstrate urinary bladder wall trabeculation. On pre-void images, both right and left ureteral jets are noted with color Doppler interrogation. (Of note, ureteral jets may not be detectable in up to 25% of cases due to insufficient differences in specific gravity between ureteral and bladder urine). Prostate is enlarged. Miscellaneous: No free pelvic fluid. IMPRESSION: 1. No renal stone or hydronephrosis. 2. Bilateral renal cysts. 3. Significant residual postvoid urinary bladder volume. 4. Trabeculated urinary bladder wall suggesting chronic cystitis. 5. Prostate gland enlargement. Dictated by: Dominga Samuel MD, PhD on 09/28/2021 at 11:47 Approved by: Dominga Samuel MD, PhD on 09/28/2021 at 11:50
== END ==
PROVIDERS: PCP Internal Medicine; Referring Provider Urology; Visit Provider Urology
DX: N28.1 Cyst of kidney, acquired (principal); N40.0 Benign prostatic hyperplasia without lower urinary tract symptoms; N32.89 Other specified disorders of bladder; R10.9 Unspecified abdominal pain
CPT/HCPCS: 76770

== ENCOUNTER → 2021-12-26 10:05 | Outpatient (CLI) | payer OTHER, SELFPAY ==
[2021-03-12 11:08] VITALS: BMI 23.0
[2021-12-26 12:18] LABS: C-Reactive Protein Quant < 0.5 mg/dL (<1.0)
[2021-12-26 12:19] LABS: Erythrocyte Sedimentation Rate 1 MM/HR (0-15)
== END ==
PROVIDERS: PCP Internal Medicine; Referring Provider Orthopaedic Surgery; Visit Provider Orthopaedic Surgery
DX: M25.562 Pain in left knee (principal)
CPT/HCPCS: 36415; 85651; 86140

== ENCOUNTER → 2022-05-20 10:44 | Outpatient (CLI) | payer OTHER, SELFPAY ==
[2021-03-12 11:08] VITALS: BMI 23.0
--- NOTE | 2022-05-20 10:45 | DI.RAD.S_ITS ---
PROCEDURE: XR LUMBAR SPINE 2-3V INDICATIONS: back pain TECHNIQUE: 3 views of the lumbar spine were acquired. COMPARISON: None. FINDINGS: Bones: 5 [id number] vertebrae are present. There is normal bony alignment. No vertebral body compression fractures. No suspicious bony lesions. Disc space narrowing noted particularly at L5-S1. Sclerotic facet joints noted the lower lumbar spine. Images are limited by body habitus Soft tissues: Overlying bowel gas pattern is normal. No suspicious soft tissue calcifications. IMPRESSION: Degenerative disc disease and arthropathy in the lower lumbar spine Approved by: Tyler Del Angel M.D. on 05/20/2022 at 16:52
[2022-05-20 12:18] LABS: Add Manual Diff / Slide Review NO; Basophils Absolute Auto 0 /uL (0-100); Basophils Percent Auto 0.1 % (0-2); Eosinophils Absolute Auto 100 /uL (0-450); Eosinophils Percent Auto 1.8 % (2-4); Hematocrit 47.3 % (41-53); Hemoglobin 16.4 g/dL (13.5-17.5); Lymphocytes Absolute Auto 2100 /uL (1100-4500); Lymphocytes Percent Auto 30.1 % (25-40); Mean Corpuscular HGB Conc 34.6 % (30-36); Mean Corpuscular Hemoglobin 33.1 PG (26-34); Mean Corpuscular Volume 95.6 fL (80-100); Monocytes Absolute Auto 500 /uL (0-900); Monocytes Percent Auto 7.1 % (3-14); Neutrophils Absolute Auto 4300 /uL (1500-7000); Neutrophils Percent Auto 60.9 % (50-75); Platelet Count 150 X10^3/uL (150-400); Red Blood Cell Count 4.95 X10^6/uL (4.5-5.9); Red Cell Distribution Width 13.1 % (11.6-14.8); White Blood Cell Count 7.1 X10^3/uL (4.5-11.0)
[2022-05-20 12:42] LABS: Erythrocyte Sedimentation Rate 2 MM/HR (0-15)
[2022-05-20 12:57] LABS: C-Reactive Protein Quant < 0.5 mg/dL (<1.0)
== END ==
PROVIDERS: PCP Internal Medicine; Referring Provider Internal Medicine; Visit Provider Internal Medicine
DX: M54.9 Dorsalgia, unspecified (principal); M86.9 Osteomyelitis, unspecified
CPT/HCPCS: 36415; 72100; 85025; 85651; 86140

== ENCOUNTER → 2022-11-03 10:18 | Outpatient (CLI) | payer OTHER, SELFPAY ==
[2021-03-12 11:08] VITALS: BMI 23.0
[2022-11-03 11:50] LABS: Prostate Specific Antigen 4.67 ng/mL (0.10-4.00)
== END ==
PROVIDERS: PCP Family Medicine; Referring Provider Urology; Visit Provider Urology
DX: R97.20 Elevated prostate specific antigen [PSA] (principal)
CPT/HCPCS: 36415; 84153

== ENCOUNTER → 2023-10-28 14:13 | Outpatient (CLI) | payer OTHER, SELFPAY ==
[2021-03-12 11:08] VITALS: BMI 23.0
[2023-10-28 15:41] LABS: Prostate Specific Antigen 6.18 ng/mL (0.10-4.00)
== END ==
LOC: LAB 14:15
PROVIDERS: PCP Family Medicine; Referring Provider Urology; Visit Provider Urology
DX: R97.20 Elevated prostate specific antigen [PSA] (principal)
CPT/HCPCS: 36415; 84153

== ENCOUNTER → 2023-11-23 17:06 | Outpatient (CLI) | payer OTHER, SELFPAY ==
[2021-03-12 11:08] VITALS: BMI 23.0
[2023-11-23 18:06] LABS: Influenza A - CEPHEID Flu A NEGATIVE (NEGATIVE); Influenza B - CEPHEID Flu B NEGATIVE (NEGATIVE); Respiratory Syncytial Virus Negative (Negative)
[2023-11-23 18:11] LABS: COVID-19 CEPHEID 4-PLEX PCR Negative (Negative)
== END ==
PROVIDERS: PCP Family Medicine; Visit Provider Student in an Organized Health Care Education/Training Program
DX: R05.1 Acute cough (principal)
CPT/HCPCS: 0241U

== ENCOUNTER 2023-11-23 17:31 | Emergency (ER) | payer OTHER, SELFPAY ==
[2021-03-12 11:08] VITALS: BMI 23.0
[2023-11-23] VITALS (19 sets, daily range): BP systolic 128–195; BP diastolic 67–129; PULSE 65–105; RESP 15–39; TEMP 36.7–36.8; O2SAT 96–99; BMI 23.0
--- NOTE | 2023-11-23 17:46 | DI.RAD.S_ITS ---
PROCEDURE: XR CHEST 1V INDICATIONS: Possible stroke TECHNIQUE: One view of the chest was acquired. COMPARISON: [facility], CR, XR CHEST 1V, 01/17/2019, 2:04. [facility], CR, XR CHEST 2V, 04/19/2018, 11:19. FINDINGS: Surgical changes and devices: None. Lungs and pleura: No dense consolidation or pleural effusion Mediastinum: Normal heart size. Unchanged prominent cardiomediastinal contours and tortuous aorta Bones and chest wall: Degenerative changes IMPRESSION: No acute radiographic abnormality. Unchanged prominent mediastinal contours, possibly tortuous or ectatic vessels. Dictated by: Jared Canela M.D. on 11/23/2023 at 18:31 Approved by: Jared Canela M.D. on 11/23/2023 at 18:32
--- NOTE | 2023-11-23 17:46 | EKG_ITS ---
[facility] [address] [place] [address] Test Date: 2023-11-23 Pat Name: Eleuterio Avery Department: [facility] Room: Gender: Male Supervisor Diagnostic: JOSE JUAN : 1945 Requested By: Order Number: [id number] Reading MD: Ga Kirby MD Measurements Intervals [place] Rate: 66 P: 22 VA: 174 QRS: -41 QRSD: 140 T: 107 QT: 420 QTc: 440 Interpretive Statements Normal sinus rhythm Left axis deviation Left bundle branch block NO SIGNIFICANT CHANGE FROM PRIOR TRACING Electronically Signed On 11-24-2023 7:59:23 PDT by Ga Kirby MD
--- NOTE | 2023-11-23 17:46 | DI.CT.S_ITS ---
PROCEDURE: CT HEAD/BRAIN WO CON INDICATIONS: Positive BE-FAST, Stroke symptoms TECHNIQUE: Noncontrast 4.5 mm thick angled axial sections acquired from the foramen magnum to the vertex, with coronal and sagittal reformats. For radiation dose reduction, the following was used: automated exposure control, adjustment of mA and/or kV according to patient size. COMPARISON: None. FINDINGS: Image quality: Diagnostic CSF spaces: Bilateral sulcal effacement. No high-grade effacement of the basal cisterns Volume: Vascular calcifications. Periventricular white matter disease is commonly seen with chronic microangiopathy. Volume loss is present. These findings are [id number] Mildly prominent temporal horns. Brain: Bilateral convex to the subdural hematomas measuring 1.5 cm in thickness on the right and 1.6 cm on the left Craniofacial structures: No significant paranasal sinus opacity. IMPRESSION: Bilateral convexity subdural hematomas. There is [id number] overall mass-effect, with bilateral sulcal effacement. No high-grade effacement of the basal cisterns. Mildly prominent temporal horns. Consider continued follow-up. Called to ED. Dictated by: Jared Canela M.D. on 11/23/2023 at 18:08 Approved by: Jared Canela M.D. on 11/23/2023 at 18:12
--- NOTE | 2023-11-23 17:58 | PC.NURSE ---
patient has slight difference in her left face when he is asked to puff up his cheeks. He doesn't say that sensation is any different from left to right face. He also stated the reason he came in was because hes been having fatigue for the last 3 days and hasn't been able to do much at the gym. He stated that his right leg has been weak and was also feeling uncoordinated.
[2023-11-23 18:00] LABS: Add Manual Diff / Slide Review NO; Basophils Absolute Auto 100 /uL (0-100); Basophils Percent Auto 0.6 % (0-2); Eosinophils Absolute Auto 100 /uL (0-450); Eosinophils Percent Auto 1.4 % (2-4); Hematocrit 43.8 % (41-53); Lymphocytes Absolute Auto 1900 /uL (1100-4500); Lymphocytes Percent Auto 24.2 % (25-40); Mean Corpuscular HGB Conc 34.2 % (30-36); Mean Corpuscular Hemoglobin 33.7 PG (26-34); Mean Corpuscular Volume 98.6 fL (80-100); Monocytes Absolute Auto 600 /uL (0-900); Monocytes Percent Auto 7.8 % (3-14); Neutrophils Absolute Auto 5300 /uL (1500-7000); Platelet Count 176 X10^3/uL (150-400); Red Blood Cell Count 4.45 X10^6/uL (4.5-5.9); Red Cell Distribution Width 12.9 % (11.6-14.8); White Blood Cell Count 8.1 X10^3/uL (4.5-11.0)
[2023-11-23 18:05] LABS: Prothrombin Time 11.4 SECONDS (9.4-12.5)
--- NOTE | 2023-11-23 18:07 | ED_ITS ---
HPI - Neuro Symptoms/Deficit General Chief Complaint: Neuro Symptoms/Deficit Stated Complaint: sent by [facility], to check for stroke Time Seen by Provider: 11/23/23 17:51 Source: patient Mode of arrival: Ambulatory History of Present Illness HPI Narrative: 78-year-old male with history of anxiety presents ambulatory from our walk-in clinic for 3 days of right lower extremity weakness and numbness as well as facial droop. Patient works out daily on the bicycle and noticed that he had difficulty lifting his right leg over the bicycle when finished with his exercise. He went to the walk-in clinic concerned that he may have COVID-19, but he was referred to the ER for evaluation of possible underlying stroke. Patient denies use of blood thinners, aspirin, or Plavix. Denies trauma or other recent injury. He states that for the last 3 days he was had a low-grade headache and he has been taking occasional ibuprofen for the pain. On Anticoagulants: No Related Data Previous Rx's Medication Instructions Recorded lorazepam 0.5 mg tablet 0.5 mg PO QD-BID PRN anxiety #60 06/23/22 tabs Allergies Allergy/AdvReac Type Severity Reaction Status Date / Time No Known Drug Allergies Allergy Verified 11/23/23 17:08 Review of Systems Hematologic/Lymphatic On Anticoagulants: No Patient History Medical History DJD (degenerative joint disease), lumbar Situational anxiety History of colon polyps Mixed hyperlipidemia Thoracic aortic aneurysm Discitis LBBB (left bundle branch block) Diverticulosis (~09/2017) Family history of prostate cancer in father Urethral stricture (~09/2017) Aortic valve regurgitation (02/04/17) Family history of malignant neoplasm of colon in father (02/04/17) Benign prostatic hyperplasia Surgical History History of cataract extraction with lens replacement (09/23/15) 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) Family History Brother Cancer Prostate cancer Social History household members: spouse Smoking Status: Never smoker alcohol intake: current Smoking Status: Never smoker alcohol intake frequency: 0-2 drinks per day Substance Use Type: does not use Exam Initial Vital Signs Initial Vital Signs: Vital Signs Pulse Rate 69 11/23/23 17:39 Pulse Oximetry 96 11/23/23 17:39 Const: Awake, alert, no acute distress, nontoxic appearing Cardiac: regular rate, regular rhythm RESP: unlabored, clear bilaterally, no wheezing GI: Soft, nontender, nondistended, no rebound, no guarding Skin: Warm, Dry, intact, no rashes Neuro: AO x3, trace left upper lip droop, no aphasia or dysarthria, no upper extremity drift bilaterally. Right lower extremity drift, does not touch bed Course Orders Ordered: ED Orders 11/23/23 17:46 CT head/brain wo con Stat XR chest 1V Stat EKG-12 Lead Stat 11/23/23 17:50 Complete Blood Count AUTO DIFF Stat Comprehensive Metabolic Panel Stat Magnesium Stat PTT Partial Thromboplastin Delta Stat Prothrombin Time INR Stat Troponin & CK Cardiac Panel Stat 11/23/23 18:34 UA Complete [Urinalysis and Microscopic] Stat Urine Drug Screen, Rapid Stat Discontinued Medications Nicardipine HCl 25 mg/ Sodium (Chloride) 250 mls @ 50 mls/hr IV TITRATE TREVOR; Protocol Last Titration: 11/23/23 20:29 Dose: 2.5 mg/hr, 25 mls/hr Documented By: Admin: 11/23/23 18:28 Dose: 5 mg/hr, 50 mls/hr Documented By: EULALIO Lorazepam (Lorazepam 0.5 Mg/0.25 Ml Syringe) 1 mg IV NOW ONE Stop: 11/23/23 19:26 Midazolam HCl (Midazolam 2 Mg/2 Ml Vial) 1 mg IV NOW ONE Stop: 11/23/23 19:30 Last Admin: 11/23/23 19:33 Dose: 1 mg Documented By: Ondansetron HCl (Ondansetron 4 Mg/2 Ml Inj) 4 mg IV NOW PRN PRN Reason: Nausea And Vomiting Ondansetron HCl (Ondansetron 4 Mg Odt) 4 mg SL NOW PRN PRN Reason: Nausea And Vomiting Vital Signs Vital signs: Vital Signs - 8 hr 11/23/23 17:39 11/23/23 17:41 11/23/23 18:07 Temperature 98.0 F Pulse Rate 69 69 65 Respiratory Rate 18 Blood Pressure 181/82 H Pulse Oximetry 96 98 98 Oxygen Delivery Method Room Air 11/23/23 18:08 11/23/23 18:08 11/23/23 18:18 Temperature Pulse Rate 66 69 Respiratory Rate Blood Pressure 168/129 H Pulse Oximetry 98 97 Oxygen Delivery Method 11/23/23 18:18 11/23/23 18:30 11/23/23 18:34 Temperature Pulse Rate 68 68 Respiratory Rate 17 21 Blood Pressure 185/86 H Pulse Oximetry 99 98 Oxygen Delivery Method 11/23/23 18:34 11/23/23 18:35 11/23/23 18:35 Temperature Pulse Rate 70 Respiratory Rate 32 H Blood Pressure 195/89 H 184/83 H Pulse Oximetry 98 Oxygen Delivery Method 11/23/23 18:40 11/23/23 18:40 11/23/23 18:45 Temperature Pulse Rate 71 75 Respiratory Rate 28 H 26 H Blood Pressure 193/90 H Pulse Oximetry 98 99 Oxygen Delivery Method 11/23/23 18:45 11/23/23 18:55 11/23/23 18:55 Temperature Pulse Rate 85 Respiratory Rate 27 H Blood Pressure 188/89 H 154/77 H Pulse Oximetry 98 Oxygen Delivery Method 11/23/23 19:00 11/23/23 19:00 11/23/23 19:15 Temperature Pulse Rate 84 78 Respiratory Rate 35 H 22 Blood Pressure 146/74 H 141/79 H Pulse Oximetry 99 99 Oxygen Delivery Method 11/23/23 19:15 11/23/23 19:30 11/23/23 19:30 Temperature Pulse Rate 84 Respiratory Rate 39 H Blood Pressure 141/67 H 151/77 H Pulse Oximetry 99 Oxygen Delivery Method 11/23/23 19:45 11/23/23 19:45 11/23/23 20:00 Temperature Pulse Rate 78 105 H Respiratory Rate 28 H 27 H Blood Pressure 142/68 H Pulse Oximetry 99 Oxygen Delivery Method 11/23/23 20:06 11/23/23 20:06 11/23/23 20:15 Temperature Pulse Rate 86 Respiratory Rate 29 H Blood Pressure 141/79 H 128/70 Pulse Oximetry 96 Oxygen Delivery Method 11/23/23 20:15 11/23/23 20:36 Temperature 98.2 F Pulse Rate 85 85 Respiratory Rate 24 15 Blood Pressure 128/84 Pulse Oximetry 99 98 Oxygen Delivery Method Room Air MDM - Neuro Symptoms/Deficit Differential Diagnosis Differential diagnosis: Likely subarachnoid hemorrhage, cerebrovascular accident and transient cerebral ischemia Lab Data 11/23/23 17:50 11/23/23 17:50 Labs: Lab Results 11/23/23 11/23/23 11/23/23 Range/Units 17:50 18:34 18:34 WBC 8.1 (4.5-11.0) X10^3/uL RBC 4.45 L (4.5-5.9) X10^6/uL Hgb 15.0 (13.5-17.5) g/dL Hct 43.8 (41-53) % MCV 98.6 (80-100) fL MCH 33.7 (26-34) PG MCHC 34.2 (30-36) % RDW 12.9 (11.6-14.8) % Plt Count 176 (150-400) X10^3/uL Neut % (Auto) 66.0 (50-75) % Lymph % (Auto) 24.2 L (25-40) % [place] % (Auto) 7.8 (3-14) % Eos % (Auto) 1.4 L (2-4) % Baso % (Auto) 0.6 (0-2) % Neut # (Auto) 5300 (8819-9935) /uL Lymph # (Auto) 1900 (1979-9992) /uL [place] # (Auto) 600 (0-900) /uL Eos # (Auto) 100 (0-450) /uL Baso # (Auto) 100 (0-100) /uL PT 11.4 (9.4-12.5) SECONDS INR 1.0 (0.9-1.3) APTT 34 (25.1-36.5) SECONDS Sodium 135 L (137-145) mmol/L Potassium 4.4 (3.4-5.1) mmol/L Chloride 103 (98-107) mmol/L Carbon Dioxide 28 (22-32) mmol/L BUN 23 H (9-20) mg/dL Creatinine 0.84 (0.66-1.25) mg/dL Estimated GFR > 60 (>60) mL/min BUN/Creatinine Ratio 27.4 H (6-22) Glucose 112 H (80-110) mg/dL Calcium 9.3 (8.4-10.2) mg/dL Magnesium 2.2 (1.6-2.3) mg/dL Total Bilirubin 0.6 (0.2-1.3) mg/dL AST 54 (17-59) IU/L ALT 22 (<50) IU/L Alkaline Phosphatase 84 (38-126) U/L Total Creatine Kinase 57 (55-170) U/L Troponin I < 0.012 (0.01-0.034) ng/mL Total Protein 7.2 (6.3-8.2) g/dL Albumin 4.2 (3.5-5.0) g/dL Globulin 3.0 (1.7-4.1) g/dL Albumin/Globulin Ratio 1.4 (1.0-2.8) Urine Color Yellow Urine Appearance Clear Urine pH 6.0 Normal (4.5-8.0) Ur Specific [place] 1.010 (1.000-1.035) Urine Protein Negative (Negative) Urine Glucose (UA) Negative (Negative) g/dL Urine Ketones Negative (NEGATIVE) Urine Occult Blood Negative (Negative) Urine Nitrate Negative (Negative) Urine Bilirubin Negative (NEGATIVE) Urine Urobilinogen 0.2 (0.2) E.U./dL Ur Leukocyte Esterase Negative (NEGATIVE) Urine RBC None seen (0-5/HPF) Urine WBC 0-1/hpf (0-5/HPF) Ur Squamous Epith Cells 0-1 /hpf (0-5/HPF) Urine Bacteria Occasional (0-1) (None) Ur Culture Indicated? Cult not indicated Vol Urine Centrifuged 10ml (spun) U Opiates 300ng/mL cut Negative (Negative) Ur Oxycodone Screen Negative (Negative) Urine Methadone Screen Negative (Negative) Ur Barbiturates Screen Negative (Negative) U Tricyclic Antidepress Negative (Negative) Ur Phencyclidine Scrn Negative (Negative) Ur Amphetamines Screen Negative (Negative) U Methamphetamines Scrn Negative (Negative) Ur MDMA Scrn (Ecstasy) Negative (Negative) U Benzodiazepines Scrn Positive H (Negative) Urine Cocaine Screen Negative (Negative) U Marijuana (THC) Screen Negative (Negative) Urine Specific Emm[place] Normal (Normal) Ur Creatinine Normal (Normal) Imaging Data CT scan - head: Radiologist's Impression: PROCEDURE: CT HEAD/BRAIN WO CON INDICATIONS: Positive BE-FAST, Stroke symptoms TECHNIQUE: Noncontrast 4.5 mm thick angled axial sections acquired from the foramen magnum to the vertex, with coronal and sagittal reformats. For radiation dose reduction, the following was used: automated exposure control, adjustment of mA and/or kV according to patient size. COMPARISON: None. FINDINGS: Image quality: Diagnostic CSF spaces: Bilateral sulcal effacement. No high-grade effacement of the basal cisterns Volume: Vascular calcifications. Periventricular white matter disease is commonly seen with chronic microangiopathy. Volume loss is present. These findings are [id number] Mildly prominent temporal horns. Brain: Bilateral convex to the subdural hematomas measuring 1.5 cm in thickness on the right and 1.6 cm on the left Craniofacial structures: No significant paranasal sinus opacity. IMPRESSION: Bilateral convexity subdural hematomas. There is [id number] overall mass- effect, with bilateral sulcal effacement. No high-grade effacement of the basal cisterns. Mildly prominent temporal horns. Consider continued follow-up. Called to ED. Dictated by: Jared Canela M.D. on 11/23/2023 at 18:08 Approved by: Jared Canela M.D. on 11/23/2023 at 18:[address] [facility] Narrative Medical decision making narrative: Three days of headache and right lower extremity weakness. Due to onset of symptoms greater than 24 hours ago patient not made a stroke alert on arrival. He does have trace left upper lip droop as well as right lower extremity weakness. CT scan shows bilateral subdural hematoma, left greater than right. Discussed with Dr. Canela of Radiology who stated that there was sulcal effacement without herniation. Patient was not take any medications that would need to be reversed. Since he has been in the emergency department his blood pressure has been elevated at 180 systolic or greater. Started on nicardipine drip for blood pressure control. Patient and family members updated of CT results at bedside. Patient reports extreme reluctance to be transferred to different facility stating that he feels overall fine, as well as some stress from previous experience with brain bleeds. A little over 1 year ago patient lost his spouse to a brain bleed, she was at [facility] for [address] imaging discussed with Dr. Eason, who stated that due to the amount of swelling present on the CT scan strongly advised transfer and surgery for decompression. Neurosurgical recommendations discussed with the patient and family members at bedside. Patient states that he was very anxious, but otherwise willing to be transferred for treatment. Airlift called for transport. Critical Care Time Critical Care Time Critical Care Time: Yes Total Critical Care Time: 49 Attestation: Bilateral subdural hematoma requiring airlift transport to higher level of care. Review of imaging, discussion with neurosurgical services, goals of care discussion with the patient and family at bedside, control of blood pressure with IV medications Discharge Plan Departure Patient Disposition: [facility] Clinical Impression: Bilateral subdural hematomas Prescriptions: No Action lorazepam 0.5 mg tablet 0.5 mg PO QD-BID PRN (Reason: anxiety) Qty: 60 1RF Referrals: Dk Vasques MD [Primary Care Provider] -
[2023-11-23 18:08] LABS: Alanine Aminotransferase 22 IU/L (<50); Albumin 4.2 g/dL (3.5-5.0); Albumin Globulin Ratio 1.4 (1.0-2.8); Alkaline Phosphatase 84 U/L (38-126); Aspartate Aminotransferase 54 IU/L (17-59); BUN Creatinine Ratio 27.4 (6-22); Bilirubin Total 0.6 mg/dL (0.2-1.3); Blood Urea Nitrogen 23 mg/dL (9-20); Calcium 9.3 mg/dL (8.4-10.2); Carbon Dioxide 28 mmol/L (22-32); Chloride 103 mmol/L (98-107); Creatine Kinase 57 U/L (55-170); Estimated Glomerular Filt Rate > 60 mL/min (>60); Glucose 112 mg/dL (80-110); HEMOLYSIS < 15 (0-50); Magnesium 2.2 mg/dL (1.6-2.3); PTT Partial Thromboplastin Tim 34 SECONDS (25.1-36.5); Potassium 4.4 mmol/L (3.4-5.1); Sodium 135 mmol/L (137-145); Total Protein 7.2 g/dL (6.3-8.2)
[2023-11-23 18:21] LABS: Troponin I < 0.012 ng/mL (0.01-0.034)
[2023-11-23] MEDS: NICARDIPINE 25 MG in SODIUM CHLORIDE 0.9% 240 ML 50 MG IV (18:28)
[2023-11-23 18:54] LABS: UR Morphine/Opiate cutoff 300 Negative (Negative); Ur Creatinine Normal (Normal); Ur Specific Gravity Normal (Normal); Urine Amphetamines Negative (Negative); Urine Barbiturates Negative (Negative); Urine Benzodiazepines Positive (Negative); Urine Cocaine Negative (Negative); Urine MDMA Negative (Negative); Urine Methadone Negative (Negative); Urine Methamphetamines Negative (Negative); Urine Oxycodone Negative (Negative); Urine Phencyclidine Negative (Negative); Urine Tetrahydrocannabinol Negative (Negative); Urine Tricyclic Antidepressant Negative (Negative); Urine pH Normal (Normal)
[2023-11-23] MEDS: MIDAZOLAM 2 MG/2 ML VIAL 1 MG IV (19:33)
[2023-11-23 19:49] LABS: Appearance Urine UA CLEAR; Bilirubin Urine UA NEGATIVE (NEGATIVE); Color Urine UA YELLOW; Glucose Urine UA NEGATIVE (Negative); Ketones Urine UA NEGATIVE (NEGATIVE); Leukocyte Esterase Urine UA NEGATIVE (NEGATIVE); Nitrite Urine UA NEGATIVE (Negative); Occult Blood Urine UA NEGATIVE (Negative); Protein Urine UA NEGATIVE (Negative); Urobilinogen Urine UA 0.2 E.U./dL (0.2)
[2023-11-23 19:56] LABS: Bacteria Urine Occasional (0-1); Culture Indicated Urine Cult Not Indicated; RBC Urine None Seen (0-5/HPF); Squamous Epithelial Cell Urine 0-1 /HPF (0-5/HPF); Urine Volume 10mL (spun); WBC Urine 0-1/HPF (0-5/HPF)
--- NOTE | 2023-11-23 20:29 | PC.NURSE ---
BP is coming down after dosing of Valium. 128/84. Decreased Nicardipine drip to 2.5 mg/hr. will continue to monitor.
== END 2023-11-23 20:45 | disposition short-term general hospital (02) ==
PROVIDERS: Emergency Medicine; Emergency Provider Emergency Medicine; PCP Family Medicine
DX: I62.00 Nontraumatic subdural hemorrhage, unspecified (principal); R29.810 Facial weakness; G83.11 Monoplegia of lower limb affecting right dominant side; R29.701 NIHSS score 1
CPT/HCPCS: 0241U; 36415; 70450; 71045; 80053; 80305; 81001; 82550; 83735; 84484; 85025; 85610; 85730; 93005; 96365; 96366; 96375; 99284; 99291; J2250

== ENCOUNTER → 2023-12-22 10:27 | Outpatient (CLI) | payer OTHER, SELFPAY ==
[2021-03-12 11:08] VITALS: BMI 23.0
--- NOTE | 2023-12-22 10:30 | DI.CT.S_ITS ---
PROCEDURE: CT HEAD/BRAIN WO CON INDICATIONS: ACUTE ON CHRONIC INTRACRANIAL SUBDURAL HEMATOMA TECHNIQUE: Noncontrast 4.5 mm thick angled axial sections acquired from the foramen magnum to the vertex, with coronal and sagittal reformats. For radiation dose reduction, the following was used: automated exposure control, adjustment of mA and/or kV according to patient size. COMPARISON: None. FINDINGS: Image quality: Diagnostic. CSF spaces: Basal cisterns are patent. The ventricles are symmetric in size and shape. Brain: The previously seen bilateral subdural hematomas have overall improved compared to the prior examination. On the left, there is seen a 1 cm hematoma anteriorly, previously measuring 1.6 cm in thickness. On the right, there is a 1.2 hematoma, previously measuring 1.5 cm. Mild hyperdense components can be seen within both of these subdural hematomas. There is a mild degree of mass effect seen, with 2 mm midline shift. No intracranial masses. There is cerebral volume loss for age, with resultant ventricular and sulcal prominence. There are periventricular and deep white matter chronic small vessel ischemic changes. There is intracranial internal carotid artery atherosclerosis. Skull and face: Bilateral sheldon holes can be seen on both sides. Calvarium and visualized facial bones appear intact, without suspicious lesions. Sinuses: Visualized sinuses and mastoids are clear. IMPRESSION: Improving bilateral subdural hematomas. Mild hyperdense components can be seen, which may reflect small superimposed acute bleeds versus dependent settling. Interval bilateral sheldon holes. Dictated by: Oscar Harrington M.D. on 12/22/2023 at 10:34 Approved by: Oscar Harrington M.D. on 12/22/2023 at 10:37
== END ==
LOC: CT 10:29
PROVIDERS: PCP Family Medicine; Referring Provider Family Medicine; Visit Provider Family Medicine
DX: I62.01 Nontraumatic acute subdural hemorrhage (principal); I62.03 Nontraumatic chronic subdural hemorrhage
CPT/HCPCS: 70450

== ENCOUNTER → 2024-01-10 13:16 | Outpatient (CLI) | payer OTHER, SELFPAY ==
[2021-03-12 11:08] VITALS: BMI 23.0
[2024-01-10 15:26] LABS: Prostate Specific Antigen 5.57 ng/mL (0.10-4.00)
== END ==
PROVIDERS: PCP Family Medicine; Referring Provider Urology; Visit Provider Urology
DX: R97.20 Elevated prostate specific antigen [PSA] (principal)
CPT/HCPCS: 36415; 84153

== ENCOUNTER → 2024-01-30 09:52 | Outpatient (CLI) | payer OTHER, SELFPAY ==
[2021-03-12 11:08] VITALS: BMI 23.0
--- NOTE | 2024-01-30 09:53 | DI.CT.S_ITS ---
PROCEDURE: CT HEAD/BRAIN WO CON INDICATIONS: ACUTE ON CHRONIC INTRACRANIAL SUBDURAL HEMATOMA TECHNIQUE: Noncontrast 4.5 mm thick angled axial sections acquired from the foramen magnum to the vertex, with coronal and sagittal reformats. For radiation dose reduction, the following was used: automated exposure control, adjustment of mA and/or kV according to patient size. COMPARISON: [facility], CT, CT HEAD/BRAIN WO CON, 12/22/2023, 10:35. [facility], CT, CT HEAD/BRAIN WO CON, 11/23/2023, 17:49. FINDINGS: Image quality: Diagnostic. CSF spaces: Basal cisterns are patent. The ventricles are symmetric in size and shape. Brain: Within the right frontal region, there is a low-density subdural seen, as on series 2, image 18 measuring 7 mm in thickness (previously measuring 16 mm). No residual left-sided subdural hemorrhage can be seen. No intracranial masses. There is cerebral volume loss for age, with resultant ventricular and sulcal prominence. There are periventricular and deep white matter chronic small vessel ischemic changes. There is intracranial internal carotid artery atherosclerosis. Skull and face: Bilateral sheldon holes are seen. Calvarium and visualized facial bones appear intact, without suspicious lesions. Sinuses: Visualized sinuses and mastoids are clear. IMPRESSION: Low-density right-sided subdural hematoma seen, clearly resolving since the prior. Now left-sided subdural hematoma is not seen. Dictated by: Oscar Harrington M.D. on 01/30/2024 at 10:55 Approved by: Oscar Harrington M.D. on 01/30/2024 at 10:58
== END ==
LOC: CT 09:52
PROVIDERS: PCP Family Medicine; Referring Provider Family Medicine; Visit Provider Family Medicine
DX: I62.01 Nontraumatic acute subdural hemorrhage (principal); I62.03 Nontraumatic chronic subdural hemorrhage; I65.29 Occlusion and stenosis of unspecified carotid artery
CPT/HCPCS: 70450

== ENCOUNTER → 2024-02-29 11:18 | Outpatient (CLI) | payer OTHER, SELFPAY ==
[2021-03-12 11:08] VITALS: BMI 23.0
[2024-02-29 13:01] LABS: Estimated Glomerular Filt Rate > 60 mL/min (>60)
== END ==
PROVIDERS: Radiology Diagnostic Radiology; PCP Family Medicine; Referring Provider Family Medicine; Visit Provider Family Medicine
DX: F41.9 Anxiety disorder, unspecified (principal)
CPT/HCPCS: 36415; 82565

== ENCOUNTER → 2024-03-01 09:23 | Outpatient (CLI) | payer OTHER, SELFPAY ==
[2021-03-12 11:08] VITALS: BMI 23.0
--- NOTE | 2024-03-01 09:24 | DI.CT.S_ITS ---
PROCEDURE: CT ABDOMEN PELVIS W CON INDICATIONS: LYMPHADENOPATHY TECHNIQUE: After the administration of intravenous contrast, axial sections acquired from the lung bases to the pubic symphysis. Coronal and sagittal reformats were performed. For radiation dose reduction, the following was used: automated exposure control, adjustment of mA and/or kV according to patient size. Patient experienced an episode of nausea after the IV contrast injection. Unable to repeat imaging of the liver dome. COMPARISON: [facility], CT, IVP (ABD & PEL WWO CONTRAST), 07/08/2017, 9:49. FINDINGS: Image quality: Diagnostic. Lower Chest: No significant findings. ABDOMEN: Liver: No solid mass. Most superiorly liver is outside the field of view. Gallbladder: No radiopaque gallstones or wall thickening. Biliary ducts: No biliary dilation. Pancreas: No ductal dilation. Spleen: Size is within normal limits. Measures 11.7 cm. Adrenal Glands: No adrenal nodules. Kidneys and Ureters: No hydronephrosis. No solid mass. No complex renal cystic lesion which requires follow up. Benign cyst at the superior pole of the right kidney measuring 3.7 cm. Stomach and Bowel: Diverticulosis. No diverticulitis. Normal appendix. No small bowel obstruction. Portions of the small bowel appears thickened. Stomach is not distended. Suspected thickening at the duodenum. Peritoneum: No abnormal intraperitoneal fluid. No free air. Ventral Wall: No significant ventral hernia. Abdominal Nodes: No retroperitoneal or mesenteric adenopathy by size criteria. Vessels: Aorta and inferior vena cava are normal in size. Extensive calcified plaque. PELVIS: Pelvic Organs: Marked prostatomegaly. Median lobe hypertrophy. Bladder: Bladder diverticuli. No intraluminal stone. Small calcification near the anterior bladder. Pelvic Nodes: No enlarged lymph nodes. Miscellaneous: No significant inguinal hernias are seen. Bones: No aggressive osseous abnormality. IMPRESSION: 1. No adenopathy seen. No splenomegaly. 2. Duodenum and small bowel appears thickened. This suggest an enteritis. 3. Marked prostatomegaly. Bladder diverticuli. This suggests bladder outlet obstruction. Dictated by: Ranulfo Fowler M.D. on 03/01/2024 at 13:47 Approved by: Ranulfo Fowler M.D. on 03/01/2024 at 14:02
== END ==
PROVIDERS: PCP Family Medicine; Referring Provider Family Medicine; Visit Provider Family Medicine
DX: R59.1 Generalized enlarged lymph nodes (principal); N28.1 Cyst of kidney, acquired; K57.90 Diverticulosis of intestine, part unspecified, without perforation or abscess without bleeding; N40.0 Benign prostatic hyperplasia without lower urinary tract symptoms; N32.3 Diverticulum of bladder
CPT/HCPCS: 74177; Q9967

== ENCOUNTER → 2024-04-03 09:39 | Outpatient (CLI) | payer OTHER, SELFPAY ==
[2021-03-12 11:08] VITALS: BMI 23.0
--- NOTE | 2024-04-03 09:41 | DI.CT.S_ITS ---
PROCEDURE: CT HEAD/BRAIN WO CON INDICATIONS: SUBDURAL HEMATOMA TECHNIQUE: Noncontrast 4.5 mm thick angled axial sections acquired from the foramen magnum to the vertex, with coronal and sagittal reformats. For radiation dose reduction, the following was used: automated exposure control, adjustment of mA and/or kV according to patient size. COMPARISON: [facility], CT, CT HEAD/BRAIN WO CON, 12/22/2023, 10:35. [facility], CT, CT HEAD/BRAIN WO CON, 11/23/2023, 17:49. [facility], CT, CT HEAD/BRAIN WO CON, 01/30/2024, 10:23. FINDINGS: Image quality: Diagnostic. CSF spaces: Basal cisterns are patent. No extra-axial fluid collections. The ventricles are symmetric in size and shape. Brain: No intracranial bleeds or masses. The previously seen right-sided subdural hemorrhage has resolved. There is cerebral volume loss for age, with resultant ventricular and sulcal prominence. There are periventricular and deep white matter chronic small vessel ischemic changes. There is intracranial internal carotid artery atherosclerosis. Skull and face: Bilateral sheldon holes are seen. Calvarium and visualized facial bones appear intact, without suspicious lesions. Sinuses: Visualized sinuses and mastoids are clear. IMPRESSION: Resolution of the previously seen right-sided subdural hemorrhage. Bilateral sheldon holes present. Dictated by: Oscar Harrington M.D. on 04/03/2024 at 9:09 Approved by: Oscar Harrington M.D. on 04/03/2024 at 9:11
== END ==
LOC: CT 09:40
PROVIDERS: PCP Family Medicine; Referring Provider Family Medicine; Visit Provider Family Medicine
DX: I62.01 Nontraumatic acute subdural hemorrhage (principal)
CPT/HCPCS: 70450

== ENCOUNTER → 2024-04-13 15:30 | Outpatient (CLI) | payer OTHER, SELFPAY ==
[2024-04-11 11:13] VITALS: BMI 23.0
== END ==
PROVIDERS: PCP Family Medicine; Visit Provider Urology
DX: R39.9 Unspecified symptoms and signs involving the genitourinary system (principal)
CPT/HCPCS: 87086

== ENCOUNTER → 2024-04-13 16:01 | Outpatient (CLI) | payer OTHER, SELFPAY ==
[2024-04-11 11:13] VITALS: BMI 23.0
[2024-04-13 20:18] LABS: Urine N gonorrhoeae NOT DETECTED
[2024-04-13 20:33] LABS: Urine Chlamydia NOT DETECTED
== END ==
PROVIDERS: PCP Family Medicine; Referring Provider Urology; Visit Provider Urology
DX: N40.1 Benign prostatic hyperplasia with lower urinary tract symptoms (principal); R97.20 Elevated prostate specific antigen [PSA]; R30.0 Dysuria; R39.9 Unspecified symptoms and signs involving the genitourinary system
CPT/HCPCS: 51798; 81002; 87086; 87491; 87591; 99214

== ENCOUNTER → 2024-07-17 11:01 | Outpatient (CLI) | payer OTHER, SELFPAY ==
[2024-04-11 11:13] VITALS: BMI 23.0
== END ==
PROVIDERS: PCP Family Medicine; Visit Provider Urology
DX: N40.1 Benign prostatic hyperplasia with lower urinary tract symptoms (principal); R30.0 Dysuria
CPT/HCPCS: 87086

== ENCOUNTER → 2024-10-08 13:27 | Outpatient (CLI) | payer OTHER, SELFPAY ==
[2024-04-11 11:13] VITALS: BMI 23.0
[2024-10-08 14:44] LABS: Prostate Specific Antigen 9.65 ng/mL (0.10-4.00)
== END ==
PROVIDERS: PCP Family Medicine; Referring Provider Urology; Visit Provider Urology
DX: R97.20 Elevated prostate specific antigen [PSA] (principal)
CPT/HCPCS: 84153

== ENCOUNTER → 2024-12-05 16:41 | Outpatient (CLI) | payer OTHER, SELFPAY ==
[2024-04-11 11:13] VITALS: BMI 23.0
[2024-12-05 17:54] LABS: Prostate Specific Antigen 5.98 ng/mL (0.10-4.00)
== END ==
PROVIDERS: PCP Family Medicine; Referring Provider Urology; Visit Provider Urology
DX: R97.20 Elevated prostate specific antigen [PSA] (principal)
CPT/HCPCS: 36415; 84153

== ENCOUNTER → 2024-12-17 12:26 | Outpatient (CLI) | payer OTHER, SELFPAY ==
[2024-04-11 11:13] VITALS: BMI 23.0
--- NOTE | 2024-12-17 12:29 | DI.RAD.S_ITS ---
PROCEDURE: XR FINGER LT MIN 2V INDICATIONS: Left thumb swelling/discomfort TECHNIQUE: AP hand, 2 views of the left 1st finger (s) acquired. COMPARISON: None. FINDINGS: Bones: There are no osseous abnormalities Joints: Mild radiocarpal, severe 1st CMC, and severe 1st through 5th DIP degenerative change noted. There is mild degenerative change remaining interphalangeal joints Soft tissues: Mild diffuse soft tissue swelling IMPRESSION: Multilevel degeneration Dictated by: Ga Moody M.D. on 12/18/2024 at 10:00 Approved by: Ga Moody M.D. on 12/18/2024 at 10:02
== END ==
PROVIDERS: PCP Family Medicine; Referring Provider Nurse Practitioner Family; Visit Provider Nurse Practitioner Family
DX: M79.89 Other specified soft tissue disorders (principal); M18.12 Unilateral primary osteoarthritis of first carpometacarpal joint, left hand; M19.042 Primary osteoarthritis, left hand
CPT/HCPCS: 73140

== ENCOUNTER → 2025-04-10 15:33 | Outpatient (CLI) | payer OTHER, SELFPAY ==
[2024-04-11 11:13] VITALS: BMI 23.0
[2025-04-10 17:49] LABS: Prostate Specific Antigen 7.02 ng/mL (0.10-4.00)
== END ==
PROVIDERS: PCP Family Medicine; Referring Provider Urology; Visit Provider Urology
DX: R97.20 Elevated prostate specific antigen [PSA] (principal)
CPT/HCPCS: 36415; 84153